=== PATIENT | female | born 1950 | race Caucasian/White ===

== ENCOUNTER 2016-09-30 12:24 | Outpatient (CLI) | payer MEDICARE, MEDICAID | END 2016-09-30 23:59 | DX: R79.89 Other specified abnormal findings of blood chemistry (principal); R68.89 Other general symptoms and signs ==

== ENCOUNTER 2017-07-12 08:00 | Outpatient (CLI) | payer MEDICARE, MEDICAID ==
[2017-07-12 18:11] LABS: ALBUMIN 3.5 g/dL (3.2-5.5); ALBUMIN/GLOBULIN RATIO 0.9 (1.0-2.2); BILIRUBIN,TOTAL 0.7 mg/dL (0.2-1.0); CALCIUM 9.4 mg/dL (8.5-10.3); CREATININE 0.7 mg/dL (0.4-1.0); TOTAL PROTEIN 7.6 g/dL (6.7-8.2)
[2017-07-12 18:36] LABS: HB2 TOTAL 12.9 g/dL; HEMOGLOBIN A1C 1.43 g/dL; HEMOGLOBIN A1C % 12.3 % (4.6-6.2)
== END 2017-07-12 08:01 | disposition home or self-care (01) ==
LOC: LAB.R 08:00
DX: E11.9 Type 2 diabetes mellitus without complications (principal)
CPT/HCPCS: 80053; 83036

== ENCOUNTER 2017-09-21 08:00 | Outpatient (CLI) | payer MEDICARE, MEDICAID ==
[2017-09-21 16:46] LABS: CALCIUM 9.3 mg/dL (8.5-10.3); CREATININE 0.6 mg/dL (0.4-1.0)
[2017-09-21 17:16] LABS: BASOPHILS # (AUTO) 0.2 10^3/uL (0.0-0.1); BASOPHILS % (AUTO) 0.9 %; EOSINOPHILS # (AUTO) 0.4 10^3/uL (0.0-0.7); EOSINOPHILS % (AUTO) 2.1 %; HGB - HEMOGLOBIN 11.8 g/dL (12.0-16.0); LYMPHOCYTES # (AUTO) 3.6 10^3/uL (1.5-3.5); LYMPHOCYTES % (AUTO) 18.6 %; MEAN CORPUSCULAR HEMOGLOBIN 27.2 pg (27.0-31.0); MEAN CORPUSCULAR HGB CONC 32.2 g/dL (32.0-36.0); MEAN CORPUSCULAR VOLUME 84.6 fL (81.0-99.0); MEAN PLATELET VOLUME 8.2 fL (7.9-10.8); MONOCYTES # (AUTO) 0.9 10^3/uL (0.0-1.0); MONOCYTES % (AUTO) 4.9 %; NEUTROPHILS # (AUTO) 14.1 10^3/uL (1.5-6.6); NEUTROPHILS % (AUTO) 73.5 %; PLT - PLATELET COUNT 484 10^3/uL (130-450); RED BLOOD COUNT 4.34 10^6/uL (4.20-5.40); RED CELL DISTRIBUTION WIDTH 14.3 % (12.0-15.0); WHITE BLOOD COUNT 19.1 x10^3/uL (4.8-10.8)
== END 2017-09-21 08:01 ==
LOC: LAB.R 08:00
DX: E11.9 Type 2 diabetes mellitus without complications (principal)
CPT/HCPCS: 80048; 85025

== ENCOUNTER 2017-09-24 08:00 | Outpatient (CLI) | payer MEDICARE, MEDICAID ==
[2017-09-24 15:06] LABS: BASOPHILS % (AUTO) 0.3 %; EOSINOPHILS % (AUTO) 2.1 %; LYMPHOCYTES % (AUTO) 19.4 %; MEAN CORPUSCULAR HEMOGLOBIN 27.2 pg (27.0-31.0); MEAN CORPUSCULAR HGB CONC 32.2 g/dL (32.0-36.0); MEAN CORPUSCULAR VOLUME 84.6 fL (81.0-99.0); MONOCYTES % (AUTO) 4.5 %; NEUTROPHILS % (AUTO) 73.7 %; PLT - PLATELET COUNT 510 10^3/uL (130-450); RED BLOOD COUNT 4.42 10^6/uL (4.20-5.40); RED CELL DISTRIBUTION WIDTH 14.8 % (12.0-15.0); WHITE BLOOD COUNT 21.2 x10^3/uL (4.8-10.8)
[2017-09-24 15:16] LABS: ABNORMAL LYMPHS % (MANUAL) 0 %; BAND NEUTROPHILS % (MANUAL) 0 %
[2017-09-24 16:15] LABS: BASOPHILS # (MANUAL) 0.2 10^3/uL (0-0.1); BASOPHILS % (MANUAL) 1 %; EOSINOPHILS # (MANUAL) 0.4 10^3/uL (0-0.7); LYMPHOCYTES # (MANUAL) 3.8 10^3/uL (1.5-3.5); LYMPHOCYTES % (MANUAL) 16 %; MONOCYTES # (MANUAL) 0.6 10^3/uL (0.0-1.0); NEUTROPHILS # (MANUAL) 16.1 10^3/uL (1.5-6.6); NEUTROPHILS % (MANUAL) 76 %; PLATELET MORPHOLOGY NORMAL APPEARANCE (NORMAL); RBC MORPHOLOGY (MULTIPLE) NORMAL APPEARANCE (NORMAL)
[2017-09-24 16:16] LABS: DIFFERENTIAL COMMENT MANUAL DIFFERENTIAL; PLATELET ESTIMATE, MANUAL INCREASED (>450,000) (NORMAL)
== END 2017-09-24 08:01 ==
LOC: LAB.R 08:00
DX: D72.829 Elevated white blood cell count, unspecified (principal)
CPT/HCPCS: 85025; 85651; 86140

== ENCOUNTER 2017-11-01 17:15 | Outpatient (CLI) | payer MEDICARE, MEDICAID ==
[2017-11-01 19:34] LABS: BASOPHILS % (AUTO) 0.7 %; EOSINOPHILS % (AUTO) 2.2 %; HGB - HEMOGLOBIN 12.5 g/dL (12.0-16.0); MEAN CORPUSCULAR HEMOGLOBIN 27.7 pg (27.0-31.0); MEAN CORPUSCULAR HGB CONC 32.4 g/dL (32.0-36.0); MEAN CORPUSCULAR VOLUME 85.4 fL (81.0-99.0); MEAN PLATELET VOLUME 8.1 fL (7.9-10.8); MONOCYTES % (AUTO) 4.5 %; NEUTROPHILS % (AUTO) 72.6 %; PLT - PLATELET COUNT 400 10^3/uL (130-450); RED CELL DISTRIBUTION WIDTH 14.7 % (12.0-15.0); WHITE BLOOD COUNT 23.7 x10^3/uL (4.8-10.8)
[2017-11-01 19:36] LABS: ABNORMAL LYMPHS % (MANUAL) 0 %; BAND NEUTROPHILS % (MANUAL) 0 %
[2017-11-01 19:51] LABS: EOSINOPHILS # (MANUAL) 0.7 10^3/uL (0-0.7); LYMPHOCYTES # (MANUAL) 5.7 10^3/uL (1.5-3.5); LYMPHOCYTES % (MANUAL) 24 %; MONOCYTES # (MANUAL) 1.2 10^3/uL (0.0-1.0); NEUTROPHILS # (MANUAL) 16.1 10^3/uL (1.5-6.6); NEUTROPHILS % (MANUAL) 68 %
[2017-11-01 19:52] LABS: ALBUMIN 3.4 g/dL (3.2-5.5); ALBUMIN/GLOBULIN RATIO 0.9 (1.0-2.2); BILIRUBIN,TOTAL 0.4 mg/dL (0.2-1.0); CALCIUM 9.5 mg/dL (8.5-10.3); CRP - C-REACTIVE PROTEIN 1.2 mg/dL (0-1.0); PLATELET ESTIMATE, MANUAL NORMAL (130-450,000) (NORMAL); PLATELET MORPHOLOGY PLATELET CLUMPING (NORMAL); RBC MORPHOLOGY (MULTIPLE) NORMAL APPEARANCE (NORMAL); TOTAL PROTEIN 7.2 g/dL (6.7-8.2)
[2017-11-01 19:53] LABS: DIFFERENTIAL COMMENT MANUAL DIFFERENTIAL
[2017-11-01 20:06] LABS: CREATININE 0.5 mg/dL (0.4-1.0)
== END 2017-11-01 17:16 | disposition home or self-care (01) ==
LOC: LAB.R 17:15
DX: D70.8 Other neutropenia (principal); M07.65 Enteropathic arthropathies, hip
CPT/HCPCS: 80053; 85025; 85651; 86140

== ENCOUNTER 2017-11-07 08:00 | Outpatient (CLI) | payer MEDICARE, MEDICAID ==
[2017-11-07 22:51] LABS: BILIRUBIN,URINE NEGATIVE (NEGATIVE); CLARITY,URINE CLEAR (CLEAR); GLUCOSE, URINE (UA) 250 mg/dL (NEGATIVE); KETONES,URINE (UA) TRACE mg/dL (NEGATIVE); LEUKOCYTE ESTERASE, URINE NEGATIVE (NEGATIVE); NITRITE,URINE NEGATIVE (NEGATIVE); OCCULT BLOOD,URINE NEGATIVE (NEGATIVE); PH,URINE 5.5 PH (5.0-7.5); PROTEIN,URINE NEGATIVE (NEGATIVE); UROBILINOGEN,URINE 1 (NORMAL) E.U./dL (NORMAL)
== END 2017-11-07 08:01 | disposition home or self-care (01) ==
LOC: LAB.R 08:00
DX: N39.0 Urinary tract infection, site not specified (principal)
CPT/HCPCS: 81001; 81003; 87086

== ENCOUNTER 2017-11-10 16:30 | Outpatient (CLI) | payer MEDICARE, MEDICAID ==
[2017-11-10 19:49] LABS: ALBUMIN/GLOBULIN RATIO 0.8 (1.0-2.2); BASOPHILS # (AUTO) 0.2 10^3/uL (0.0-0.1); BASOPHILS % (AUTO) 1.1 %; BILIRUBIN,TOTAL 0.4 mg/dL (0.2-1.0); CALCIUM 9.3 mg/dL (8.5-10.3); CREATININE 0.5 mg/dL (0.4-1.0); CRP - C-REACTIVE PROTEIN 1.1 mg/dL (0-1.0); EOSINOPHILS # (AUTO) 0.4 10^3/uL (0.0-0.7); EOSINOPHILS % (AUTO) 2.4 %; HGB - HEMOGLOBIN 11.5 g/dL (12.0-16.0); LYMPHOCYTES # (AUTO) 3.9 10^3/uL (1.5-3.5); LYMPHOCYTES % (AUTO) 20.6 %; MEAN CORPUSCULAR HEMOGLOBIN 28.2 pg (27.0-31.0); MEAN CORPUSCULAR HGB CONC 32.1 g/dL (32.0-36.0); MEAN CORPUSCULAR VOLUME 87.9 fL (81.0-99.0); MEAN PLATELET VOLUME 8.3 fL (7.9-10.8); MONOCYTES % (AUTO) 5.2 %; NEUTROPHILS # (AUTO) 13.5 10^3/uL (1.5-6.6); NEUTROPHILS % (AUTO) 70.7 %; PLT - PLATELET COUNT 531 10^3/uL (130-450); RED BLOOD COUNT 4.08 10^6/uL (4.20-5.40); RED CELL DISTRIBUTION WIDTH 14.8 % (12.0-15.0); TOTAL PROTEIN 6.9 g/dL (6.7-8.2)
== END 2017-11-10 16:31 | disposition home or self-care (01) ==
LOC: LAB.R 16:30
DX: D70.8 Other neutropenia (principal); M07.65 Enteropathic arthropathies, hip
CPT/HCPCS: 80053; 85025; 85651; 86140

== ENCOUNTER 2017-11-15 08:00 | Outpatient (CLI) | payer MEDICARE, MEDICAID ==
[2017-11-15 22:08] LABS: BILIRUBIN,URINE NEGATIVE (NEGATIVE); GLUCOSE, URINE (UA) NEGATIVE (NEGATIVE); KETONES,URINE (UA) TRACE mg/dL (NEGATIVE); LEUKOCYTE ESTERASE, URINE TRACE (NEGATIVE); NITRITE,URINE NEGATIVE (NEGATIVE); OCCULT BLOOD,URINE SMALL (NEGATIVE); PROTEIN,URINE NEGATIVE (NEGATIVE); UROBILINOGEN,URINE 1 (NORMAL) E.U./dL (NORMAL)
[2017-11-15 22:12] LABS: CLARITY,URINE CLEAR (CLEAR)
[2017-11-15 22:24] LABS: AMORPHOUS SEDIMENT,UR Rare /LPF; BACTERIA,URINE Few /HPF (None Seen); SQUAMOUS EPITHELIAL CELL,UR FEW Squamous (<= Few)
== END 2017-11-15 08:01 ==
LOC: LAB.R 08:00
DX: N39.0 Urinary tract infection, site not specified (principal)
CPT/HCPCS: 81001; 81003; 87086

== ENCOUNTER 2017-12-19 16:30 | Outpatient (CLI) | payer MEDICARE, MEDICAID ==
[2017-12-19 16:41] LABS: BASOPHILS # (AUTO) 0.2 10^3/uL (0.0-0.1); BASOPHILS % (AUTO) 0.8 %; EOSINOPHILS # (AUTO) 0.2 10^3/uL (0.0-0.7); EOSINOPHILS % (AUTO) 1.1 %; HGB - HEMOGLOBIN 11.4 g/dL (12.0-16.0); LYMPHOCYTES # (AUTO) 3.1 10^3/uL (1.5-3.5); LYMPHOCYTES % (AUTO) 13.6 %; MEAN CORPUSCULAR HEMOGLOBIN 28.7 pg (27.0-31.0); MEAN CORPUSCULAR HGB CONC 32.5 g/dL (32.0-36.0); MEAN CORPUSCULAR VOLUME 88.2 fL (81.0-99.0); MEAN PLATELET VOLUME 7.9 fL (7.9-10.8); MONOCYTES # (AUTO) 1.2 10^3/uL (0.0-1.0); MONOCYTES % (AUTO) 5.2 %; NEUTROPHILS # (AUTO) 17.9 10^3/uL (1.5-6.6); NEUTROPHILS % (AUTO) 79.3 %; PLT - PLATELET COUNT 718 10^3/uL (130-450); RED BLOOD COUNT 3.98 10^6/uL (4.20-5.40); RED CELL DISTRIBUTION WIDTH 14.8 % (12.0-15.0); WHITE BLOOD COUNT 22.6 x10^3/uL (4.8-10.8)
[2017-12-19 17:05] LABS: PLATELET ESTIMATE, MANUAL INCREASED (>450,000) (NORMAL); PLATELET MORPHOLOGY 1+ GIANT PLATELETS (NORMAL); RBC MORPHOLOGY (MULTIPLE) NORMAL APPEARANCE (NORMAL)
== END 2017-12-19 16:31 | disposition home or self-care (01) ==
LOC: LAB.R 16:30
DX: M79.89 Other specified soft tissue disorders (principal); M86.00 Acute hematogenous osteomyelitis, unspecified site
CPT/HCPCS: 85025; 85651; 86140

== ENCOUNTER 2018-01-13 18:45 | Outpatient (CLI) | payer MEDICARE, MEDICAID ==
[2018-01-13 19:22] LABS: ALBUMIN 2.8 g/dL (3.2-5.5); ALBUMIN/GLOBULIN RATIO 0.7 (1.0-2.2); ALKALINE PHOSPHATASE 94 IU/L (42-121); ALT ALANINE AMINOTRANSFERASE < 10 IU/L (10-60); AST ASPARTATE AMINOTRANSFERASE 21 IU/L (10-42); BILIRUBIN,TOTAL 0.3 mg/dL (0.2-1.0); BUN - BLOOD UREA NITROGEN 11 mg/dL (6-20); CALCIUM 9.1 mg/dL (8.5-10.3); CARBON DIOXIDE - CO2 22 mmol/L (21-32); CHLORIDE 97 mmol/L (101-111); CREATININE 0.5 mg/dL (0.4-1.0); GFR - MDRD 123 (>89); GLUCOSE 187 mg/dL (70-100); SODIUM 132 mmol/L (135-145); TOTAL PROTEIN 6.6 g/dL (6.7-8.2)
[2018-01-13 19:23] LABS: BASOPHILS # (AUTO) 0.3 10^3/uL (0.0-0.1); BASOPHILS % (AUTO) 1.4 %; EOSINOPHILS # (AUTO) 0.4 10^3/uL (0.0-0.7); EOSINOPHILS % (AUTO) 1.8 %; LYMPHOCYTES # (AUTO) 3.8 10^3/uL (1.5-3.5); LYMPHOCYTES % (AUTO) 15.9 %; MEAN CORPUSCULAR HEMOGLOBIN 28.6 pg (27.0-31.0); MEAN CORPUSCULAR HGB CONC 32.8 g/dL (32.0-36.0); MEAN CORPUSCULAR VOLUME 87.4 fL (81.0-99.0); MEAN PLATELET VOLUME 7.2 fL (7.9-10.8); MONOCYTES # (AUTO) 1.1 10^3/uL (0.0-1.0); MONOCYTES % (AUTO) 4.5 %; NEUTROPHILS # (AUTO) 18.2 10^3/uL (1.5-6.6); NEUTROPHILS % (AUTO) 76.4 %; PLT - PLATELET COUNT 653 10^3/uL (130-450); RED BLOOD COUNT 3.83 10^6/uL (4.20-5.40); RED CELL DISTRIBUTION WIDTH 14.4 % (12.0-15.0); WHITE BLOOD COUNT 23.9 x10^3/uL (4.8-10.8)
[2018-01-13 21:39] LABS: PLATELET MORPHOLOGY NORMAL APPEARANCE (NORMAL)
[2018-01-13 21:40] LABS: PLATELET ESTIMATE, MANUAL INCREASED (>450,000) (NORMAL); RBC MORPHOLOGY (MULTIPLE) NORMAL APPEARANCE (NORMAL)
== END 2018-01-13 18:46 | disposition home or self-care (01) ==
LOC: LAB.R 18:45
DX: N85.9 Noninflammatory disorder of uterus, unspecified (principal); N95.0 Postmenopausal bleeding
CPT/HCPCS: 80053; 85025

== ENCOUNTER 2018-02-04 13:55 | Outpatient (CLI) | payer MEDICARE, MEDICAID | END 2018-02-04 13:56 | disposition home or self-care (01) | LOC: RT 13:55 | PROVIDERS: ATTEND Obstetrics & Gynecology Gynecologic Oncology | DX: Z01.810 Encounter for preprocedural cardiovascular examination (principal); N85.9 Noninflammatory disorder of uterus, unspecified | CPT/HCPCS: 93005 ==

== ENCOUNTER 2018-02-04 14:50 | Outpatient (CLI) | payer MEDICARE, MEDICAID ==
--- NOTE | 2018-02-06 08:49 | Ultrasound Report ---
Reason: UTERINE MASS Procedure Date: 02/04/2018 Accession Number: [id number] / [id number] Procedure: US - Pelvic Complete CPT Code: FULL RESULT: EXAM: PELVIC ULTRASOUND EXAM DATE: 02/04/2018 03:19 PM. CLINICAL HISTORY: Uterine mass. Postmenopausal bleeding. LMP 8+ years ago. COMPARISON: None. TECHNIQUE: Realtime transabdominal evaluation of the uterus and adnexa. Patient confined to wheelchair; examination performed in chair, tilted. Patient asked to please not do transvaginal portion of the exam. FINDINGS: Uterus: Anteverted position. 13.2 x 5.3 x 7.7 cm, volume 281 cc. Heterogeneous myometrium. Heterogeneous vascular transmural mass containing punctate calcifications measuring approximately 6.5 x 5.5 x 5.8 cm. Endometrium: 4 mm. Normal. Cervix: Unremarkable. Right Ovary/Adnexa: 1.9 x 1.0 x 1.5 cm, volume 1.5 cc. Normal echotexture. No adnexal mass is seen. Left Ovary/Adnexa: 2.4 x 1.5 x 1.5 cm, volume 2.8 cc. Normal echotexture. No adnexal mass is seen. Free Fluid: None. Other: None. IMPRESSION: 1. Heterogeneous uterine mass with evaluation complicated by technical limitations detailed above. Differential considerations include fibroid versus other. Consider further imaging with female pelvis protocol MRI, versus surgical evaluation. 2. Unremarkable postmenopausal sonographic appearance of the ovaries. RADIA
== END 2018-02-04 14:51 | disposition home or self-care (01) ==
LOC: DI 14:50
PROVIDERS: ATTEND Obstetrics & Gynecology Gynecologic Oncology
DX: Z01.810 Encounter for preprocedural cardiovascular examination (principal); N85.9 Noninflammatory disorder of uterus, unspecified; N95.0 Postmenopausal bleeding
CPT/HCPCS: 76856; 93005

== ENCOUNTER 2018-03-06 16:00 | Outpatient (CLI) | payer MEDICARE, MEDICAID ==
[2018-03-06 16:57] LABS: BASOPHILS # (AUTO) 0.2 10^3/uL (0.0-0.1); BASOPHILS % (AUTO) 1.2 %; EOSINOPHILS # (AUTO) 0.3 10^3/uL (0.0-0.7); EOSINOPHILS % (AUTO) 1.3 %; LYMPHOCYTES # (AUTO) 5.1 10^3/uL (1.5-3.5); LYMPHOCYTES % (AUTO) 25.1 %; MEAN CORPUSCULAR HEMOGLOBIN 30.4 pg (27.0-31.0); MEAN CORPUSCULAR HGB CONC 35.4 g/dL (32.0-36.0); MEAN CORPUSCULAR VOLUME 85.9 fL (81.0-99.0); MEAN PLATELET VOLUME 7.3 fL (7.9-10.8); MONOCYTES # (AUTO) 0.8 10^3/uL (0.0-1.0); MONOCYTES % (AUTO) 4.1 %; NEUTROPHILS # (AUTO) 13.8 10^3/uL (1.5-6.6); NEUTROPHILS % (AUTO) 68.3 %; PLT - PLATELET COUNT 690 10^3/uL (130-450); RED BLOOD COUNT 3.95 10^6/uL (4.20-5.40); RED CELL DISTRIBUTION WIDTH 14.8 % (12.0-15.0); WHITE BLOOD COUNT 20.2 x10^3/uL (4.8-10.8)
[2018-03-06 17:03] LABS: ALBUMIN 2.6 g/dL (3.2-5.5); ALBUMIN/GLOBULIN RATIO 0.7 (1.0-2.2); ALKALINE PHOSPHATASE 117 IU/L (42-121); ALT ALANINE AMINOTRANSFERASE < 10 IU/L (10-60); AST ASPARTATE AMINOTRANSFERASE 14 IU/L (10-42); BILIRUBIN,TOTAL 0.6 mg/dL (0.2-1.0); BUN - BLOOD UREA NITROGEN 14 mg/dL (6-20); CALCIUM 8.6 mg/dL (8.5-10.3); CARBON DIOXIDE - CO2 25 mmol/L (21-32); CHLORIDE 98 mmol/L (101-111); CREATININE 0.3 mg/dL (0.4-1.0); GFR - MDRD 222 (>89); GLUCOSE 78 mg/dL (70-100); SODIUM 132 mmol/L (135-145); TOTAL PROTEIN 6.3 g/dL (6.7-8.2)
[2018-03-06 17:52] LABS: CRP - C-REACTIVE PROTEIN < 1.0 mg/dL (0-1.0)
[2018-03-06 18:16] LABS: PLATELET ESTIMATE, MANUAL INCREASED (>450,000) (NORMAL); PLATELET MORPHOLOGY NORMAL APPEARANCE (NORMAL); RBC MORPHOLOGY (MULTIPLE) NORMAL APPEARANCE (NORMAL)
[2018-03-06 18:47] LABS: HB2 TOTAL 12.5 g/dL; HEMOGLOBIN A1C 0.41 g/dL; HEMOGLOBIN A1C % 5.2 % (4.6-6.2)
== END 2018-03-06 16:01 | disposition home or self-care (01) ==
LOC: LAB.R 16:00
DX: I10 Essential (primary) hypertension (principal); E11.9 Type 2 diabetes mellitus without complications; R79.82 Elevated C-reactive protein (CRP)
CPT/HCPCS: 80053; 83036; 85025; 85651; 86140

== ENCOUNTER 2018-03-31 14:28 | Outpatient (CLI) | payer MEDICARE, OTHER, MEDICAID ==
[2018-03-31] MEDS ORDERED: DOBUTAMINE IV ONE (14:29)
--- NOTE | 2018-04-04 13:07 | CARDIAC PROCEDURE NOTE ---
DATE OF SERVICE: 03/31/2018 Physician: Dalia Dsouza MD, [facility] INDICATION: Abnormal EKG, preop evaluation. CARDIAC RISK FACTORS: Hypertension, diabetes, elevated cholesterol, postmenopausal status, unknown family history of heart disease. SUMMARY: After signing informed consent, the patient underwent a dobutamine stress echo. Resting heart rate 110, peak heart rate 136 (90% predicted maximum heart rate for age). Resting blood pressure 122/60, peak blood pressure 140/50. Dobutamine was infused for 3 minutes at 10 mcg/kg and 2 minutes and 4 seconds at 20 mcg/kg. The patient achieved an adequate peak heart rate of 136 (90% PMHR). Normal blood pressure response to dobutamine. The patient was tachycardic at rest, however, states she was nervous and had not taken morning medications. The patient had no symptoms of chest pain or shortness of breath. RESTING EKG: Sinus tachycardia, Q-waves in leads III and aVF and V5 and V6, diffuse ST segment scooping depressions and diffuse biphasic or flat T waves, prolonged QT interval. EKG AT PEAK: No change in abnormal ST segments or T waves. SUMMARY: 1. Abnormal resting EKG. 2. No new EKG changes during dobutamine stress. 3. Nuclear images reported separately. cc: Elma Sears MD TD: 04/04/2018 12:39 MTDD
== END 2018-03-31 14:29 | disposition home or self-care (01) ==
LOC: DI 14:28
PROVIDERS: ATTEND Internal Medicine Cardiovascular Disease
DX: R94.31 Abnormal electrocardiogram [ECG] [EKG] (principal)
CPT/HCPCS: 93351; J1250

== ENCOUNTER 2018-05-19 17:30 | Outpatient (CLI) | payer MEDICARE, OTHER, MEDICAID ==
[2018-05-19 19:30] LABS: BASOPHILS # (AUTO) 0.2 10^3/uL (0.0-0.1); EOSINOPHILS # (AUTO) 0.4 10^3/uL (0.0-0.7); EOSINOPHILS % (AUTO) 2.8 %; HGB - HEMOGLOBIN 10.2 g/dL (12.0-16.0); LYMPHOCYTES # (AUTO) 3.9 10^3/uL (1.5-3.5); LYMPHOCYTES % (AUTO) 24.4 %; MEAN CORPUSCULAR HEMOGLOBIN 28.7 pg (27.0-31.0); MEAN CORPUSCULAR HGB CONC 32.2 g/dL (32.0-36.0); MEAN CORPUSCULAR VOLUME 89.1 fL (81.0-99.0); MEAN PLATELET VOLUME 7.4 fL (7.9-10.8); MONOCYTES # (AUTO) 0.7 10^3/uL (0.0-1.0); MONOCYTES % (AUTO) 4.4 %; NEUTROPHILS # (AUTO) 10.7 10^3/uL (1.5-6.6); NEUTROPHILS % (AUTO) 67.4 %; PLT - PLATELET COUNT 751 10^3/uL (130-450); RED BLOOD COUNT 3.57 10^6/uL (4.20-5.40); RED CELL DISTRIBUTION WIDTH 15.1 % (12.0-15.0); WHITE BLOOD COUNT 15.9 x10^3/uL (4.8-10.8)
== END 2018-05-19 23:59 | disposition home or self-care (01) ==
LOC: LAB.R 17:30
DX: D72.829 Elevated white blood cell count, unspecified (principal)
CPT/HCPCS: 85025; 85651; 86140

== ENCOUNTER 2018-06-29 08:00 | Outpatient (CLI) | payer MEDICARE, OTHER, MEDICAID ==
[2018-06-29 15:32] LABS: BASOPHILS # (AUTO) 0.1 10^3/uL (0.0-0.1); BASOPHILS % (AUTO) 0.8 %; EOSINOPHILS # (AUTO) 0.4 10^3/uL (0.0-0.7); EOSINOPHILS % (AUTO) 3.3 %; HGB - HEMOGLOBIN 10.9 g/dL (12.0-16.0); LYMPHOCYTES # (AUTO) 3.2 10^3/uL (1.5-3.5); LYMPHOCYTES % (AUTO) 29.2 %; MEAN CORPUSCULAR HEMOGLOBIN 28.7 pg (27.0-31.0); MEAN CORPUSCULAR HGB CONC 32.5 g/dL (32.0-36.0); MEAN CORPUSCULAR VOLUME 88.1 fL (81.0-99.0); MEAN PLATELET VOLUME 8.3 fL (7.9-10.8); MONOCYTES # (AUTO) 0.6 10^3/uL (0.0-1.0); MONOCYTES % (AUTO) 5.5 %; NEUTROPHILS # (AUTO) 6.6 10^3/uL (1.5-6.6); NEUTROPHILS % (AUTO) 61.2 %; PLT - PLATELET COUNT 454 10^3/uL (130-450); RED CELL DISTRIBUTION WIDTH 14.3 % (12.0-15.0); WHITE BLOOD COUNT 10.8 x10^3/uL (4.8-10.8)
[2018-06-29 15:41] LABS: ALBUMIN 2.5 g/dL (3.2-5.5); ALBUMIN/GLOBULIN RATIO 0.7 (1.0-2.2); ALKALINE PHOSPHATASE 96 IU/L (42-121); ALT ALANINE AMINOTRANSFERASE < 10 IU/L (10-60); AST ASPARTATE AMINOTRANSFERASE 16 IU/L (10-42); BILIRUBIN,TOTAL 0.4 mg/dL (0.2-1.0); BUN - BLOOD UREA NITROGEN 11 mg/dL (6-20); CALCIUM 8.8 mg/dL (8.5-10.3); CARBON DIOXIDE - CO2 26 mmol/L (21-32); CHLORIDE 103 mmol/L (101-111); CREATININE 0.4 mg/dL (0.4-1.0); GFR - MDRD 159 (>89); GLUCOSE 159 mg/dL (70-100); SODIUM 137 mmol/L (135-145); TOTAL PROTEIN 6.1 g/dL (6.7-8.2)
[2018-06-29 19:34] LABS: HEMOGLOBIN A1C 0.48 g/dL; HEMOGLOBIN A1C % 6.1 % (4.6-6.2)
== END 2018-06-29 23:59 | disposition home or self-care (01) ==
LOC: LAB.R 08:00
PROVIDERS: ATTEND Family Medicine
DX: D72.829 Elevated white blood cell count, unspecified (principal); M07.65 Enteropathic arthropathies, hip; D64.9 Anemia, unspecified; E11.9 Type 2 diabetes mellitus without complications; E46 Unspecified protein-calorie malnutrition; I10 Essential (primary) hypertension
CPT/HCPCS: 80053; 83036; 85025; 85651; 86140

== ENCOUNTER 2018-08-01 11:50 | Outpatient (CLI) | payer MEDICARE, OTHER, MEDICAID | END 2018-08-01 23:59 | disposition home or self-care (01) | LOC: LAB.R 11:50 | DX: E78.6 Lipoprotein deficiency (principal) | CPT/HCPCS: 84132 ==

== ENCOUNTER 2018-09-10 08:58 | Outpatient (CLI) | payer MEDICARE, OTHER, MEDICAID | END 2018-09-10 08:59 | disposition critical access hospital (66) | LOC: EMS 08:58 | PROVIDERS: ATTEND Surgery | DX: R33.9 Retention of urine, unspecified (principal); R14.0 Abdominal distension (gaseous) | CPT/HCPCS: A0425; A0429 ==

== ENCOUNTER 2018-09-10 09:10 | Emergency (ER) | payer MEDICARE, OTHER, MEDICAID ==
--- NOTE | 2018-09-10 09:57 | ED Physician Documentation ---
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 At the time of my evaluation a catheter has been placed and she is no longer in pain. Review of Systems Constitutional: denies: Fever, Chills, Myalgias Eyes: denies: Decreased vision Ears: denies: Ear pain Nose: denies: Congestion Throat: denies: Sore throat Cardiac: denies: Chest pain / pressure, Palpitations Respiratory: denies: Dyspnea, Cough GI: reports: Abdominal Pain. 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 : None HEENT: None Psych: Depression, Anxiety Musculoskeletal: None Derm: None - Past Surgical History Past Surgical History: Yes General: Appendectomy Ortho: Hip replacement HEENT: Tonsil/Adenoidectomy - Present Medications Home Medications: Ambulatory Orders Medication Instructions Recorded Confirmed Insulin Glargine [Lantus] 35 units SUBQ QPM 01/05/14 03/31/15 Insulin Lispro [Humalog] 30 units SUBQ AC 01/05/14 03/31/15 Lovastatin 10 mg PO QPM 01/05/14 03/31/15 FLUoxetine [PROzac] 10 mg PO DAILY 03/18/15 03/31/15 Lisinopril 10 mg PO DAILY 03/18/15 03/31/15 oxyCODONE [Roxicodone] 5 mg PO Q4H PRN 03/18/15 03/31/15 Sulfamethoxazole/Trimethoprim 1 each PO BID #14 tablet 09/10/18 [Sulfamethoxazole-Tmp Ds Tablet] - Allergies Allergies/Adverse Reactions: Allergies Allergy/AdvReac Type Severity Reaction Status Date / Time vancomycin Allergy Unknown Unknown Verified 09/10/18 10:51 paper tape Allergy Itching Uncoded 01/05/14 15:04 - Social History Does the pt smoke?: No Smoking Status: Never smoker Does the pt drink ETOH?: No Does the pt have substance abuse?: No PD ED PE NORMAL - Vitals Vital signs reviewed: Yes (normal ) - General General: Alert and oriented X 3, No acute distress, Well developed/nourished - HEENT HEENT: Atraumatic, PERRL, EOMI - Neck Neck: Supple, no meningeal sign - Cardiac Cardiac: RRR, No murmur - Respiratory Respiratory: No respiratory distress, Clear bilaterally - Abdomen Abdomen: Soft, Non tender - Back Back: No CVA TTP, No spinal TTP - Derm Derm: Normal color, Warm and dry, No rash - Extremities Extremities: No deformity, No edema - Neuro Neuro: Alert and oriented X 3, guest services manager 2-12 intact, No motor deficit, No sensory deficit, Normal speech Eye Opening: Spontaneous Motor: Obeys Commands Verbal: Oriented GCS Score: 15 - Psych Psych: Normal mood, Normal affect Results - Vitals Vitals: Vital Signs - 24 hr 09/10/18 09:38 Temperature 37.0 C Heart Rate 97 Respiratory 18 Rate Blood Pressure 112/72 O2 Saturation 99 Oxygen O2 Source Room air - Labs Labs: Laboratory Tests 09/10/18 09:42 Urine Color DARK YELLOW Urine Clarity HAZY Urine pH 5.5 Ur Specific [place] 1.020 Urine Protein TRACE Urine Glucose (UA) NEGATIVE Urine Ketones NEGATIVE Urine Occult Blood SMALL H Urine Nitrite POSITIVE H Urine Bilirubin NEGATIVE Urine Urobilinogen 0.2 (NORMAL) Ur Leukocyte Esterase TRACE H Urine RBC 0-5 Urine WBC >25 H Ur Squamous Epith Cells RARE Squamous Amorphous Sediment Few Urine Bacteria Many H Ur Microscopic Review INDICATED Urine Culture Comments INDICATED PD MEDICAL DECISION MAKING - ED course Complexity details: reviewed results, re-evaluated patient, considered differential, d/w patient ED course: 67-year-old female with acute urinary retention has a Cano catheter placed and she does have obvious infection in the urine. She is administered Rocephin 1 g IM and we will place her on some . Departure - Departure Disposition: 01 Home, Self Care Clinical Impression: Urinary tract infection Qualifiers: Urinary tract infection type: acute cystitis Hematuria presence: without hematuria Qualified Code(s): N30.00 - Acute cystitis without hematuria Instructions: ED UTI Cystitis Female, ED Retention Urinary Female, ED Catheter Care Cano Follow-Up: Kyree Marsh DO [Primary Care Provider] - Prescriptions: Sulfamethoxazole/Trimethoprim [Sulfamethoxazole-Tmp Ds Tablet] 1 each PO BID #14 tablet
[2018-09-10 10:16] LABS: BILIRUBIN,URINE NEGATIVE (NEGATIVE); GLUCOSE, URINE (UA) NEGATIVE (NEGATIVE); KETONES,URINE (UA) NEGATIVE (NEGATIVE); LEUKOCYTE ESTERASE, URINE TRACE (NEGATIVE); NITRITE,URINE POSITIVE (NEGATIVE); OCCULT BLOOD,URINE SMALL (NEGATIVE); PH,URINE 5.5 PH (5.0-7.5); PROTEIN,URINE TRACE mg/dL (NEGATIVE); UROBILINOGEN,URINE 0.2 (NORMAL) E.U./dL (NORMAL)
[2018-09-10 10:20] LABS: CLARITY,URINE HAZY (CLEAR)
[2018-09-10 10:32] LABS: BACTERIA,URINE Many /HPF (None Seen); RBC,URINE 0-5 /HPF (0-5); SQUAMOUS EPITHELIAL CELL,UR RARE Squamous (<= Few)
[2018-09-10 10:33] LABS: AMORPHOUS SEDIMENT,UR Few /LPF
[2018-09-10] MEDS ORDERED: cefTRIAXone 1 GM VIAL IM STA (10:48)
[2018-09-10] MEDS ORDERED: LIDOCAINE 1% 2 ML VIAL MC ONE (10:48)
[2018-09-10 15:34] VITALS: BP 122/77
== END 2018-09-10 16:22 | disposition home or self-care (01) ==
LOC: EDUNIT# → ED 09:10
DX: N30.00 Acute cystitis without hematuria (principal); R33.9 Retention of urine, unspecified; I10 Essential (primary) hypertension; E11.9 Type 2 diabetes mellitus without complications; Z79.4 Long term (current) use of insulin; Z96.643 Presence of artificial hip joint, bilateral
CPT/HCPCS: 51702; 81001; 81003; 87086; 87181; 96372; 99283; 99284

== ENCOUNTER 2018-09-20 08:42 | Outpatient (CLI) | payer MEDICARE, OTHER, MEDICAID ==
[2018-09-20 15:27] LABS: BASOPHILS # (AUTO) 0.1 10^3/uL (0.0-0.1); EOSINOPHILS # (AUTO) 0.4 10^3/uL (0.0-0.7); EOSINOPHILS % (AUTO) 3.9 %; HGB - HEMOGLOBIN 11.9 g/dL (12.0-16.0); LYMPHOCYTES # (AUTO) 2.5 10^3/uL (1.5-3.5); LYMPHOCYTES % (AUTO) 24.4 %; MEAN CORPUSCULAR HGB CONC 32.1 g/dL (32.0-36.0); MEAN CORPUSCULAR VOLUME 84.1 fL (81.0-99.0); MEAN PLATELET VOLUME 8.5 fL (7.9-10.8); MONOCYTES # (AUTO) 0.5 10^3/uL (0.0-1.0); MONOCYTES % (AUTO) 4.4 %; NEUTROPHILS # (AUTO) 6.8 10^3/uL (1.5-6.6); NEUTROPHILS % (AUTO) 66.3 %; PLT - PLATELET COUNT 393 10^3/uL (130-450); RED BLOOD COUNT 4.39 10^6/uL (4.20-5.40); RED CELL DISTRIBUTION WIDTH 15.8 % (12.0-15.0); WHITE BLOOD COUNT 10.3 x10^3/uL (4.8-10.8)
[2018-09-20 15:49] LABS: ALBUMIN 3.5 g/dL (3.2-5.5); ALBUMIN/GLOBULIN RATIO 0.9 (1.0-2.2); BILIRUBIN,TOTAL 0.6 mg/dL (0.2-1.0); CALCIUM 9.9 mg/dL (8.5-10.3); CREATININE 0.5 mg/dL (0.4-1.0); TOTAL PROTEIN 7.5 g/dL (6.7-8.2)
[2018-09-20 16:25] LABS: HB2 TOTAL 12.7 g/dL; HEMOGLOBIN A1C 0.69 g/dL; HEMOGLOBIN A1C % 7.1 % (4.6-6.2)
== END 2018-09-20 08:43 | disposition home or self-care (01) ==
LOC: LAB.WCP 08:42
PROVIDERS: ATTEND Physician Assistant
DX: I10 Essential (primary) hypertension (principal); E11.9 Type 2 diabetes mellitus without complications
CPT/HCPCS: 36415; 80053; 83036; 85025

== ENCOUNTER 2018-10-25 10:30 | Outpatient (CLI) | payer MEDICARE, OTHER, MEDICAID | END 2018-10-25 10:31 | disposition home or self-care (01) | LOC: LAB.WCP 10:30 | PROVIDERS: ATTEND Physician Assistant | DX: R35.0 Frequency of micturition (principal) | CPT/HCPCS: 81002; 87086; 87181 ==

== ENCOUNTER 2018-10-26 08:25 | Outpatient (CLI) | payer MEDICARE, OTHER, MEDICAID | END 2018-10-26 08:26 | disposition critical access hospital (66) | LOC: EMS 08:25 | PROVIDERS: ATTEND Surgery | DX: M79.662 Pain in left lower leg (principal); V00.818A Other accident with wheelchair (powered), initial encounter | CPT/HCPCS: A0425; A0429 ==

== ENCOUNTER 2018-10-26 08:47 | Emergency (ER) | payer MEDICARE, OTHER, MEDICAID ==
--- NOTE | 2018-10-26 09:00 | ED Physician Documentation ---
PD HPI LOWER EXT INJURY - Stated complaint Stated Complaint: L LEG PAIN - History obtained from History obtained from: Patient, EMS - History of Present Illness PD HPI LOW EXT INJURY LOCATION: Left, Knee, Lower leg Type of injury: Blunt / blow Timing - onset: Yesterday Worsened by: Moving, Palpating Associated symptoms: Swelling Contributing factors: Prior ortho surgery - Additional information Additional information: The patient is a 68-year-old female who arrives via ambulance, complaining of pain in her left knee and lower leg. 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 Yesterday she was at the doctor's office and accidentally banged her left knee into the wall while in her wheelchair. She denies any other injuries. 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 : None HEENT: None Psych: Depression, Anxiety Musculoskeletal: None Derm: None - Past Surgical History Past Surgical History: Yes General: Appendectomy Ortho: Hip replacement, Other (S/P bilateral hip prostheses removal for infection.) /FLIGHT CREW TIME CLERK: Hysterectomy HEENT: Tonsil/Adenoidectomy - Present Medications Home Medications: Ambulatory Orders Medication Instructions Recorded Confirmed oxyCODONE [Roxicodone] 5 mg PO Q4H PRN 03/18/15 03/31/15 Amlodipine Besylate 5 mg DAILY 10/26/18 10/26/18 Aspirin 81 mg DAILY 10/26/18 10/26/18 Atorvastatin [Lipitor] 10 mg DAILY 10/26/18 10/26/18 metFORMIN [Glucophage] 500 mg DAILY 10/26/18 10/26/18 - Allergies Allergies/Adverse Reactions: Allergies Allergy/AdvReac Type Severity Reaction Status Date / Time vancomycin Allergy Unknown Unknown Verified 10/26/18 09:05 paper tape Allergy Itching Uncoded 01/05/14 15:04 - Social History Does the pt smoke?: No Smoking Status: Never smoker Does the pt drink ETOH?: No Does the pt have substance abuse?: No PD ED PE NORMAL - Vitals Vital signs reviewed: Yes - General General: Alert and oriented X 3, Well developed/nourished - HEENT HEENT: Atraumatic, Moist mucous membranes - Neck Neck: No adenopathy, No JVD - Cardiac Cardiac: RRR - Respiratory Respiratory: No respiratory distress, Clear bilaterally - Abdomen Abdomen: Soft, Non tender - Derm Derm: No rash - Extremities Extremities: No calf tenderness / cord, Other (There is slight swelling about the left knee, with associated tenderness to palpation. She resists range of motion of the left knee secondary to pain. There is no calf tenderness. Distal neurovascular is intact. There is superficial skin sore on the left big toe.) - Neuro Neuro: Alert and oriented X 3, No motor deficit, No sensory deficit Results - Vitals Vitals: Vital Signs - 24 hr 10/26/18 10/26/18 10/26/18 08:48 09:20 10:17 Temperature 36 C L 37 C Heart Rate 90 90 87 Respiratory 16 18 16 Rate Blood Pressure 173/61 H 154/92 H 139/78 H O2 Saturation 100 92 100 Oxygen O2 Source Room air - Rads (name of study) Left knee Radiology: Prelim report reviewed, EMP read contemporaneously, See rad report (Nonunion or incomplete union at the previous distal femoral fracture.) PD MEDICAL DECISION MAKING - ED course Complexity details: reviewed old records, reviewed results, re-evaluated patient, considered differential, d/w patient ED course: The patient's presentation is significant for contusion to the left knee. X-ray reveals an old distal femur fracture with malunion, intact with hardware. There is no new fracture identified. Treatment in the emergency department included administration of oxycodone 5 mg orally. This did improve her pain. I discussed with her and her female business account specialist the results of the x-ray, symptomatic treatment and outpatient follow- up, as well as potentially worrisome signs or symptoms that should prompt reevaluation in the emergency department. 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 You can continue to use your previously prescribed pain medication as needed. Follow-up with your primary physician within 2 weeks. Call to schedule an appointment. Return to the emergency department if increasing pain or swelling, or otherwise worsening symptoms.
[2018-10-26] MEDS ORDERED: oxyCODONE 5 MG TABLET PO STA (09:34)
--- NOTE | 2018-10-26 09:49 | XRAY Report ---
Reason: left knee pain after impacting wall. Procedure Date: 10/26/2018 Accession Number: [id number] / [id number] Procedure: XR - Knee 2 View LT CPT Code: FULL RESULT: EXAM: LEFT KNEE RADIOGRAPHY EXAM DATE: 10/26/2018 08:56 AM. CLINICAL HISTORY: Left knee pain after impacting wall. COMPARISON: KNEE 4 VIEW LT 01/05/2014 3:06 PM. TECHNIQUE: 3 views. FINDINGS: Bones: Nonunion or incomplete union at the previous distal femoral comminuted fracture. Osteopenia. Lateral plate and distal screws. Proximal portion of the plate not visualized. Joints: Degenerative changes with osteophytes in the medial joint. Small effusion. Soft Tissues: Vascular calcifications. No soft tissue swelling. IMPRESSION: Nonunion or incomplete union at the previous distal femoral fracture RADIA
[2018-10-26 10:59] VITALS: BP 136/73
== END 2018-10-26 12:04 | disposition home or self-care (01) ==
LOC: EDUNIT# → ED 08:47
DX: S80.02XA Contusion of left knee, initial encounter (principal); V00.812A Wheelchair (powered) colliding with stationary object, initial encounter; Y92.59 Other trade areas as the place of occurrence of the external cause; S72.402P Unspecified fracture of lower end of left femur, subsequent encounter for closed fracture with malunion; X58.XXXD Exposure to other specified factors, subsequent encounter; L98.9 Disorder of the skin and subcutaneous tissue, unspecified; I10 Essential (primary) hypertension; E11.9 Type 2 diabetes mellitus without complications; Z79.84 Long term (current) use of oral hypoglycemic drugs; Z79.82 Long term (current) use of aspirin
CPT/HCPCS: 73560; 99282; 99283; A9270

== ENCOUNTER 2018-10-26 12:02 | Outpatient (CLI) | payer MEDICARE, OTHER, MEDICAID | END 2018-10-26 12:03 | disposition home or self-care (01) | LOC: EMS 12:02 | PROVIDERS: ATTEND Surgery | DX: S80.02XA Contusion of left knee, initial encounter (principal); Z74.01 Bed confinement status; Z89.622 Acquired absence of left hip joint; Z89.621 Acquired absence of right hip joint; V00.818A Other accident with wheelchair (powered), initial encounter | CPT/HCPCS: A0425; A0428 ==

== ENCOUNTER 2018-12-28 | Outpatient (CLI) | payer MEDICARE, OTHER, MEDICAID | END 2018-12-28 11:56 | disposition critical access hospital (66) | DX: R44.3 Hallucinations, unspecified (principal); R82.90 Unspecified abnormal findings in urine | CPT/HCPCS: A0425; A0429 ==

== ENCOUNTER 2018-12-28 12:10 | Inpatient (IN) | payer MEDICARE, OTHER, MEDICAID ==
[2018-12-28] MEDS ORDERED: SODIUM CHLORIDE 0.9% 1,000 ML IV ONE (12:40)
[2018-12-28] MEDS ORDERED: LACTATED RINGERS 1,000 ML IV STA (12:40)
--- NOTE | 2018-12-28 12:43 | ED Physician Documentation ---
History of Present Illness - Stated complaint Stated Complaint: DEHYDRATED - Chief complaint Chief Complaint: General - History obtained from History obtained from: Patient - History of Present Illness Timing: Other (This is a 68-year-old woman who is the resident of because she had hip replacements that became complicated and basically were infected and now she has no hip on either side and she is accepting of the fact that she is paraplegic and unable to walk. She is incontinent of urine. Over the last week she has been having troubles with both visual nodule auditory hallucinations despite no history of psychiatric illness or new medications. She also had a fever a couple of days ago which was poorly documented and foul and orange smelling urine. 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 : None HEENT: None Psych: Depression, Anxiety Musculoskeletal: None Derm: None - Past Surgical History Past Surgical History: Yes General: Appendectomy Ortho: Hip replacement, Other /POST OFFICE MANAGER: Hysterectomy HEENT: Tonsil/Adenoidectomy - Present Medications Home Medications: Ambulatory Orders Medication Instructions Recorded Confirmed RX: oxyCODONE [Roxicodone] 5 mg PO Q4H PRN 03/18/15 03/31/15 RX: Amlodipine Besylate 5 mg DAILY 10/26/18 10/26/18 RX: Aspirin 81 mg DAILY 10/26/18 10/26/18 RX: Atorvastatin [Lipitor] 10 mg DAILY 10/26/18 10/26/18 RX: metFORMIN [Glucophage] 500 mg DAILY 10/26/18 10/26/18 - Allergies Allergies/Adverse Reactions: Allergies Allergy/AdvReac Type Severity Reaction Status Date / Time vancomycin Allergy Unknown Unknown Verified 12/28/18 12:17 paper tape Allergy Itching Uncoded 01/05/14 15:04 - Social History Does the pt smoke?: No Smoking Status: Never smoker Does the pt drink ETOH?: No Does the pt have substance abuse?: No - Immunizations Immunizations are current?: Yes PD ED PE NORMAL - Vitals Vital signs reviewed: Yes - General General: No acute distress, Other (He is alert and oriented to person place and events, but a little off on time and is surprised when I tell her it is , she thought it was Tuesday.) - HEENT HEENT: PERRL, EOMI, Other (Very dry mucous membranes) - Cardiac Cardiac: Other (Slight regular tachycardia without murmur) - Respiratory Respiratory: No respiratory distress, Clear bilaterally - Abdomen Abdomen: Normal bowel sounds, Soft, Non tender - Extremities Extremities: No edema, No calf tenderness / cord - Neuro Neuro: Alert and oriented X 3, Normal speech Results - Vitals Vitals: Vital Signs - 24 hr 12/28/18 12/28/18 12:17 14:30 Temperature 36.7 C Heart Rate 103 H 100 Respiratory 15 17 Rate Blood Pressure 107/64 110/58 L O2 Saturation 95 98 Oxygen O2 Source Room air - Labs Labs: Laboratory Tests 12/28/18 12/28/18 12/28/18 13:00 13:00 13:10 WBC 28.2 H RBC 3.70 L Hgb 10.3 L Hct 32.2 L MCV 87.0 MCH 27.8 MCHC 32.0 RDW 15.0 Plt Count 299 MPV 9.5 Neut # (Auto) 24.0 H Lymph # (Auto) 2.0 Collin # (Auto) 1.5 H Eos # (Auto) 0.3 Baso # (Auto) 0.1 Absolute Nucleated RBC 0.00 Nucleated RBC % 0.0 Manual Slide Review Indicated WBC Morphology Platelet Estimate NORMAL (130-450,000) Platelet Morphology NORMAL APPEARANCE RBC Morph Micro Appear NORMAL APPEARANCE Sodium 136 Potassium 3.2 L Chloride 98 L Carbon Dioxide 23 Anion Gap 15.0 H BUN 19 Creatinine 0.7 Estimated GFR (MDRD) 83 L Glucose 141 H Lactic Acid 1.0 Calcium 9.3 Total Bilirubin 1.3 H AST 14 ALT < 10 L Alkaline Phosphatase 124 H Total Protein 6.1 L Albumin 2.2 L Globulin 3.9 Albumin/Globulin Ratio 0.6 L Lipase 16 L Urine Color Urine Clarity Urine pH Ur Specific [place] Urine Protein Urine Glucose (UA) Urine Ketones Urine Occult Blood Urine Nitrite Urine Bilirubin Urine Urobilinogen Ur Leukocyte Esterase Urine RBC Urine WBC Ur Squamous Epith Cells Urine Bacteria Ur Microscopic Review Urine Culture Comments 12/28/18 13:23 WBC RBC Hgb Hct MCV MCH MCHC RDW Plt Count MPV Neut # (Auto) Lymph # (Auto) [place] # (Auto) Eos # (Auto) Baso # (Auto) Absolute Nucleated RBC Nucleated RBC % Manual Slide Review WBC Morphology Platelet Estimate Platelet Morphology RBC Morph Micro Appear Sodium Potassium Chloride Carbon Dioxide Anion Gap BUN Creatinine Estimated GFR (MDRD) Glucose Lactic Acid Calcium Total Bilirubin AST ALT Alkaline Phosphatase Total Protein Albumin Globulin Albumin/Globulin Ratio Lipase Urine Color YELLOW Urine Clarity CLOUDY Urine pH 6.0 Ur Specific [place] 1.010 Urine Protein 30 H Urine Glucose (UA) NEGATIVE Urine Ketones 15 H Urine Occult Blood SMALL H Urine Nitrite POSITIVE H Urine Bilirubin NEGATIVE Urine Urobilinogen 1 (NORMAL) Ur Leukocyte Esterase LARGE H Urine RBC 6-10 H Urine WBC >25 H Ur Squamous Epith Cells FEW Squamous Urine Bacteria Many H Ur Microscopic Review INDICATED Urine Culture Comments INDICATED PD MEDICAL DECISION MAKING - ED course ED course: 68-year-old woman presents with an acute encephalopathy marked by poor appetite, hallucinations and reported fever. She appears quite dehydrated and is found to have a UTI with WBC 28 thousand. She was cultured up and given Rocephin and a call was placed to Dr. Dsouza for admission. Departure - Departure Disposition: 66 [facility] DC/Xfer Clinical Impression: UTI (urinary tract infection), Dehydration, Encephalopathy Condition: Serious Discharge Date/Time: 12/28/18 16:08
[2018-12-28 13:28] LABS: BASOPHILS # (AUTO) 0.1 10^3/uL (0.0-0.1); BASOPHILS % (AUTO) 0.4 %; EOSINOPHILS # (AUTO) 0.3 10^3/uL (0.0-0.7); HGB - HEMOGLOBIN 10.3 g/dL (12.0-16.0); MEAN CORPUSCULAR HEMOGLOBIN 27.8 pg (27.0-31.0); MEAN PLATELET VOLUME 9.5 fL (7.9-10.8); MONOCYTES # (AUTO) 1.5 10^3/uL (0.0-1.0); MONOCYTES % (AUTO) 5.3 %; NEUTROPHILS % (AUTO) 84.9 %; PLT - PLATELET COUNT 299 10^3/uL (130-450); WHITE BLOOD COUNT 28.2 x10^3/uL (4.8-10.8)
[2018-12-28 13:42] LABS: ALBUMIN 2.2 g/dL (3.2-5.5); ALBUMIN/GLOBULIN RATIO 0.6 (1.0-2.2); ALKALINE PHOSPHATASE 124 IU/L (42-121); ALT ALANINE AMINOTRANSFERASE < 10 IU/L (10-60); AST ASPARTATE AMINOTRANSFERASE 14 IU/L (10-42); BILIRUBIN,TOTAL 1.3 mg/dL (0.2-1.0); BUN - BLOOD UREA NITROGEN 19 mg/dL (6-20); CALCIUM 9.3 mg/dL (8.5-10.3); CARBON DIOXIDE - CO2 23 mmol/L (21-32); CHLORIDE 98 mmol/L (101-111); CREATININE 0.7 mg/dL (0.4-1.0); GFR - MDRD 83 (>89); GLUCOSE 141 mg/dL (70-100); LIPASE 16 U/L (22-51); SODIUM 136 mmol/L (135-145); TOTAL PROTEIN 6.1 g/dL (6.7-8.2)
[2018-12-28 13:54] LABS: PLATELET ESTIMATE, MANUAL NORMAL (130-450,000) (NORMAL); PLATELET MORPHOLOGY NORMAL APPEARANCE (NORMAL)
[2018-12-28 13:55] LABS: RBC MORPHOLOGY (MULTIPLE) NORMAL APPEARANCE (NORMAL)
[2018-12-28 14:04] LABS: BILIRUBIN,URINE NEGATIVE (NEGATIVE); GLUCOSE, URINE (UA) NEGATIVE (NEGATIVE); KETONES,URINE (UA) 15 mg/dL (NEGATIVE); LEUKOCYTE ESTERASE, URINE LARGE (NEGATIVE); NITRITE,URINE POSITIVE (NEGATIVE); OCCULT BLOOD,URINE SMALL (NEGATIVE); PROTEIN,URINE 30 mg/dL (NEGATIVE); UROBILINOGEN,URINE 1 (NORMAL) E.U./dL (NORMAL)
[2018-12-28 14:06] LABS: CLARITY,URINE CLOUDY (CLEAR)
[2018-12-28] MEDS ORDERED: cefTRIAXone 1 GM in SODIUM CHLORIDE 0.9% MINIBAG 100 ML IV STA (14:09)
[2018-12-28 14:12] LABS: BACTERIA,URINE Many /HPF (None Seen); SQUAMOUS EPITHELIAL CELL,UR FEW Squamous (<= Few)
[2018-12-28] MEDS ORDERED: SODIUM CHLORIDE FLUSH 0.9% 10 ML SYRINGE IVP PRN (14:41)
--- NOTE | 2018-12-28 16:21 | HISTORY & PHYSICAL EXAMINATION ---
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 The patient has been residing at [facility], and recently attended a wedding which required her to sit in a wheelchair for a prolonged period of time. EMS brought the patient in and reported that the patient had not been eating or drinking well for the last week, concerned that she may be dehydrated. Upon arrival to the ED the patient noted that over the last week she has been having troubles with both visual nodule auditory hallucinations despite no history of psychiatric illness or new medications. She also had a fever reported up to 101 F taken via tympanic, a couple of days ago, vomiting after eating spaghetti, dark urine, and foul smelling urine. She is not eating or drinking well, has mucous membranes, poor dental hygiene, complains of extreme lethargy. On my exam, the patient has slight tenderness noted in her bilateral flank region, tenderness in her lower quadrants of her abdomen, but appears to be a good historian and is no longer having hallucinations. Labs show an elevated WBC count of 28.2, H/H 10.3/32.2, neut # 24.0, mono # 1.5, sodium 136, potassium 3.2, chloride 98, creatinine 0.7, BUN 19, GFR 83, glucose 141, lactic acid 1.0, total bilirubin 1.3, alk phos 124, and her urinalysis was grossly abnormal indicating acute infection with +urine protein of 30, urine ketones 15, positive nitrites, large urine leukocyte esterase, and a culture is pending. Her vital signs were stable and she was afebrile with a temp max of 36.7 C. She will be admitted to inpatient, and a retro-peritoneal ultrasound has been ordered for my finding of flank pain worrisome for pyelonephritis. 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 Living arrangement: At home Living Situation: With caregiver(s) (adult family home) Social History Notes: The patient is to Marcell, they have 3 grown children, and 2 grand-children. 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 She is bed bound. She denies alcoholism, illicit drug use or tobacco use. She wishes to be a DNR. - Substance History Use: Uses substance without health or social issues: NONE Abuse: Recurrent use of substance despite neg consequences: NONE Dependence: Experiences withdrawal or developed tolerances: NONE - POLST Patient has POLST: No POLST Status: DNR Meds/Allgy - Home Medications Home Medications: Ambulatory Orders Medication Instructions Recorded Confirmed oxyCODONE [Roxicodone] 5 mg PO TID 03/18/15 12/29/18 Amlodipine Besylate 5 mg PO DAILY 10/26/18 12/29/18 Aspirin 81 mg PO DAILY 10/26/18 12/29/18 Atorvastatin [Lipitor] 10 mg PO QPM 10/26/18 12/29/18 metFORMIN [Glucophage] 500 mg PO QDBREAKFAST 10/26/18 12/29/18 Acetaminophen 500 mg PO DAILY 12/29/18 12/29/18 Calcium Carbonate 500 mg PO Q12H PRN 12/29/18 12/29/18 Cholecalciferol (Vitamin D3) 2,000 units PO DAILY 12/29/18 12/29/18 [Vitamin D3] Clotrimazole [Clotrimazole AF] 1 applic TOP BID PRN 12/29/18 12/29/18 Diclofenac Potassium 50 mg PO TID PRN 12/29/18 12/29/18 Duloxetine HCl 30 mg PO DAILY 12/29/18 12/29/18 Folic Acid 0.8 mg PO DAILY 12/29/18 12/29/18 Multivitamin W/Minerals [Theragran 1 tab PO DAILY 12/29/18 12/29/18 M] Nystatin [Nystop] 1 applic TOP DAILY PRN 12/29/18 12/29/18 Sennosides [Senna] 8.6 mg PO BID 12/29/18 12/29/18 diphenhydrAMINE HCl 25 mg PO Q4H PRN 12/29/18 12/29/18 [Diphenhydramine HCl] - Allergies Allergies/Adverse Reactions: Allergies Allergy/AdvReac Type Severity Reaction Status Date / Time vancomycin Allergy Unknown Unknown Verified 12/28/18 12:17 paper tape Allergy Itching Uncoded 01/05/14 15:04 Review of Systems - Constitutional Constitutional: reports: Fatigue, Fever, Chills, Weakness, Poor appetite - Eyes Eyes: reports: Vision loss, Corrective lenses - Ears, Nose & Throat Ears, Nose & Throat: reports: Nasal congestion, Postnasal drainage, Sore throat, Hoarseness, Dental decay - Cardiovascular Cariovascular: reports: Edema - Respiratory Respiratory: reports: Cough (chronic), Snoring - Gastrointestinal Gastrointestinal: reports: Abdominal distention, Constipation, Diarrhea, Nausea, Vomiting, Reflux/heartburn, Bloating, Poor appetite - Genitourinary Genitourinary: reports: Dysuria, Frequency, Urgency, Incontinence, Sexual dysfunction - Musculoskeletal Musculoskeletal: reports: Back pain, Muscle aches, Stiffness, Limited range of motion, Muscle weakness, Joint pain, Joint swelling - Neurological Neurological: reports: General weakness, Focal weakness, Memory problems, Pre- existing deficit, Abnormal gait, Incoordination, Slurred speech - Psychiatric Psychiatric: reports: Depression, Suicidal - Hematologic/Lymphatic Hematologic/Lymphatic: reports: Recurrent infections - All Other Systems All Other Systems: reports: Reviewed and negative Prior Level of Functionality: bed bound, no hip joints bilaterally Exam - Vital Signs Reviewed Vital Signs: Yes Vital Signs: Vital Signs x48h Temp Pulse Pulse Resp BP BP Pulse Ox 12/28/18 16:16 36.6 C 105 H 20 116/62 98 12/28/18 14:30 100 17 110/58 L 98 12/28/18 12:17 36.7 C 103 H 15 107/64 95 - Physical Exam General Appearance: positive: No acute distress, Alert Eyes Bilateral: positive: PERRL ENT: positive: Pharyngeal erythema, Dry mucous membranes Neck: positive: Thyroid nml, No JVD Respiratory: positive: Chest non-tender, No respiratory distress, Other (scattered crackles bilaterally) Cardiovascular: positive: Regular rate & rhythm, No gallop, Systolic murmur, Decreased pulse(s) Peripheral Pulses: positive: 1+ Abdomen: positive: Tenderness, Guarding, Hepatomegaly, Abnml bowel sounds Back: positive: CVA tenderness (R), CVA tenderness (L) Skin: positive: No rash, Warm, Dry, Pallor Extremities: positive: Non-tender, Pedal edema, Joint swelling (chronic) Neurologic/Psychiatric: positive: Oriented x3, CN's nml (2-12), Weakness, Sensory loss, Slurred/abnml speech (due to dry mouth, baseline sluggish speech at times), Depressed mood/affect Reflexes: Bicep (R): 2+, Bicep (L): 2+ Conclusion/Plan - Problem List (1) Pyelonephritis Conclusion/Plan: - Patient reports hallucinations, extreme lethargy, weakness, poor appetite, nausea, vomiting, & foul smelling urine - Baseline urinary incontinence, no recent diarrhea - + UA, started on IV Rocephin in the ED - + Body aches, tenderness with palpation to bilateral flanks on exam Plan: Obtain retro peritoneal ultrasound, continue daily Rocephin, await urine culture results (2) Urinary incontinence Conclusion/Plan: - No use of bladder since becoming bed bound - Chronic for the past several years Plan: Obtain kidney ultrasound, offer pure wick, consider bladder scans Qualifiers: Urinary Incontinence type: functional incontinence Qualified Code(s): R39.81 - Functional urinary incontinence (3) Acute metabolic encephalopathy Conclusion/Plan: - Patient reported vivid hallucinations with descriptions of the clothes the men were wearing during the hallucinations - This was frightening to the patient, but no recent hallucinations in the past 1 day - Much more alert and a better historian since arriving in the ED in which IVFs were given Plan: continue to monitor (4) Chronic pain disorder Conclusion/Plan: - Due to bilateral joint removal (5) Hallucination Conclusion/Plan: - Patient described this symptom that has been bothering her and happened last yesterday (6) Diabetes type 2, controlled Conclusion/Plan: - Takes Metformin at home Plan: Hold metformin, SSI, lantus nightly of 5 units, blood sugar checks, general diet due to poor PO intake recently (7) Bedbound Conclusion/Plan: - A result of the absence of bilateral hip joints - Lab Results Lab results reviewed: Yes Deangelo Bones: 12/29/18 05:00 12/29/18 05:00 Core Measures - Anticipated LOS I expect patient to be DC'd or transferred within 96 hours.: Yes - DVT/VTE - Prophylaxis VTE/DVT Device ordered at admit?: Yes VTE/DVT Prophylaxis med ordered at admit?: Yes - Stroke - Rehab Assessment Rehab services assessment to be ordered?: No Not Ordered - Medical Reason: Contraindicated - AMI - Statin at Admit Aspirin Prescribed on Admit: Yes
[2018-12-28] MEDS: ENOXAPARIN 40 MG/0.4 ML SYRINGE SUBQ SCH (16:37)
[2018-12-28] MEDS: SODIUM CHLORIDE 0.9% 1,000 ML IV SCH (18:51)
[2018-12-28] MEDS: SODIUM CHLORIDE FLUSH 0.9% 10 ML SYRINGE IVP SCH ×2 (18:51→23:37)
[2018-12-28] MEDS ORDERED: POTASSIUM CHLORIDE 20 MEQ TABLET PO ONE (19:21)
[2018-12-28] MEDS ORDERED: oxyCODONE 5 MG TABLET PO PRN (21:50)
--- NOTE | 2018-12-29 00:17 | Ultrasound Report ---
Reason: pyelonephritis Procedure Date: 12/28/2018 Accession Number: [id number] / [id number] Procedure: US - Retroperitoneal CPT Code: FULL RESULT: EXAM: RENAL ULTRASOUND EXAM DATE: 12/28/2018 10:56 PM. CLINICAL HISTORY: Pyelonephritis. COMPARISON: None. TECHNIQUE: Real-time scanning was performed with static images obtained. FINDINGS: Right Kidney: Right kidney measures 12.0 x 6.7 x 6.5 cm. Mild to moderate right hydronephrosis is present with suspected subtle echoes seen within dilated calyces and several echogenic areas in calyces with possible posterior shadowing. Shadowing calculus noted in region of UPJ measuring 1.6 cm. Left Kidney: Left kidney measures 9.9 x 6.3 x 5.8 cm. Normal echotexture with no stones, contour-deforming masses, or hydronephrosis. Bladder: Bilateral jets not seen (observed for 5 minutes). The prevoid bladder volume was 39.71 cc. Postvoid bladder volume not obtained. Other: None. IMPRESSION: 1. Relative enlargement of right kidney compared to left with mild to moderate right hydronephrosis. Suspected subtle are present within dilated right calyces along with several echogenic areas with possible posterior shadowing which could represent calculi. Shadowing calculus also noted in region of UPJ measuring 1.6 cm. Hydronephrosis may be related to obstructive calculus and/or infection. Echoes within collecting system raises concern for possible pyonephrosis although could also be related to blood products. Recommend clinical correlation and correlation with urinalysis. CT can be performed for further evaluation. 2. Bilateral ureteral jets not seen in the bladder (observed for 5 minutes). Obstructive process involving ureter(s) cannot be excluded. RADIA
[2018-12-29] MEDS: SODIUM CHLORIDE 0.9% 1,000 ML IV SCH (04:46)
[2018-12-29 05:08] LABS: BASOPHILS % (AUTO) 0.2 %; EOSINOPHILS % (AUTO) 0.7 %; HGB - HEMOGLOBIN 9.6 g/dL (12.0-16.0); LYMPHOCYTES % (AUTO) 5.5 %; MEAN CORPUSCULAR HEMOGLOBIN 28.3 pg (27.0-31.0); MEAN CORPUSCULAR HGB CONC 32.7 g/dL (32.0-36.0); MEAN CORPUSCULAR VOLUME 86.7 fL (81.0-99.0); MEAN PLATELET VOLUME 8.8 fL (7.9-10.8); MONOCYTES % (AUTO) 4.7 %; NEUTROPHILS % (AUTO) 84.8 %; PLT - PLATELET COUNT 345 10^3/uL (130-450); RED BLOOD COUNT 3.39 10^6/uL (4.20-5.40); RED CELL DISTRIBUTION WIDTH 15.2 % (12.0-15.0); WHITE BLOOD COUNT 30.5 x10^3/uL (4.8-10.8)
[2018-12-29 05:10] LABS: ABNORMAL LYMPHS % (MANUAL) 0 %
[2018-12-29 05:21] LABS: ALBUMIN 1.9 g/dL (3.2-5.5); ALBUMIN/GLOBULIN RATIO 0.5 (1.0-2.2); ALKALINE PHOSPHATASE 121 IU/L (42-121); ALT ALANINE AMINOTRANSFERASE < 10 IU/L (10-60); AST ASPARTATE AMINOTRANSFERASE 14 IU/L (10-42); BILIRUBIN,TOTAL 1.4 mg/dL (0.2-1.0); BUN - BLOOD UREA NITROGEN 16 mg/dL (6-20); CALCIUM 9.1 mg/dL (8.5-10.3); CARBON DIOXIDE - CO2 20 mmol/L (21-32); CHLORIDE 102 mmol/L (101-111); CREATININE 0.8 mg/dL (0.4-1.0); GFR - MDRD 71 (>89); GLUCOSE 83 mg/dL (70-100); MAGNESIUM 1.5 mg/dL (1.7-2.8); SODIUM 135 mmol/L (135-145); TOTAL PROTEIN 5.5 g/dL (6.7-8.2)
[2018-12-29 05:25] LABS: HB2 TOTAL 9.9 g/dL; HEMOGLOBIN A1C 0.61 g/dL; HEMOGLOBIN A1C % 7.8 % (4.6-6.2)
[2018-12-29 05:31] LABS: BAND NEUTROPHILS % (MANUAL) 10 %; EOSINOPHILS # (MANUAL) 1.5 10^3/uL (0-0.7); LYMPHOCYTES # (MANUAL) 1.2 10^3/uL (1.5-3.5); LYMPHOCYTES % (MANUAL) 4 %; METAMYELOCYTES % (MANUAL) 1 %; MONOCYTES # (MANUAL) 0.9 10^3/uL (0.0-1.0); MYELOCYTES % (MANUAL) 1 %; PLATELET ESTIMATE, MANUAL NORMAL (130-450,000) (NORMAL); RBC MORPHOLOGY (MULTIPLE) NORMAL APPEARANCE (NORMAL)
[2018-12-29 05:32] LABS: DIFFERENTIAL COMMENT MANUAL DIFFERENTIAL
[2018-12-29] MEDS ORDERED: IOVERSOL 320 100 ML VIAL IVP ONE ×2 (07:27→08:52)
[2018-12-29] MEDS: INSULIN ASPART 300 UNIT/3 ML PEN SUBQ SCH ×2 (08:10→12:48)
[2018-12-29] MEDS: ENOXAPARIN 40 MG/0.4 ML SYRINGE SUBQ SCH ×2 (08:31→09:14)
[2018-12-29] MEDS: POLYETHYLENE GLYCOL 3350 17 GM PACKET PO SCH ×2 (08:31→09:14)
[2018-12-29] MEDS: SODIUM CHLORIDE FLUSH 0.9% 10 ML SYRINGE IVP SCH (08:32)
[2018-12-29] MEDS ORDERED: cefTRIAXone 2 GM VIAL ONE (08:34)
--- NOTE | 2018-12-29 08:55 | CT Report ---
Reason: Pyelonephritis. Rule out obstructing stone. Procedure Date: 12/29/2018 Accession Number: [id number] / [id number] Procedure: CT - Abdomen/Pelvis W CPT Code: FULL RESULT: EXAM: CT ABDOMEN AND PELVIS EXAM DATE: 12/29/2018 08:21 AM. CLINICAL HISTORY: Pyelonephritis. Rule out obstructing stone. COMPARISONS: RETROPERITONEAL 12/28/2018 9:37 PM PELVIC W/TRANSVAGINAL 02/04/2018 2:21 PM. TECHNIQUE: Routine helical CT imaging was performed through the abdomen and pelvis. IV contrast: 90 cc Optiray 320. Enteric contrast: No. Reconstructions: Coronal and sagittal. In accordance with CT protocol optimization, one or more of the following dose reduction techniques were utilized for this exam: automated exposure control, adjustment of mA and/or KV based on patient size, or use of iterative reconstructive technique. FINDINGS: Lung Bases: Unremarkable. Liver: Normal. No masses. Gallbladder/Bile Ducts: Rim-calcified gallstones are present. No pericholecystic fluid or inflammatory change. No biliary dilatation. Spleen: Normal. Pancreas: Moderate pancreatic atrophy is present. At the head of the pancreas, there is an ovoid hypodense probably cystic lesion measuring 1.3 x 1.2 cm (series 3 image 32). No edema, peripancreatic fluid, ductal dilatation, or calcification. Adrenal Glands: Normal. Kidneys: There is moderate right hydronephrosis. There is an obstructing stone at the ureteropelvic junction measuring 1.6 x 1.1 cm (series 3 image 47), as seen on recent prior renal ultrasound. No right ureteral dilatation. The left kidney is unremarkable. No left-sided hydronephrosis or calculi. No renal mass bilaterally. Peritoneal Cavity/Bowel: No free fluid, free air or adenopathy. No masses or acute inflammatory process. No dilated loops of small bowel. There is a large stool ball in the rectum measuring approximately 11 x 9 x 10 cm (series 3 image 79, and series 5 image 26). There is an average amount of formed stool in the remainder of the colon. The appendix is not well visualized. No secondary signs of acute appendicitis identified. Pelvic Organs: The uterus is not visualized and may be surgically absent. The bladder and visualized pelvic organs are within normal limits. Vasculature: There is mild atherosclerotic calcification of the abdominal aorta and bilateral common iliac arteries. No aneurysms or other significant abnormality. Bones: No acute osseous abnormality or bone lesion. There are chronic postsurgical changes of the bilateral hips. Other: There is diffuse muscular atrophy. IMPRESSION: 1. There is moderate right hydronephrosis and an obstructing stone at the right ureteropelvic junction, as seen on recent prior ultrasound. 2. No left-sided hydronephrosis or renal collecting system calculi. 3. Ovoid hypodense lesion at the pancreatic head measuring up to 1.3 cm, likely cystic. No worrisome features or high risk stigmata. Findings may represent mucinous neoplasm(s). Significance of these lesions is uncertain but a fraction of these lesions may harbor areas of dysplasia as well as malignancy. There is also possibly a mildly elevated whole gland risk for development of pancreatic carcinoma. Therefore, imaging follow-up is generally recommended. Suggest follow-up with contrast-enhanced pancreatic protocol CT or MRI in 2 years. Management above is based on recommendations outlined in an ACR White Paper: Kun Box et al. Management of Incidental Pancreatic Cysts: A White Paper of the ACR Incidental Findings Committee. Journal of the [employer] 14, 911-923 (2017). 4. [address]ole[address]. No CT evidence of acute cholecystitis. 5. Chronic postsurgical changes of the bilateral hips. RADIA
[2018-12-29] MEDS ORDERED: cefTRIAXone 2 GM in SODIUM CHLORIDE 0.9% MINIBAG 100 ML IV SCH (09:00)
[2018-12-29] MEDS ORDERED: cefTRIAXone 2 GM VIAL IVP SCH (09:00)
[2018-12-29] MEDS ORDERED: MAGNESIUM OXIDE 400 MG TABLET PO SCH (11:54)
[2018-12-29] MEDS ORDERED: diphenhydrAMINE 25 MG CAPSULE PO PRN (13:13)
[2018-12-29] MEDS ORDERED: CALCIUM CARB (OYSTER SHELL) 500 MG TABLET PO PRN (13:13)
--- NOTE | 2018-12-29 13:18 | PROVIDER PROGRESS NOTE ---
Subjective - Prog Note Date Prog Note Date: 12/29/18 Prog Note Time: 13:17 - Subjective Pt reports feeling: Improved Objective - Vital Signs/Intake & Output Vital Signs: Vital Signs x48h Temp Pulse Resp BP Pulse Ox 12/29/18 08:00 36.7 C 105 H 18 139/66 H 96 Intake & Output: Intake & Output 12/26/18 12/27/18 12/28/18 12/29/18 23:59 23:59 23:59 23:59 Intake Total 2250 1491.667 Balance 2250 1491.667 - Lab Results Fish Bones: 12/29/18 05:00 12/29/18 05:00 Other Labs: Lab Results x24hrs 12/29/18 12/29/18 12/29/18 Range/Units 05:00 05:00 05:00 WBC 30.5 H (4.8-10.8) x10^3/uL RBC 3.39 L (4.20-5.40) 10^6/uL Hgb 9.6 L (12.0-16.0) g/dL Hct 29.4 L (37.0-47.0) % MCV 86.7 (81.0-99.0) fL MCH 28.3 (27.0-31.0) pg MCHC 32.7 (32.0-36.0) g/dL RDW 15.2 H (12.0-15.0) % Plt Count 345 (130-450) 10^3/uL MPV 8.8 (7.9-10.8) fL Neut # (Auto) Not Reportable (1.5-6.6) 10^3/uL Lymph # (Auto) Not Reportable (1.5-3.5) 10^3/uL [place] # (Auto) Not Reportable (0.0-1.0) 10^3/uL Eos # (Auto) Not Reportable (0.0-0.7) 10^3/uL Baso # (Auto) Not Reportable (0.0-0.1) 10^3/uL Absolute Nucleated RBC Not Reportable x10^3/uL Total Counted 100 Band Neuts % (Manual) 10 (0 - 10) % Abnorm Lymph % (Manual) 0 % Metamyelocytes % 1 H ( - 0) % Myelocytes % 1 H ( - 0) % Nucleated RBC % Not Reportable /100WBC Neutrophils # (Manual) 26.2 H (1.5-6.6) 10^3/uL Lymphocytes # (Manual) 1.2 L (1.5-3.5) 10^3/uL Monocytes # (Manual) 0.9 (0.0-1.0) 10^3/uL Eosinophils # (Manual) 1.5 H (0-0.7) 10^3/uL Basophils # (Manual) 0.0 (0-0.1) 10^3/uL Differential Comment MANUAL DIFFERENTIAL Manual Slide Review WBC Morphology (NORMAL) Platelet Estimate NORMAL (130-450,000) (NORMAL) Platelet Morphology (NORMAL) RBC Morph Micro Appear NORMAL APPEARANCE (NORMAL) Sodium 135 (135-145) mmol/L Potassium 3.8 (3.5-5.0) mmol/L Chloride 102 (101-111) mmol/L Carbon Dioxide 20 L (21-32) mmol/L Anion Gap 13.0 (6-13) BUN 16 (6-20) mg/dL Creatinine 0.8 (0.4-1.0) mg/dL Estimated GFR (MDRD) 71 L (>89) Glucose 83 (70-100) mg/dL Glycated Hemoglobin (4.6-6.2) % Estim Average Glucose (70-100) Lactic Acid 0.5 (0.5-2.2) mmol/L Calcium 9.1 (8.5-10.3) mg/dL Magnesium 1.5 L (1.7-2.8) mg/dL Total Bilirubin 1.4 H (0.2-1.0) mg/dL AST 14 (10-42) IU/L ALT < 10 L (10-60) IU/L Alkaline Phosphatase 121 (42-121) IU/L Total Protein 5.5 L (6.7-8.2) g/dL Albumin 1.9 L (3.2-5.5) g/dL Globulin 3.6 (2.1-4.2) g/dL Albumin/Globulin Ratio 0.5 L (1.0-2.2) Lipase (22-51) U/L Urine Color Urine Clarity (CLEAR) Urine pH (5.0-7.5) PH Ur Specific [place] (1.002-1.030) Urine Protein (NEGATIVE) mg/dL Urine Glucose (UA) (NEGATIVE) mg/dL Urine Ketones (NEGATIVE) mg/dL Urine Occult Blood (NEGATIVE) Urine Nitrite (NEGATIVE) Urine Bilirubin (NEGATIVE) Urine Urobilinogen (NORMAL) E.U./dL Ur Leukocyte Esterase (NEGATIVE) Urine RBC (0-5) /HPF Urine WBC (0-5) /HPF Ur Squamous Epith Cells (<= Few) Urine Bacteria (None Seen) /HPF Ur Microscopic Review Urine Culture Comments 12/29/18 12/28/18 12/28/18 Range/Units 05:00 13:23 13:10 WBC (4.8-10.8) x10^3/uL RBC (4.20-5.40) 10^6/uL Hgb (12.0-16.0) g/dL Hct (37.0-47.0) % MCV (81.0-99.0) fL MCH (27.0-31.0) pg MCHC (32.0-36.0) g/dL RDW (12.0-15.0) % Plt Count (130-450) 10^3/uL MPV (7.9-10.8) fL Neut # (Auto) (1.5-6.6) 10^3/uL Lymph # (Auto) (1.5-3.5) 10^3/uL [place] # (Auto) (0.0-1.0) 10^3/uL Eos # (Auto) (0.0-0.7) 10^3/uL Baso # (Auto) (0.0-0.1) 10^3/uL Absolute Nucleated RBC x10^3/uL Total Counted Band Neuts % (Manual) (0 - 10) % Abnorm Lymph % (Manual) % Metamyelocytes % ( - 0) % Myelocytes % ( - 0) % Nucleated RBC % /100WBC Neutrophils # (Manual) (1.5-6.6) 10^3/uL Lymphocytes # (Manual) (1.5-3.5) 10^3/uL Monocytes # (Manual) (0.0-1.0) 10^3/uL Eosinophils # (Manual) (0-0.7) 10^3/uL Basophils # (Manual) (0-0.1) 10^3/uL Differential Comment Manual Slide Review WBC Morphology (NORMAL) Platelet Estimate (NORMAL) Platelet Morphology (NORMAL) RBC Morph Micro Appear (NORMAL) Sodium (135-145) mmol/L Potassium (3.5-5.0) mmol/L Chloride (101-111) mmol/L Carbon Dioxide (21-32) mmol/L Anion Gap (6-13) BUN (6-20) mg/dL Creatinine (0.4-1.0) mg/dL Estimated GFR (MDRD) (>89) Glucose (70-100) mg/dL Glycated Hemoglobin 7.8 H (4.6-6.2) % Estim Average Glucose 177 H (70-100) Lactic Acid 1.0 (0.5-2.2) mmol/L Calcium (8.5-10.3) mg/dL Magnesium (1.7-2.8) mg/dL Total Bilirubin (0.2-1.0) mg/dL AST (10-42) IU/L ALT (10-60) IU/L Alkaline Phosphatase (42-121) IU/L Total Protein (6.7-8.2) g/dL Albumin (3.2-5.5) g/dL Globulin (2.1-4.2) g/dL Albumin/Globulin Ratio (1.0-2.2) Lipase (22-51) U/L Urine Color YELLOW Urine Clarity CLOUDY (CLEAR) Urine pH 6.0 (5.0-7.5) PH Ur Specific [place] 1.010 (1.002-1.030) Urine Protein 30 H (NEGATIVE) mg/dL Urine Glucose (UA) NEGATIVE (NEGATIVE) mg/dL Urine Ketones 15 H (NEGATIVE) mg/dL Urine Occult Blood SMALL H (NEGATIVE) Urine Nitrite POSITIVE H (NEGATIVE) Urine Bilirubin NEGATIVE (NEGATIVE) Urine Urobilinogen 1 (NORMAL) (NORMAL) E.U./dL Ur Leukocyte Esterase LARGE H (NEGATIVE) Urine RBC 6-10 H (0-5) /HPF Urine WBC >25 H (0-5) /HPF Ur Squamous Epith Cells FEW Squamous (<= Few) Urine Bacteria Many H (None Seen) /HPF Ur Microscopic Review INDICATED Urine Culture Comments INDICATED 12/28/18 12/28/18 Range/Units 13:00 13:00 WBC 28.2 H (4.8-10.8) x10^3/uL RBC 3.70 L (4.20-5.40) 10^6/uL Hgb 10.3 L (12.0-16.0) g/dL Hct 32.2 L (37.0-47.0) % MCV 87.0 (81.0-99.0) fL MCH 27.8 (27.0-31.0) pg MCHC 32.0 (32.0-36.0) g/dL RDW 15.0 (12.0-15.0) % Plt Count 299 (130-450) 10^3/uL MPV 9.5 (7.9-10.8) fL Neut # (Auto) 24.0 H (1.5-6.6) 10^3/uL Lymph # (Auto) 2.0 (1.5-3.5) 10^3/uL [place] # (Auto) 1.5 H (0.0-1.0) 10^3/uL Eos # (Auto) 0.3 (0.0-0.7) 10^3/uL Baso # (Auto) 0.1 (0.0-0.1) 10^3/uL Absolute Nucleated RBC 0.00 x10^3/uL Total Counted Band Neuts % (Manual) (0 - 10) % Abnorm Lymph % (Manual) % Metamyelocytes % ( - 0) % Myelocytes % ( - 0) % Nucleated RBC % 0.0 /100WBC Neutrophils # (Manual) (1.5-6.6) 10^3/uL Lymphocytes # (Manual) (1.5-3.5) 10^3/uL Monocytes # (Manual) (0.0-1.0) 10^3/uL Eosinophils # (Manual) (0-0.7) 10^3/uL Basophils # (Manual) (0-0.1) 10^3/uL Differential Comment Manual Slide Review Indicated WBC Morphology (NORMAL) Platelet Estimate NORMAL (130-450,000) (NORMAL) Platelet Morphology NORMAL APPEARANCE (NORMAL) RBC Morph Micro Appear NORMAL APPEARANCE (NORMAL) Sodium 136 (135-145) mmol/L Potassium 3.2 L (3.5-5.0) mmol/L Chloride 98 L (101-111) mmol/L Carbon Dioxide 23 (21-32) mmol/L Anion Gap 15.0 H (6-13) BUN 19 (6-20) mg/dL Creatinine 0.7 (0.4-1.0) mg/dL Estimated GFR (MDRD) 83 L (>89) Glucose 141 H (70-100) mg/dL Glycated Hemoglobin (4.6-6.2) % Estim Average Glucose (70-100) Lactic Acid (0.5-2.2) mmol/L Calcium 9.3 (8.5-10.3) mg/dL Magnesium (1.7-2.8) mg/dL Total Bilirubin 1.3 H (0.2-1.0) mg/dL AST 14 (10-42) IU/L ALT < 10 L (10-60) IU/L Alkaline Phosphatase 124 H (42-121) IU/L Total Protein 6.1 L (6.7-8.2) g/dL Albumin 2.2 L (3.2-5.5) g/dL Globulin 3.9 (2.1-4.2) g/dL Albumin/Globulin Ratio 0.6 L (1.0-2.2) Lipase 16 L (22-51) U/L Urine Color Urine Clarity (CLEAR) Urine pH (5.0-7.5) PH Ur Specific [place] (1.002-1.030) Urine Protein (NEGATIVE) mg/dL Urine Glucose (UA) (NEGATIVE) mg/dL Urine Ketones (NEGATIVE) mg/dL Urine Occult Blood (NEGATIVE) Urine Nitrite (NEGATIVE) Urine Bilirubin (NEGATIVE) Urine Urobilinogen (NORMAL) E.U./dL Ur Leukocyte Esterase (NEGATIVE) Urine RBC (0-5) /HPF Urine WBC (0-5) /HPF Ur Squamous Epith Cells (<= Few) Urine Bacteria (None Seen) /HPF Ur Microscopic Review Urine Culture Comments Assessment/Plan - Problem List (2) Urinary incontinence Qualifiers: Urinary Incontinence type: functional incontinence Qualified Code(s): R39.81 - Functional urinary incontinence
--- NOTE | 2018-12-29 13:45 | DISCHARGE SUMMARY ---
"Discharge Summary Admit Date: 12/28/18 Discharge Date: 12/29/18 Discharging Provider: CAM Sanches Primary Care Provider: Kyree Marsh Code Status: Do Not Attempt Resuscitation Condition at Discharge: Stable Discharge Disposition: 02 Transfer Acute Care Hosp Discharge Facility Name: [facility] [place] - DIAGNOSES Admission Diagnoses: Pyelonephritis Urinary incontinence Acute metabolic encephalopathy Chronic pain disorder Hallucinations Diabetes type 2, controlled Bedbound Discharge Diagnoses with Status of Each Condition: Right nephrolithiasis- new on this admission, noted to be 16 mm on both ultrasound and follow up CT Pyelonephritis- new on this admission, with slight bilateral flank discomfort, nausea, vomiting, lethargy, and low abdominal discomfort on exam E. coli UTI- preliminary culture results, final is pending, continues on rocephin Neutrophilic leukoytosis- WBC count up from 28 to 30 today Normocytic anemia- gradual decline, known condition, stable Acute metabolic encephalopathy- now resolved Urinary incontinence- chronic, stable Dehydration- resolving, continues on IV fluids Hypokalemia- replaced with oral agents, now on normal saline with 20 Meq of Kcl IV fluids Chronic pain disorder- chronic, continued on home oxycodone Hallucinations- resolved Bedbound- chronic, stable Diabetes type 2, controlled- A1C was 7.8% on this admission, home Metformin. 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 The patient has been residing at [facility], and recently attended a wedding which required her to sit in a wheelchair for a prolonged period of time. EMS brought the patient in and reported that the patient had not been eating or drinking well for the last week, concerned that she may be dehydrated. Upon arrival to the ED the patient noted that over the last week she has been having troubles with both visual nodule auditory hallucinations despite no history of psychiatric illness or new medications. She also had a fever reported up to 101 F taken via tympani c, a couple of days ago, vomiting after eating spaghetti, dark urine, and foul smelling urine. She is not eating or drinking well, has mucous membranes, poor dental hygiene, complains of extreme lethargy. On my exam, the patient has slight tenderness noted in her bilateral flank region, tenderness in her lower quadrants of her abdomen, but appears to be a good historian and is no longer having hallucinations. Labs show an elevated WBC count of 28.2, H/H 10.3/32.2, neut # 24.0, mono # 1.5, sodium 136, potassium 3.2, chloride 98, creatinine 0.7, BUN 19, GFR 83, glucose 141, lactic acid 1.0, total bilirubin 1.3, alk phos 124, and her urinalysis was grossly abnormal indicating acute infection with +urine protein of 30, urine ketones 15, positive nitrites, large urine leukocyte esterase, and a culture is pending. Her vital signs were stable and she was afebrile with a temp max of 36.7 C. She will be admitted to inpatient, and a retro-peritoneal ultrasound has been ordered for my finding of flank pain worrisome for pyelonephritis. - CONSULTS | PROCEDURES Consultations: Urology via phone- Cory Mueller MD Procedures: none - HOSPITAL COURSE Hospital Course: The patient was admitted to inpatient for further treatment using IV Rocephin of her UTI/pyelonephritis in which her preliminary urine culture results are growing e. coli. Her WBC count has actually increased from 28 to 30 today. Her hypokalemia was treated with oral potassium late yesterday and her IV fluids have been changed to NS with 20Meq of Kcl for today. She has been given oral magnesium. Imaging showed a right kidney stone measuring 16 mm, so a call to Cory Mueller MD- [facility] was made to determine the best treatment for this, who suggested a transfer to a higher level of care to possibly place a stent in her right ureter. The patient was agreeable and in stable condition, so transported via BLS to [facility] [place]. - ALLERGIES Allergies/Adverse Reactions: Allergies Allergy/AdvReac Type Severity Reaction Status Date / Time vancomycin Allergy Unknown Unknown Verified 12/28/18 12:17 paper tape Allergy Itching Uncoded 01/05/14 15:04 - MEDICATIONS Home Medications: Ambulatory Orders Medication Instructions Recorded Confirmed oxyCODONE [Roxicodone] 5 mg PO TID 03/18/15 12/29/18 Amlodipine Besylate 5 mg PO DAILY 10/26/18 12/29/18 Aspirin 81 mg PO DAILY 10/26/18 12/29/18 Atorvastatin [Lipitor] 10 mg PO QPM 10/26/18 12/29/18 metFORMIN [Glucophage] 500 mg PO QDBREAKFAST 10/26/18 12/29/18 Acetaminophen 500 mg PO DAILY 12/29/18 12/29/18 Calcium Carbonate 500 mg PO Q12H PRN 12/29/18 12/29/18 Cholecalciferol (Vitamin D3) 2,000 units PO DAILY 12/29/18 12/29/18 [Vitamin D3] Clotrimazole [Clotrimazole AF] 1 applic TOP BID PRN 12/29/18 12/29/18 Diclofenac Potassium 50 mg PO TID PRN 12/29/18 12/29/18 Duloxetine HCl 30 mg PO DAILY 12/29/18 12/29/18 Folic Acid 0.8 mg PO DAILY 12/29/18 12/29/18 Multivitamin W/Minerals [Theragran 1 tab PO DAILY 12/29/18 12/29/18 M] Nystatin [Nystop] 1 applic TOP DAILY PRN 12/29/18 12/29/18 Sennosides [Senna] 8.6 mg PO BID 12/29/18 12/29/18 diphenhydrAMINE HCl 25 mg PO Q4H PRN 12/29/18 12/29/18 [Diphenhydramine HCl] - PHYSICAL EXAM AT DISCHARGE General Appearance: positive: No acute distress, Alert Eyes Bilateral: positive: PERRL ENT: positive: Pharynx nml, No signs of dehydration Neck: positive: Thyroid nml, No JVD, Trachea midline Respiratory: positive: Chest non-tender, No respiratory distress, Breath sounds nml Cardiovascular: positive: Regular rate & rhythm, No gallop, Systolic murmur Peripheral Pulses: positive: 1+ Abdomen: positive: Nml bowel sounds, Tenderness, Guarding, Hepatomegaly Back: positive: CVA tenderness (R), CVA tenderness (L) Skin: positive: No rash, Warm, Dry Extremities: positive: Non-tender, Full ROM, Pedal edema (chronic), Joint swelling (chronic) Neurologic/Psychiatric: positive: Oriented x3, CN's nml (2-12), Motor nml, Sensation nml Reflexes: Bicep (R): 2+, Bicep (L): 2+ - LABS Result Diagrams: 12/29/18 05:00 12/29/18 05:00 - TIME SPENT Time Spent in Discharge (Minutes): 50"
[2018-12-29] MEDS ORDERED: NS W/20 MEQ KCL 1,000 ML IV SCH (14:00)
--- NOTE | 2018-12-29 15:34 | Discharge Plan ---
Discharge Plan Problem Reviewed?: Yes Disposition: 02 Transfer Acute Care Hosp Condition: Stable Diet: Diabetic Activity Restrictions: Additional Comments (baseline bedbound due to surgical removal of bilateral hip hardware) Shower Restrictions: No Driving Restrictions: Yes Health Concerns: Nephrolithiasis (right) measuring 16 mm per imaging DM type 2- controlled Permanent immobility Urinary incontinence Poor dental hygiene Plan of Treatment: Transfer to a higher level of care for Urology services and a possible stent Care Goals: Prevent UTIs, prevent further hospital stays Assessment: Patient signed a consent for transfer, agreeable No Smoking: If you smoke, Please STOP! Call for help. Follow-up with: Kyree Marsh DO [Primary Care Provider] -
--- NOTE | 2018-12-29 15:48 | ADVANCE CARE PLANNING NOTE ---
Advance Care Planning - Planning Encounter Date: 12/28/18 Time: 16:30 Purpose: Establish goals of care, confirm end of life wishes, confirm documented code status of DNR Parties in Attendance: The patient- Bobbi Qiu, myself- CAM Sanches Decisional Capacity of the Patient: Patient is fully decisional and can state in full detail her chronic and acute medical conditions. The last POLST on file is from 2014 and indicates DNR. - Encounter Subjective/Patient's Story: The patient states that she has lived a full life and if her heart should stop to "just let me be". She states that both her and her have talked about this. She states that she finds much enjoyment out of her young grand-children but understands that she will never walk again or be able to care for them on her own. She also understands that she will never be able to return home due to her bilateral hip hardware removal which has left her permanently bed bound. She answered NO to all 4 rescue effort questions including; chest compressions- NO, shocking- NO, cardiac medications- NO and intubation- NO. She requests to remain a DNR at this time. 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 The patient has been residing at [facility], and recently attended a wedding which required her to sit in a wheelchair for a prolonged period of time. EMS brought the patient in and reported that the patient had not been eating or drinking well for the last week, concerned that she may be dehydrated. Upon arrival to the ED the patient noted that over the last week she has been having troubles with both visual nodule auditory hallucinations despite no history of psychiatric illness or new medications. She also had a fever reported up to 101 F taken via tympanic, a couple of days ago, vomiting after eating spaghetti, dark urine, and foul smelling urine. She is not eating or drinking well, has mucous membranes, poor dental hygiene, complains of extreme lethargy. On my exam, the patient has slight tenderness noted in her bilateral flank region, tenderness in her lower quadrants of her abdomen, but appears to be a good historian and is no longer having hallucinations. Labs show an elevated WBC count of 28.2, H/H 10.3/32.2, neut # 24.0, mono # 1.5, sodium 136, potassium 3.2, chloride 98, creatinine 0.7, BUN 19, GFR 83, glucose 141, lactic acid 1.0, total bilirubin 1.3, alk phos 124, and her urinalysis was grossly abnormal indicating acute infection with +urine protein of 30, urine ketones 15, positive nitrites, large urine leukocyte esterase, and a culture is pending. Her vital signs were stable and she was afebrile with a temp max of 36.7 C. She will be admitted to inpatient, and a retro-peritoneal ultrasound has been ordered for my finding of flank pain worrisome for pyelonephritis. Goals of Care: Treat acute infections, patient wishes to undergo simple non-invasive procedures to extend comfort and potentially prevent further sickness. Plan: Continue to treat acute infection, maintain DNR status Code Status: Do Not Attempt Resuscitation Time spent on advance care plannin
[2018-12-29 15:57] VITALS: BP 128/61
[2018-12-29] MEDS ORDERED: DICLOFENAC SODIUM DR 75 MG TABLET PO PRN (17:00)
[2018-12-29] MEDS ORDERED: ATORVASTATIN 10 MG TABLET PO SCH (21:00)
[2018-12-29] MEDS ORDERED: INSULIN GLARGINE 300 UNIT/3 ML PEN SUBQ SCH (21:00)
[2018-12-29] MEDS ORDERED: SENNA 8.6 MG TABLET PO SCH (21:00)
[2018-12-30] MEDS ORDERED: DULoxetine 30 MG CAPSULE PO SCH (09:00)
[2018-12-30] MEDS ORDERED: FOLIC ACID 1 MG TABLET PO SCH (09:00)
[2018-12-30] MEDS ORDERED: ASPIRIN CHEW 81 MG TABLET PO SCH (09:00)
[2018-12-30] MEDS ORDERED: MULTIVITAMIN W/MINERALS TABLET PO SCH (09:00)
[2018-12-30] MEDS ORDERED: CHOLECALCIFEROL 1,000 UNIT TABLET PO SCH (09:00)
== END 2018-12-29 17:18 | disposition short-term general hospital (02) | DRG 871 ==
LOC: ED 12:10 → MS2 14:41
PROVIDERS: ADMIT Nurse Practitioner; ATTEND Nurse Practitioner
DX: N39.0 Urinary tract infection, site not specified (principal); G93.40 Encephalopathy, unspecified; A41.51 Sepsis due to Escherichia coli [E. coli]; G93.41 Metabolic encephalopathy; N13.6 Pyonephrosis; R44.0 Auditory hallucinations; R44.1 Visual hallucinations; E78.00 Pure hypercholesterolemia, unspecified; M62.3 Immobility syndrome (paraplegic); E86.0 Dehydration; R39.81 Functional urinary incontinence; D72.828 Other elevated white blood cell count; D64.9 Anemia, unspecified; E87.6 Hypokalemia; G89.29 Other chronic pain; Z74.01 Bed confinement status; E11.9 Type 2 diabetes mellitus without complications; I10 Essential (primary) hypertension; E78.5 Hyperlipidemia, unspecified; F32.9 Major depressive disorder, single episode, unspecified; F41.9 Anxiety disorder, unspecified; R35.0 Frequency of micturition; J32.9 Chronic sinusitis, unspecified; M19.90 Unspecified osteoarthritis, unspecified site; M81.0 Age-related osteoporosis without current pathological fracture; Z66 Do not resuscitate; K21.9 Gastro-esophageal reflux disease without esophagitis; R39.15 Urgency of urination; R63.0 Anorexia; H54.7 Unspecified visual loss; K02.9 Dental caries, unspecified; R05 Cough; R06.83 Snoring; R14.0 Abdominal distension (gaseous); K59.00 Constipation, unspecified; R19.7 Diarrhea, unspecified; R11.2 Nausea with vomiting, unspecified; R47.81 Slurred speech; Z68.25 Body mass index [BMI] 25.0-25.9, adult; R41.3 Other amnesia; Z89.622 Acquired absence of left hip joint; Z89.621 Acquired absence of right hip joint; Z79.891 Long term (current) use of opiate analgesic; Z79.82 Long term (current) use of aspirin; Z79.84 Long term (current) use of oral hypoglycemic drugs; Z86.19 Personal history of other infectious and parasitic diseases; Z87.01 Personal history of pneumonia (recurrent); Z85.42 Personal history of malignant neoplasm of other parts of uterus; Z87.440 Personal history of urinary (tract) infections
CPT/HCPCS: 36415; 51701; 74177; 76770; 80053; 81001; 83036; 83605; 83690; 83735; 85025; 87040; 87077; 87086; 87181; 96361; 96365; 99284; 99285; A9270; J7120; Q9967; 81003

== ENCOUNTER 2019-01-24 08:00 | Outpatient (CLI) | payer MEDICARE, OTHER, MEDICAID ==
[2019-01-24 12:32] LABS: BASOPHILS # (AUTO) 0.1 10^3/uL (0.0-0.1); BASOPHILS % (AUTO) 1.4 %; EOSINOPHILS # (AUTO) 0.5 10^3/uL (0.0-0.7); EOSINOPHILS % (AUTO) 4.6 %; HGB - HEMOGLOBIN 11.9 g/dL (12.0-16.0); LYMPHOCYTES # (AUTO) 2.6 10^3/uL (1.5-3.5); MEAN CORPUSCULAR HEMOGLOBIN 27.5 pg (27.0-31.0); MEAN CORPUSCULAR HGB CONC 30.1 g/dL (32.0-36.0); MEAN CORPUSCULAR VOLUME 91.5 fL (81.0-99.0); MEAN PLATELET VOLUME 10.1 fL (7.9-10.8); MONOCYTES # (AUTO) 0.4 10^3/uL (0.0-1.0); MONOCYTES % (AUTO) 4.4 %; NEUTROPHILS # (AUTO) 6.2 10^3/uL (1.5-6.6); NEUTROPHILS % (AUTO) 63.2 %; PLT - PLATELET COUNT 436 10^3/uL (130-450); RED BLOOD COUNT 4.33 10^6/uL (4.20-5.40); RED CELL DISTRIBUTION WIDTH 15.4 % (12.0-15.0); WHITE BLOOD COUNT 9.8 x10^3/uL (4.8-10.8)
[2019-01-24 12:40] LABS: ALBUMIN 3.5 g/dL (3.2-5.5); ALBUMIN/GLOBULIN RATIO 0.7 (1.0-2.2); ALKALINE PHOSPHATASE 122 IU/L (42-121); ALT ALANINE AMINOTRANSFERASE < 10 IU/L (10-60); AST ASPARTATE AMINOTRANSFERASE 15 IU/L (10-42); BILIRUBIN,TOTAL 0.7 mg/dL (0.2-1.0); BUN - BLOOD UREA NITROGEN 22 mg/dL (6-20); CALCIUM 9.9 mg/dL (8.5-10.3); CARBON DIOXIDE - CO2 29 mmol/L (21-32); CHLORIDE 102 mmol/L (101-111); CREATININE 0.5 mg/dL (0.4-1.0); GFR - MDRD 123 (>89); GLUCOSE 146 mg/dL (70-100); SODIUM 138 mmol/L (135-145); TOTAL PROTEIN 8.3 g/dL (6.7-8.2)
[2019-01-24 13:29] LABS: HB2 TOTAL 12.6 g/dL; HEMOGLOBIN A1C 0.65 g/dL; HEMOGLOBIN A1C % 6.9 % (4.6-6.2)
== END 2019-01-24 23:59 | disposition home or self-care (01) ==
LOC: LAB.WCP 08:00
PROVIDERS: ATTEND Physician Assistant
DX: N20.0 Calculus of kidney (principal); E11.9 Type 2 diabetes mellitus without complications
CPT/HCPCS: 36415; 80053; 83036; 85025

== ENCOUNTER 2019-09-18 08:00 | Outpatient (CLI) | payer MEDICARE, OTHER, MEDICAID | END 2019-09-18 23:59 | disposition home or self-care (01) | LOC: LAB.R 08:00 | PROVIDERS: ATTEND Family Medicine | DX: R50.9 Fever, unspecified (principal) | CPT/HCPCS: 81599 ==

== ENCOUNTER 2020-01-22 07:00 | Outpatient (CLI) | payer MEDICARE, OTHER, MEDICAID ==
[2020-01-22 18:24] LABS: BASOPHILS # (AUTO) 0.1 10^3/uL (0.0-0.1); EOSINOPHILS # (AUTO) 0.4 10^3/uL (0.0-0.7); HGB - HEMOGLOBIN 12.2 g/dL (12.0-16.0); LYMPHOCYTES # (AUTO) 3.5 10^3/uL (1.5-3.5); LYMPHOCYTES % (AUTO) 25.6 %; MEAN CORPUSCULAR HEMOGLOBIN 28.5 pg (27.0-31.0); MEAN CORPUSCULAR HGB CONC 29.5 g/dL (32.0-36.0); MEAN CORPUSCULAR VOLUME 96.5 fL (81.0-99.0); MEAN PLATELET VOLUME 9.8 fL (7.9-10.8); MONOCYTES # (AUTO) 0.6 10^3/uL (0.0-1.0); MONOCYTES % (AUTO) 4.6 %; NEUTROPHILS # (AUTO) 8.9 10^3/uL (1.5-6.6); NEUTROPHILS % (AUTO) 65.3 %; PLT - PLATELET COUNT 578 10^3/uL (130-450); RED BLOOD COUNT 4.28 10^6/uL (4.20-5.40); WHITE BLOOD COUNT 13.6 x10^3/uL (4.8-10.8)
[2020-01-22 19:04] LABS: ALBUMIN 3.5 g/dL (3.2-5.5); ALBUMIN/GLOBULIN RATIO 0.9 (1.0-2.2); ALKALINE PHOSPHATASE 112 IU/L (42-121); ALT ALANINE AMINOTRANSFERASE 17 IU/L (10-60); AST ASPARTATE AMINOTRANSFERASE 22 IU/L (10-42); BILIRUBIN,TOTAL 0.5 mg/dL (0.2-1.0); BUN - BLOOD UREA NITROGEN 15 mg/dL (6-20); CALCIUM 9.6 mg/dL (8.5-10.3); CARBON DIOXIDE - CO2 27 mmol/L (21-32); CHLORIDE 104 mmol/L (101-111); CHOL/HDL RATIO 2.5 (<4.4); CHOLESTEROL 123 mg/dL; CREATININE 0.5 mg/dL (0.4-1.0); GLUCOSE 167 mg/dL (70-100); HDL CHOLESTEROL 50 mg/dL; LDL CHOLESTEROL,CALCULATED 50 mg/dL; SODIUM 141 mmol/L (135-145); TOTAL PROTEIN 7.3 g/dL (6.7-8.2); VLDL CHOLESTEROL 23 mg/dL
== END 2020-01-22 23:59 | disposition home or self-care (01) ==
LOC: LAB.WCP 07:00
PROVIDERS: ATTEND Physician Assistant
DX: Z00.00 Encounter for general adult medical examination without abnormal findings (principal); E11.9 Type 2 diabetes mellitus without complications
CPT/HCPCS: 36415; 80053; 80061; 83036; 83721; 84443; 85025

== ENCOUNTER 2021-05-06 10:24 | Outpatient (CLI) | payer MEDICARE, OTHER, MEDICAID ==
[2021-05-06 11:19] LABS: BASOPHILS # (AUTO) 0.2 10^3/uL (0.0-0.1); BASOPHILS % (AUTO) 1.2 %; EOSINOPHILS # (AUTO) 0.5 10^3/uL (0.0-0.7); EOSINOPHILS % (AUTO) 3.3 %; HCT - HEMATOCRIT 38.8 % (37.0-47.0); HGB - HEMOGLOBIN 12.2 g/dL (12.0-16.0); LYMPHOCYTES # (AUTO) 2.6 10^3/uL (1.5-3.5); LYMPHOCYTES % (AUTO) 16.7 %; MEAN CORPUSCULAR HEMOGLOBIN 28.6 pg (27.0-31.0); MEAN CORPUSCULAR HGB CONC 31.4 g/dL (32.0-36.0); MEAN CORPUSCULAR VOLUME 91.1 fL (81.0-99.0); MEAN PLATELET VOLUME 9.1 fL (7.9-10.8); MONOCYTES # (AUTO) 0.7 10^3/uL (0.0-1.0); MONOCYTES % (AUTO) 4.8 %; NEUTROPHILS # (AUTO) 11.4 10^3/uL (1.5-6.6); NEUTROPHILS % (AUTO) 73.4 %; PLT - PLATELET COUNT 504 10^3/uL (130-450); RED BLOOD COUNT 4.26 10^6/uL (4.20-5.40); WHITE BLOOD COUNT 15.5 x10^3/uL (4.8-10.8)
[2021-05-06 11:31] LABS: ALBUMIN 3.6 g/dL (3.2-5.5); ALBUMIN/GLOBULIN RATIO 0.9 (1.0-2.2); BILIRUBIN,TOTAL 0.6 mg/dL (0.2-1.0); CALCIUM 9.9 mg/dL (8.5-10.3); CREATININE 0.7 mg/dL (0.4-1.0); POTASSIUM 4.4 mmol/L (3.5-5.0); TOTAL PROTEIN 7.6 g/dL (6.7-8.2)
[2021-05-06 12:40] LABS: ESTIMATED AVERAGE GLUCOSE 169 mg/dL (70-100); HEMOGLOBIN A1c% 7.5 % (4.27-6.07)
== END 2021-05-06 10:25 | disposition home or self-care (01) ==
LOC: LAB 10:24
PROVIDERS: ATTEND Registered Nurse
DX: M19.90 Unspecified osteoarthritis, unspecified site (principal); E11.9 Type 2 diabetes mellitus without complications
CPT/HCPCS: 36415; 80053; 83036; 85025

== ENCOUNTER 2022-02-04 12:25 | Outpatient (CLI) | payer MEDICARE, OTHER, MEDICAID ==
--- NOTE | 2022-02-05 09:26 | CT Report ---
PROCEDURE: Abdomen/Pelvis WO INDICATIONS: RETAINED URETERAL STENT TECHNIQUE: Noncontrast 5 mm thick sections acquired from the diaphragms to the symphysis. 5 mm coronal and sagi ttal reformats were then performed. For radiation dose reduction, the following was used: automated exposure control, adjustment of mA and/or kV according to patient size. COMPARISON: None. FINDINGS: Image quality: Excellent. ABDOMEN: Lung bases: Lung bases are clear. Heart size is normal. Solid organs: Liver and spleen are normal in size. Gallbladder contains calcified gallstones. No pe richolecystic inflammatory changes. Pancreas is normal in contours. No adrenal nodules. A right ureteral stent is present. The proximal pigtail loop is located within the renal pelvis and t he distal end is seen within the bladder. A small amount of air is seen within the nondependent porti ons of the right renal calyces, likely related to recent instrumentation. There is a 1.6 cm nonobstru cting calculus in the interpolar region of the right kidney with attenuation value of approximately 9 00 Hounsfield units. A few additional indistinct hyperdensities are seen within the right renal pelvi s and calyces and may represent additional calculi versus injected contrast material or milk of calci um.. There is mild right hydronephrosis. No left-sided hydronephrosis or nephrolithiasis. Peritoneum and bowel: Prominent stool is seen within the rectum and. Small and large bowel loops are otherwise unremarkable. Unenhanced bowel loops demonstrate normal wall thickness and caliber. No fr ee fluid or air. Nodes and vessels: No retroperitoneal or mesenteric adenopathy by size criteria. Aorta and inferior vena cava are normal in caliber. No aortic other significant calcifications. Miscellaneous: No ventral hernias. PELVIS: Genitourinary: There is air in the nondependent portion of the bladder, most likely related to recent instrumentation. Miscellaneous: No inguinal hernias or adenopathy. Bones: Chronic irregularity of the hips with chronic destruction of the femoral head and necks bilate rally as well as proximal subluxation of the humeral shafts and remodeling of the acetabulum. A methy lmethacrylate. Spacer is seen within the left acetabular fossa. IMPRESSION: 1.Right ureteral stent is present with mild to moderate hydronephrosis. Air in the right renal calyce s and bladder is most likely related to recent instrumentation. 2.Nonobstructing 16 mm calculus in the interpolar region of the right kidney. Additional faint renal calculi versus injected contrast material or milk of calcium is seen within the renal calyces. 3.Cholelithiasis. Reviewed by: Dylan Lucero MD on 02/05/2022 8:25 AM HAO Approved by: Dylan Lucero MD on 02/05/2022 8:25 AM KYMARIUSZ Station ID: [id number]
== END 2022-02-04 12:26 | disposition home or self-care (01) ==
LOC: DI 12:25
PROVIDERS: ATTEND Urology
DX: E66.01 Morbid (severe) obesity due to excess calories (principal); Z96.0 Presence of urogenital implants; N13.30 Unspecified hydronephrosis; N20.0 Calculus of kidney; K80.20 Calculus of gallbladder without cholecystitis without obstruction

== ENCOUNTER 2022-03-23 13:06 | Outpatient (CLI) | payer MEDICARE, OTHER, MEDICAID | END 2022-03-23 23:59 | disposition critical access hospital (66) | LOC: EMS 13:06 | DX: R39.198 Other difficulties with micturition (principal); R11.2 Nausea with vomiting, unspecified; R00.0 Tachycardia, unspecified | CPT/HCPCS: A0425; A0427 ==

== ENCOUNTER 2022-03-23 13:19 | Inpatient (IN) | payer MEDICARE, OTHER, MEDICAID ==
[2022-03-23] MEDS ORDERED: SODIUM CHLORIDE 0.9% 1,000 ML IV STA ×2 (13:25→15:22)
--- NOTE | 2022-03-23 13:26 | ED Physician Documentation ---
History of Present Illness - Stated complaint Stated Complaint: FEMALE - History obtained from History obtained from: Patient, EMS - Additonal information Additional information: 71-year-old woman who comes in by ambulance from an adult family home. She has mobility issues because she has had bilateral hip infections and has no hips and as such is basically bedbound. She is had about 4 days of urinary frequency and smell and now 2 days of both visual and auditory hallucinations which she describes as mild and nonthreatening. No reported fevers. 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 cysts, Uterine cancer : Incontinence, Chronic bladder infection, Frequency HEENT: Chronic sinusitis Psych: Depression, Anxiety Musculoskeletal: Osteoarthritis, Osteoporosis, Paraplegia (due to bilateral hip joint removal) Derm: None - Past Surgical History Past Surgical History: Yes General: Appendectomy Ortho: Hip replacement, Other /HYDROPULPER OPERATOR: Hysterectomy HEENT: Tonsil/Adenoidectomy - Present Medications Home Medications: Ambulatory Orders Medication Instructions Recorded Confirmed oxyCODONE [Roxicodone] 5 mg PO TID 03/18/15 12/29/18 Amlodipine Besylate 5 mg PO DAILY 10/26/18 12/29/18 Aspirin 81 mg PO DAILY 10/26/18 12/29/18 Atorvastatin [Lipitor] 10 mg PO QPM 10/26/18 12/29/18 metFORMIN [Glucophage] 500 mg PO QDBREAKFAST 10/26/18 12/29/18 Acetaminophen 500 mg PO DAILY 12/29/18 12/29/18 Calcium Carbonate 500 mg PO Q12H PRN 12/29/18 12/29/18 Cholecalciferol (Vitamin D3) 2,000 units PO DAILY 12/29/18 12/29/18 [Vitamin D3] Clotrimazole [Clotrimazole AF] 1 applic TOP BID PRN 12/29/18 12/29/18 Diclofenac Potassium 50 mg PO TID PRN 12/29/18 12/29/18 Duloxetine HCl 30 mg PO DAILY 12/29/18 12/29/18 Folic Acid 0.8 mg PO DAILY 12/29/18 12/29/18 Multivitamin W/Minerals [Theragran 1 tab PO DAILY 12/29/18 12/29/18 M] Nystatin [Nystop] 1 applic TOP DAILY PRN 12/29/18 12/29/18 Sennosides [Senna] 8.6 mg PO BID 12/29/18 12/29/18 diphenhydrAMINE HCl 25 mg PO Q4H PRN 12/29/18 12/29/18 [Diphenhydramine HCl] - Allergies Allergies/Adverse Reactions: Allergies Allergy/AdvReac Type Severity Reaction Status Date / Time vancomycin Allergy Unknown Unknown Verified 03/23/22 13:29 paper tape Allergy Itching Uncoded 03/23/22 13:29 - Social History Does the pt smoke?: No Smoking Status: Never smoker Does the pt drink ETOH?: No Does the pt have substance abuse?: No - Immunizations Immunizations are current?: Yes - POLST Patient has POLST: No POLST Status: DNR PD ED PE NORMAL - Vitals Vital signs reviewed: Yes - General General: Alert and oriented X 3, No acute distress - Neck Neck: Supple, no meningeal sign, No bony TTP - Cardiac Cardiac: No murmur, Other (Rapid and irregularly irregular without murmur) - Respiratory Respiratory: No respiratory distress, Clear bilaterally - Abdomen Abdomen: Soft, Non tender - Back Back: No CVA TTP, No spinal TTP - Derm Derm: Normal color, Warm and dry - Extremities Extremities: Other (Atrophic legs with external rotation at both hips.) - Neuro Neuro: Alert and oriented X 3, Normal speech Results - Vitals Vitals: Vital Signs - 24 hr 03/23/22 03/23/22 03/23/22 13:29 14:10 14:30 Temperature 37.6 C Heart Rate 138 H 125 H 119 H Respiratory 19 18 24 Rate Blood Pressure 176/78 H 113/58 L 107/56 L O2 Saturation 96 99 94 03/23/22 15:00 Temperature Heart Rate 120 H Respiratory 17 Rate Blood Pressure 99/48 L O2 Saturation 95 Oxygen O2 Source Room air - EKG (time done) 1330 Rate: Rate (enter#) (141) Rhythm: Atrial fibrillation QRS: Normal Ischemia: Q waves. No: ST elevation c/w ischemia, ST elevation c/w repol, ST depression - Labs Labs: Laboratory Tests 03/23/22 03/23/22 03/23/22 13:45 13:45 13:45 WBC 15.1 H RBC 4.13 L Hgb 11.8 L Hct 37.7 MCV 91.3 MCH 28.6 MCHC 31.3 L RDW 14.1 Plt Count 505 H MPV 9.0 Neut # (Auto) 14.5 H Lymph # (Auto) 0.3 L Maverick # (Auto) 0.1 Eos # (Auto) 0.0 Baso # (Auto) 0.1 Absolute Nucleated RBC 0.00 Nucleated RBC % 0.0 Sodium 132 L Potassium 4.5 Chloride 99 L Carbon Dioxide 18 L Anion Gap 15.0 H BUN 28 H Creatinine 1.1 H Estimated GFR (MDRD) 49 L Glucose 285 H Lactic Acid 3.6 H* Calcium 9.7 Total Bilirubin 1.1 H AST 27 ALT 24 Alkaline Phosphatase 161 H Total Protein 7.5 Albumin 3.2 Globulin 4.3 H Albumin/Globulin Ratio 0.7 L Urine Color Urine Clarity Urine pH Ur Specific [place] Urine Protein Urine Glucose (UA) Urine Ketones Urine Occult Blood Urine Nitrite Urine Bilirubin Urine Urobilinogen Ur Leukocyte Esterase Urine RBC Urine WBC Ur Squamous Epith Cells Amorphous Sediment Urine Bacteria Urine Culture Comments 03/23/22 03/23/22 15:05 15:09 WBC RBC Hgb Hct MCV MCH MCHC RDW Plt Count MPV Neut # (Auto) Lymph # (Auto) Maverick # (Auto) Eos # (Auto) Baso # (Auto) Absolute Nucleated RBC Nucleated RBC % Sodium Potassium Chloride Carbon Dioxide Anion Gap BUN Creatinine Estimated GFR (MDRD) Glucose Lactic Acid 2.4 H Calcium Total Bilirubin AST ALT Alkaline Phosphatase Total Protein Albumin Globulin Albumin/Globulin Ratio Urine Color YELLOW Urine Clarity CLOUDY Urine pH 6.0 Ur Specific [place] 1.010 Urine Protein TRACE Urine Glucose (UA) NEGATIVE Urine Ketones TRACE Urine Occult Blood LARGE H Urine Nitrite NEGATIVE Urine Bilirubin NEGATIVE Urine Urobilinogen 1 (NORMAL) Ur Leukocyte Esterase MODERATE H Urine RBC TNTC H Urine WBC >25 H Ur Squamous Epith Cells FEW Squamous Amorphous Sediment Moderate Urine Bacteria Moderate H Urine Culture Comments INDICATED PD MEDICAL DECISION MAKING - ED course ED course: 71-year-old woman with type 2 diabetes, A. fib presents with symptoms of UTI with A. fib with RVR/tachycardia. She was given some IV fluids here and labs were checked notable for white count of 15,000, lactic acidosis at 3.6 with some SMILEY with prerenal azotemia and acidemia with a bicarb of 18. After the IV fluids her lactate improved to 2.4. She has a positive urinalysis. She was treated with divided doses of diltiazem for the A. fib with RVR and heart rate trended down from about 1 40-1 20 but her blood pressure trended down to. Unclear if that was from the diltiazem or from potential sepsis and more IV fluids were ordered. Given the above picture I spoke with Dr. Mitchell for admission at 3:30 PM. - Critical Care Time(min): 40 Time Includes: Direct patient care, Review records, Reassess patient, Document care, Coordinate care, Medical consult Data interpretation: Labs, Pulse ox Procedures included in critical care time: Peripheral IV Procedures excluded from critical care time: EKG Departure - Departure Disposition: 66 [facility] DC/Xfer Clinical Impression: Atrial fibrillation with RVR Urinary tract infection Qualifiers: Urinary tract infection type: site unspecified Hematuria presence: without hematuria Qualified Code(s): N39.0 - Urinary tract infection, site not specified Type 2 diabetes mellitus Qualifiers: Diabetes mellitus senior living insulin use: without terminal worker use Diabetes mellitus complication status: with hyperglycemia Qualified Code(s): E11.65 - Type 2 diabetes mellitus with hyperglycemia Sepsis Qualifiers: Sepsis type: sepsis due to unspecified organism Sepsis acute organ dysfunction status: without acute organ dysfunction Qualified Code(s): A41.9 - Sepsis, unspecified organism Condition: Serious
[2022-03-23] MEDS ORDERED: diltiaZEM INJ 5 MG/ML VIAL IVP STA ×2 (13:41→13:59)
[2022-03-23 13:50] LABS: BASOPHILS # (AUTO) 0.1 10^3/uL (0.0-0.1); BASOPHILS % (AUTO) 0.4 %; EOSINOPHILS % (AUTO) 0.3 %; HCT - HEMATOCRIT 37.7 % (37.0-47.0); HGB - HEMOGLOBIN 11.8 g/dL (12.0-16.0); LYMPHOCYTES # (AUTO) 0.3 10^3/uL (1.5-3.5); LYMPHOCYTES % (AUTO) 2.3 %; MEAN CORPUSCULAR HEMOGLOBIN 28.6 pg (27.0-31.0); MEAN CORPUSCULAR HGB CONC 31.3 g/dL (32.0-36.0); MEAN CORPUSCULAR VOLUME 91.3 fL (81.0-99.0); MONOCYTES # (AUTO) 0.1 10^3/uL (0.0-1.0); MONOCYTES % (AUTO) 0.5 %; NEUTROPHILS # (AUTO) 14.5 10^3/uL (1.5-6.6); PLT - PLATELET COUNT 505 10^3/uL (130-450); RED BLOOD COUNT 4.13 10^6/uL (4.20-5.40); RED CELL DISTRIBUTION WIDTH 14.1 % (12.0-15.0); WHITE BLOOD COUNT 15.1 x10^3/uL (4.8-10.8)
[2022-03-23 14:06] LABS: ALBUMIN 3.2 g/dL (3.2-5.5); ALBUMIN/GLOBULIN RATIO 0.7 (1.0-2.2); BILIRUBIN,TOTAL 1.1 mg/dL (0.2-1.0); CALCIUM 9.7 mg/dL (8.5-10.3); CREATININE 1.1 mg/dL (0.4-1.0); POTASSIUM 4.5 mmol/L (3.5-5.0); TOTAL PROTEIN 7.5 g/dL (6.7-8.2)
[2022-03-23 14:19] LABS: LACTIC ACID, VENOUS 3.6 mmol/L (0.5-2.2)
[2022-03-23 15:17] LABS: BILIRUBIN,URINE NEGATIVE (NEGATIVE); GLUCOSE, URINE (UA) NEGATIVE (NEGATIVE); KETONES,URINE (UA) TRACE mg/dL (NEGATIVE); LEUKOCYTE ESTERASE, URINE MODERATE (NEGATIVE); NITRITE,URINE NEGATIVE (NEGATIVE); OCCULT BLOOD,URINE LARGE (NEGATIVE); PROTEIN,URINE TRACE mg/dL (NEGATIVE); UROBILINOGEN,URINE 1 (NORMAL) E.U./dL (NORMAL)
[2022-03-23 15:18] LABS: CLARITY,URINE CLOUDY (CLEAR)
[2022-03-23 15:22] LABS: LACTIC ACID, VENOUS 2.4 mmol/L (0.5-2.2)
[2022-03-23] MEDS ORDERED: cefTRIAXone 1 GM in SODIUM CHLORIDE 0.9% MINIBAG 100 ML IV STA (15:22)
[2022-03-23 15:26] LABS: AMORPHOUS SEDIMENT,UR Moderate /LPF; BACTERIA,URINE Moderate /HPF (None Seen); RBC,URINE TNTC /HPF (0-5); SQUAMOUS EPITHELIAL CELL,UR FEW Squamous (<= Few); WBC,URINE >25 /HPF (0-5)
[2022-03-23] MEDS ORDERED: ONDANSETRON 4 MG/2 ML VIAL IVP PRN (15:31)
[2022-03-23] MEDS ORDERED: ACETAMINOPHEN 325 MG TABLET PO PRN (15:31)
[2022-03-23] MEDS ORDERED: ONDANSETRON ODT 4 MG TABLET TL PRN (15:31)
[2022-03-23] MEDS ORDERED: oxyCODONE 5 MG TABLET PO PRN (15:31)
[2022-03-23] MEDS ORDERED: SODIUM CHLORIDE FLUSH 0.9% 10 ML SYRINGE IVP PRN (15:31)
[2022-03-23] MEDS ORDERED: LACTATED RINGERS 2,993.7 ML IV STA (15:49)
--- NOTE | 2022-03-23 16:41 | HISTORY & PHYSICAL EXAMINATION ---
Chief Complaint - Chief Complaint Chief Complaint: foul smelling dark urine History of Present Illness - Admitted From Admitted From:: Adult family home - History Obtained From Records Reviewed: [facility] History obtained from: Dr. Atkinson and [facility] Exam Limitations: None - History of Present Illness HPI Comment/Other: This unfortunate 71-year-old female has inability to ambulate due to what may be a [place] operation. She has had several hip infections and there was excision of cement and prosthesis without attempt at new hip replacement. She has become basically bedbound and now lives in an adult home. She was brought in by ambulance to our emergency room because she was developing dark cloudy, foul-smelling urine. She has a history of atrial fibrillation. In addition to the urine changes, she describes 2 days of visual and auditory, nonthreatening, hallucinations. She denied fever, rigors. She denied abdominal pain. No cough, chest congestion, chest pain. Case discussed with Dr. Atkinson and in the emergency room temperature was 37.6. Heart rate was 138. Blood pressure 176/78. Respirations 19 and 96% in room air. She was alert and oriented x3. She had a fast irregularly irregular heart rate without a murmur. Abdomen was nontender. Normal bowel sounds. She had atrophic legs with external rotation of both hips. She was given diltiazem 10 mg followed by diltiazem 20 mg to slow down her heart rate. It did slow it down 220 but blood pressure was 99/48 with that. O2 sat was now 95%. She also received 2 L of wide-open normal saline. Electrolytes showed BUN of 28, creatinine of 1.1. Baseline creatinine is 0.7 or 0.5 for her. Lactic acid was 3.6 and with IV fluids and a dose of antibiotics her lactic acid 1-2.4. Urinalysis had a large amount of occult blood, moderate leukocyte Estrace, too numerous to count red cells, greater than 25 white cells. A few squamous epithelial cells, moderate bacteria. Culture was indicated and will be sent. White cell count is 15.1. She appears to have a chronic elevation for most of the last 7 years. The highest she has been is 30.5 thousand in December 2018. Urine culture from August 2018 with Pseudomonas. E. coli grew out in September 2018, December 2018, and the E. coli was resistant to ampicillin, cephalothin, ciprofloxacin, Levaquin, piperacillin. At that time it was sensitive to ceftriaxone, cefuroxime and ertapenem. She did receive ceftriaxone in the emergency room. 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 ), Uterine cancer, Other (. posstmenopausal bleeding 2019. 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 Social History Notes: The patient is to Marcell, they have 3 grown children, and 2 grand-children. 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 She is bed bound. She denies alcoholism, illicit drug use or tobacco use. She wishes to be a DNR. - Substance History Use: Uses substance without health or social issues: NONE - POLST Patient has POLST: No POLST Status: DNR (POA is son Axel Qiu and secondary contact, daughter Maddy) Meds/Allgy - Home Medications Home Medications: Ambulatory Orders Medication Instructions Recorded Confirmed oxyCODONE [Roxicodone] 5 mg PO TID 03/18/15 12/29/18 Amlodipine Besylate 5 mg PO DAILY 10/26/18 12/29/18 Aspirin 81 mg PO DAILY 10/26/18 12/29/18 Atorvastatin [Lipitor] 10 mg PO QPM 10/26/18 12/29/18 metFORMIN [Glucophage] 500 mg PO QDBREAKFAST 10/26/18 12/29/18 Acetaminophen 500 mg PO DAILY 12/29/18 12/29/18 Calcium Carbonate 500 mg PO Q12H PRN 12/29/18 12/29/18 Cholecalciferol (Vitamin D3) 2,000 units PO DAILY 12/29/18 12/29/18 [Vitamin D3] Clotrimazole [Clotrimazole AF] 1 applic TOP BID PRN 12/29/18 12/29/18 Diclofenac Potassium 50 mg PO TID PRN 12/29/18 12/29/18 Duloxetine HCl 30 mg PO DAILY 12/29/18 12/29/18 Folic Acid 0.8 mg PO DAILY 12/29/18 12/29/18 Multivitamin W/Minerals [Theragran 1 tab PO DAILY 12/29/18 12/29/18 M] Nystatin [Nystop] 1 applic TOP DAILY PRN 12/29/18 12/29/18 Sennosides [Senna] 8.6 mg PO BID 12/29/18 12/29/18 diphenhydrAMINE HCl 25 mg PO Q4H PRN 12/29/18 12/29/18 [Diphenhydramine HCl] - Allergies Allergies/Adverse Reactions: Allergies Allergy/AdvReac Type Severity Reaction Status Date / Time vancomycin Allergy Unknown Unknown Verified 03/23/22 13:29 adhesive tape Allergy Itching Verified 03/23/22 15:47 Prior Level of Functionality: She is bedbound. Able to feed herself. However completely dependent with her regards to bathing, dressing Exam - Vital Signs Reviewed Vital Signs: Yes Vital Signs: Vital Signs x48h Temp Pulse Resp BP Pulse Ox 03/23/22 16:00 113 H 28 H 100 03/23/22 15:30 118 H 18 96 03/23/22 15:00 120 H 17 99/48 L 95 03/23/22 14:30 119 H 24 107/56 L 94 03/23/22 14:10 125 H 18 113/58 L 99 03/23/22 13:29 37.6 C 138 H 19 176/78 H 96 Sepsis Event Note (H) - Evaluation Current Stage of Sepsis: Sepsis Possible source of Sepsis: positive: Genitourinary - Sepsis Criteria Sepsis Criteria: Recorded Heart Rate greater than 90 bpm, WBC count greater than 12,000 or less than 4000, Metabolic: lactate > 2 mmol/L Conclusion/Plan - Problem List (1) Sepsis Conclusion/Plan: She meets criteria for sepsis on the basis of her heart rate, white cell count, lactic acid. She is hypotensive but I think that is more of a fact of the diltiazem she received then true septic hypotension. She was not hypotensive when she was initially evaluated in the ER. Source of infection appears to be her urine. We will treat that. We will give her another liter or 2 of fluids. Lactic acid is already on the way back down. We will recheck lactic acid again tomorrow morning.I did try and speak to her next of kin as listed on her facesheet. It is Maddy Qiu who is a child of hers. The phone number listed is the same phone number for this patient. So I am not clear about which retirement she lives and that her daughters phone number in her phone number are the same. There is no answer at the phone number of [phone]. I have left a message for her to please call me at the hospital's phone number. Qualifiers: Sepsis type: sepsis due to unspecified organism Sepsis acute organ dysfunction status: without acute organ dysfunction Qualified Code(s): A41.9 - Sepsis, unspecified organism (2) Urinary tract infection Conclusion/Plan: Recurrent UTI. The last 3 have grown out E. coli. Sensitivities taken into account and we have started her on Rocephin. We will adjust antibiotics on the basis of sensitivities. Qualifiers: Urinary tract infection type: site unspecified Hematuria presence: without hematuria Qualified Code(s): N39.0 - Urinary tract infection, site not specified (3) Type 2 diabetes mellitus Conclusion/Plan: In the outpatient setting she is on metformin. This could be the cause of her lactic acidosis. She is not on any other medication. Plan: Stop metformin For choice carb diet Sliding scale insulin Check A1c Qualifiers: Diabetes mellitus manager long term care insulin use: without manager long term care use Diabetes mellitus complication status: with hyperglycemia Qualified Code(s): E11.65 - Type 2 diabetes mellitus with hyperglycemia (4) HTN (hypertension), benign Conclusion/Plan: When she presented to the emergency room via ambulance she was hypertensive. She then received diltiazem 2 doses and heart rate has been minimally slowed down but she has become hypotensive. I will be giving her another bolus of fluids. And I will not resume her home medication of Norvasc until blood pressure up and Norvasc verified by pharmacy. (5) Bedbound Conclusion/Plan: She had bilateral hip arthroplasties and developed osteomyelitis. Total hip arthroplasties were done in 1998 and 1999 (right and left). Following a dental procedure in 2010 she developed a seeding of her left total hip arthroplasty requiring hip to be removed and spacer placed at the [facility]. She never had reimplantation of that hip with controversy surrounding whether she should or should not. She was in a wheelchair ambulator, transferring with a walker to a commode and having caregivers come in 4 hours a day by 2014. In December 2014 she noted swelling and pain of her right thigh region to the point where she could not stand to transfer out of a car. Ultrasound was ordered and a large abscess fluid collection was detected. She was found to have abscess of her right thigh, origin unclear as to why it happened. She had a loosening uncemented right hip arthroplasty that was probably involved with infection. She ended up being taken to the operating room twice, emergently. An abscess involved the acetabular femoral component and needed to be removed. She was transferred to [facility] March 23. She only stayed there 5 days and return to us on March 26. Other problems during her stay included postmenopausal bleeding. She stayed with us for prolonged IV antibiotic therapy. She developed a drug rash. Pain was difficult to control. She required steroids. We attempted transfer back to [facility] at [facility] but they had no beds. We contacted [facility] and they finally excepted the patient and she returned to them. From that hospitalization she was transferred to an adult retirement. We did not see her again until December 2018 when we admitted her for dehydration, hallucinations due to pyelonephritis. She was discharged December 29, 2018 has not been seen in our facility until today. - Lab Results Lab results reviewed: Yes Fish Bones: 03/23/22 13:45 03/23/22 13:45
[2022-03-23 16:51] LABS: B. PARAPERTUSSIS- RESP PCR PAN NOT DETECTED; B. PERTUSSIS- RESP PCR PANEL NOT DETECTED; C. PNEUMONIAE- RESP PCR PANEL NOT DETECTED; CORONAVIRUS 229E-RESP PCR NOT DETECTED; CORONAVIRUS HKU1-RESP PCR NOT DETECTED; CORONAVIRUS NL63-RESP PCR NOT DETECTED; CORONAVIRUS OC43-RESP PCR NOT DETECTED; HUMAN METAPNEUMOVIRUS NOT DETECTED; INFLUENZA A- RESP PCR PANEL NOT DETECTED; INFLUENZA B - RESP PCR PANEL NOT DETECTED; M. PNEUMONIAE- RESP PCR PANEL NOT DETECTED; PARAINFLUENZA VIRUS 1 NOT DETECTED; PARAINFLUENZA VIRUS 2 NOT DETECTED; PARAINFLUENZA VIRUS 3 NOT DETECTED; PARAINFLUENZA VIRUS 4 NOT DETECTED; RHINOVIRUS/ENTEROVIRUS NOT DETECTED; RSV- RESP PCR PANEL NOT DETECTED; SARS-CoV-2 -RESP PCR PANEL NOT DETECTED
[2022-03-23] MEDS: SODIUM CHLORIDE FLUSH 0.9% 10 ML SYRINGE IVP SCH (18:24)
[2022-03-23 18:44] LABS: LACTIC ACID, VENOUS 2.4 mmol/L (0.5-2.2)
[2022-03-23] MEDS: SODIUM CHLORIDE 0.9% 1,000 ML IV SCH (19:50)
[2022-03-23] MEDS: DIGOXIN 500 MCG/2 ML AMP IVP SCH (20:42)
[2022-03-23] MEDS ORDERED: MIN OIL/DIMETHICON/COCONUT OIL 92 GM TUBE TOP PRN (20:50)
[2022-03-23] MEDS: INSULIN LISPRO 300 UNIT/3 ML PEN SUBQ SCH (20:53)
[2022-03-23 21:55] LABS: LACTIC ACID, VENOUS 2.7 mmol/L (0.5-2.2)
[2022-03-24] MEDS: SODIUM CHLORIDE FLUSH 0.9% 10 ML SYRINGE IVP SCH ×3 (00:07→17:41)
[2022-03-24] MEDS: DIGOXIN 500 MCG/2 ML AMP IVP SCH ×3 (02:15→14:18)
[2022-03-24 04:55] LABS: BASOPHILS % (AUTO) 0.4 %; EOSINOPHILS % (AUTO) 0.4 %; HCT - HEMATOCRIT 31.5 % (37.0-47.0); HGB - HEMOGLOBIN 9.9 g/dL (12.0-16.0); LYMPHOCYTES % (AUTO) 5.5 %; MEAN CORPUSCULAR HEMOGLOBIN 28.7 pg (27.0-31.0); MEAN CORPUSCULAR HGB CONC 31.4 g/dL (32.0-36.0); MEAN CORPUSCULAR VOLUME 91.3 fL (81.0-99.0); MEAN PLATELET VOLUME 8.9 fL (7.9-10.8); MONOCYTES % (AUTO) 6.8 %; NEUTROPHILS % (AUTO) 86.1 %; PLT - PLATELET COUNT 448 10^3/uL (130-450); RED BLOOD COUNT 3.45 10^6/uL (4.20-5.40); RED CELL DISTRIBUTION WIDTH 14.2 % (12.0-15.0); WHITE BLOOD COUNT 23.6 x10^3/uL (4.8-10.8)
[2022-03-24 05:00] LABS: ABNORMAL LYMPHS % (MANUAL) 0 %
[2022-03-24 05:12] LABS: BAND NEUTROPHILS % (MANUAL) 2 %; DIFFERENTIAL COMMENT MANUAL DIFFERENTIAL; LYMPHOCYTES # (MANUAL) 1.7 10^3/uL (1.5-3.5); LYMPHOCYTES % (MANUAL) 7 %; MAGNESIUM 1.6 mg/dL (1.7-2.8); MONOCYTES # (MANUAL) 1.4 10^3/uL (0.0-1.0); NEUTROPHILS # (MANUAL) 20.5 10^3/uL (1.5-6.6); PHOSPHORUS 2.2 mg/dL (2.5-4.6); PLATELET ESTIMATE, MANUAL NORMAL (130-450,000) (NORMAL); PLATELET MORPHOLOGY NORMAL APPEARANCE (NORMAL); RBC MORPHOLOGY (MULTIPLE) NORMAL APPEARANCE (NORMAL); WBC MORPHOLOGY (MULTIPLE) NORMAL APPEARANCE (NORMAL)
[2022-03-24] MEDS: SODIUM CHLORIDE 0.9% 1,000 ML IV SCH ×2 (05:22→21:43)
[2022-03-24] MEDS ORDERED: MAGNESIUM SULFATE 2 GRAM 2 GM/50 ML BAG IV ONE (07:37)
[2022-03-24 07:55] LABS: CALCIUM 8.6 mg/dL (8.5-10.3); CREATININE 0.8 mg/dL (0.4-1.0)
[2022-03-24] MEDS: INSULIN LISPRO 300 UNIT/3 ML PEN SUBQ SCH ×4 (08:18→21:15)
[2022-03-24] MEDS: ENOXAPARIN 40 MG/0.4 ML SYRINGE SUBQ SCH (08:20)
[2022-03-24] MEDS: METOPROLOL TARTRATE 25 MG TABLET PO SCH ×2 (08:23→21:15)
[2022-03-24] MEDS: cefTRIAXone 1 GM in SODIUM CHLORIDE 0.9% MINIBAG 100 ML IV SCH (09:16)
[2022-03-24] MEDS: POTASSIUM PHOSPHATE 15 MMOL in SODIUM CHLORIDE 0.9% 250 ML IV SCH ×2 (10:00→14:13)
--- NOTE | 2022-03-24 11:27 | PHARMACY PROGRESS NOTE ---
- Best Possible Medication History Admit Date and Time: 03/23/22 1531 Processed by: Pharmacy Medication History completed: Yes Secondary Source(s): Facility MAR as ONLY source As the person ultimately responsible for medication therapy, providers are able to order a medication from an existing home medication list in [facility] via the "Reconcile Routine" prior to Confirmation of that medication by support analyst. Such practice is discouraged except when the physician, in their clinical judgment, deems that a medical need exists for a medication without regard to previous use.
[2022-03-24 11:50] LABS: ESTIMATED AVERAGE GLUCOSE 157 mg/dL (70-100); HEMOGLOBIN A1c% 7.1 % (4.27-6.07)
--- NOTE | 2022-03-24 13:36 | PROVIDER PROGRESS NOTE ---
Subjective - Prog Note Date Prog Note Date: 03/24/22 Prog Note Time: 13:31 - Subjective Subjective: She is feeling better after the Ceftriaxone and is not experiencing any new discomfort. Current Medications - Current Medications Current Medications: Active Medications Acetaminophen (Acetaminophen 325 Mg Tablet) 650 mg PO Q4HR PRN PRN Reason: Pain 1 to 4, or Fever Digoxin (Digoxin 500 Mcg/2 Ml Amp) 250 mcg IVP Q6H [facility] Stop: 03/24/22 14:01 Last Admin: 03/24/22 08:08 Dose: 250 mcg Enoxaparin Sodium (Enoxaparin 40 Mg/0.4 Ml Syringe) 40 mg SUBQ DAILY [facility] Last Admin: 03/24/22 08:20 Dose: 40 mg Sodium Chloride (Normal Saline 0.9%) 1,000 mls @ 100 mls/hr IV .Q10H [facility] Last Infusion: 03/24/22 10:05 Dose: 37 mls/hr Ceftriaxone Sodium 1 gm/ (Sodium Chloride) 100 mls @ 200 mls/hr IV DAILY [facility] Stop: 03/30/22 09:29 Last Infusion: 03/24/22 10:00 Dose: Infused Potassium Phosphate 15 mmol/ (Sodium Chloride) 255 mls @ 63.75 mls/hr IV Q4H [facility] Stop: 03/24/22 15:59 Last Admin: 03/24/22 10:00 Dose: 63.75 mls/hr Insulin Human Lispro (Insulin Lispro 300 Unit/3 Ml Pen) 1 - 9 unit SUBQ 0800,1200,1700,2100 [facility]; Protocol Last Admin: 03/24/22 12:44 Dose: Not Given Metoprolol Tartrate (Metoprolol Tartrate 25 Mg Tablet) 25 mg PO BID [facility] Last Admin: 03/24/22 08:23 Dose: 25 mg Mineral Oil (Min Oil/Dimethicon/Coconut Oil 92 Gm Tube) 1 applic TOP PRN PRN PRN Reason: Skin Care Ondansetron HCl (Ondansetron Odt 4 Mg Tablet) 4 mg TL Q6HR PRN PRN Reason: Nausea / Vomiting Ondansetron HCl (Ondansetron 4 Mg/2 Ml Vial) 4 mg IVP Q6HR PRN PRN Reason: Nausea / Vomiting Oxycodone HCl (Oxycodone 5 Mg Tablet) 5 mg PO Q4HR PRN PRN Reason: Pain 5 to 7 Sodium Chloride (Sodium Chloride Flush 0.9% 10 Ml Syringe) 10 ml IVP PRN PRN PRN Reason: NEEDED PER PROVIDER ORDERS Last Admin: 03/24/22 10:07 Dose: 20 ml Sodium Chloride (Sodium Chloride Flush 0.9% 10 Ml Syringe) 10 ml IVP 0100,0900,1700 [facility] Last Admin: 03/24/22 08:23 Dose: 10 ml oxyCODONE [Roxicodone] 5 - 10 mg PO TID PRN 03/18/15 Amlodipine Besylate 5 mg PO QPM 10/26/18 Aspirin 81 mg PO DAILY 10/26/18 Atorvastatin [Lipitor] 10 mg PO QPM 10/26/18 Acetaminophen 500 mg PO DAILY PRN 12/29/18 Calcium Carbonate 500 mg PO Q12H PRN 12/29/18 Cholecalciferol (Vitamin D3) [Vitamin D3] 2,000 units PO DAILY 12/29/18 Clotrimazole [Clotrimazole AF] 1 applic TOP BID PRN 12/29/18 Diclofenac Potassium 50 mg PO TID PRN 12/29/18 Folic Acid 0.8 mg PO DAILY 12/29/18 Multivitamin W/Minerals [Theragran M] 1 tab PO DAILY 12/29/18 Nystatin [Nystop] 1 applic TOP DAILY PRN 12/29/18 Sennosides [Senna] 8.6 mg PO BID PRN 12/29/18 diphenhydrAMINE HCl [Diphenhydramine HCl] 25 mg PO Q4H PRN 12/29/18 Cetirizine [ZyrTEC] 10 mg PO DAILY 03/24/22 Duloxetine HCl [Cymbalta] 60 mg PO QPM 03/24/22 Empagliflozin [Jardiance] 10 mg PO DAILY 03/24/22 Gabapentin [Neurontin] 100 mg PO QPM 03/24/22 Loperamide HCl [Imodium A-D] 2 mg PO PRN PRN 03/24/22 Metformin HCl 1,000 mg PO BID 03/24/22 Psyllium Husk (with Sugar) [Fiber Powder] 2 tsp PO DAILY 03/24/22 guaiFENesin [Tussin] 5 ml PO Q4H PRN 03/24/22 polyethylene glycoL 3350 [Miralax] 17 gm PO DAILY PRN 03/24/22 Objective - Vital Signs/Intake & Output Reviewed Vital Signs: Yes Vital Signs: Vital Signs x48h Temp Pulse Pulse Resp BP BP Pulse Ox 03/24/22 08:26 37.1 C 113 H 18 135/83 H 94 03/24/22 08:23 115/56 L 03/24/22 08:08 114 H Intake & Output: Intake & Output 03/21/22 03/22/22 03/23/22 03/24/22 23:59 23:59 23:59 23:59 Intake Total 5193.700 1875.499 Output Total 300 950 Balance 4893.700 925.499 - Objective General Appearance: negative: No acute distress, Alert Eyes Bilateral: negative: Normal inspection Neck: negative: Nml inspection, Stiff neck Respiratory: negative: No respiratory distress, Breath sounds nml Cardiovascular: positive: Irregularly irregular (Heart rate was rapid and irregularly irregular) Abdomen: negative: Non-tender, No distention Skin: negative: Color nml, No rash, Warm, Dry Extremities: positive: Other (Bilateral legs are extended and externally rotated) Neurologic/Psychiatric: negative: Mood/affect nml - Lab Results Fish Bones: 03/24/22 04:47 03/24/22 04:47 Other Labs: Lab Results x24hrs 03/24/22 03/24/22 03/24/22 Range/Units 04:47 04:47 04:47 WBC (4.8-10.8) x10^3/uL RBC (4.20-5.40) 10^6/uL Hgb (12.0-16.0) g/dL Hct (37.0-47.0) % MCV (81.0-99.0) fL MCH (27.0-31.0) pg MCHC (32.0-36.0) g/dL RDW (12.0-15.0) % Plt Count (130-450) 10^3/uL MPV (7.9-10.8) fL Neut # (Auto) (1.5-6.6) 10^3/uL Lymph # (Auto) (1.5-3.5) 10^3/uL [place] # (Auto) (0.0-1.0) 10^3/uL Eos # (Auto) (0.0-0.7) 10^3/uL Baso # (Auto) (0.0-0.1) 10^3/uL Absolute Nucleated RBC x10^3/uL Total Counted Band Neuts % (Manual) (0 - 10) % Abnorm Lymph % (Manual) % Nucleated RBC % /100WBC Neutrophils # (Manual) (1.5-6.6) 10^3/uL Lymphocytes # (Manual) (1.5-3.5) 10^3/uL Monocytes # (Manual) (0.0-1.0) 10^3/uL Eosinophils # (Manual) (0-0.7) 10^3/uL Basophils # (Manual) (0-0.1) 10^3/uL Differential Comment WBC Morphology (NORMAL) Platelet Estimate (NORMAL) Platelet Morphology (NORMAL) RBC Morph Micro Appear (NORMAL) Sodium 138 (135-145) mmol/L Potassium 4.0 (3.5-5.0) mmol/L Chloride 108 (101-111) mmol/L Carbon Dioxide 20 L (21-32) mmol/L Anion Gap 10.0 (6-13) BUN 21 H (6-20) mg/dL Creatinine 0.8 (0.4-1.0) mg/dL Estimated GFR (MDRD) 71 L (>89) Glucose 131 H (70-100) mg/dL Estimat Average Glucose 157 H (70-100) mg/dL Hemoglobin A1c % 7.1 H (4.27-6.07) % Lactic Acid 0.8 (0.5-2.2) mmol/L Calcium 8.6 (8.5-10.3) mg/dL Phosphorus (2.5-4.6) mg/dL Magnesium (1.7-2.8) mg/dL Total Bilirubin (0.2-1.0) mg/dL AST (10-42) IU/L ALT (10-60) IU/L Alkaline Phosphatase (42-121) IU/L Total Protein (6.7-8.2) g/dL Albumin (3.2-5.5) g/dL Globulin (2.1-4.2) g/dL Albumin/Globulin Ratio (1.0-2.2) Urine Color Urine Clarity (CLEAR) Urine pH (5.0-7.5) PH Ur Specific [place] (1.002-1.030) Urine Protein (NEGATIVE) mg/dL Urine Glucose (UA) (NEGATIVE) mg/dL Urine Ketones (NEGATIVE) mg/dL Urine Occult Blood (NEGATIVE) Urine Nitrite (NEGATIVE) Urine Bilirubin (NEGATIVE) Urine Urobilinogen (NORMAL) E.U./dL Ur Leukocyte Esterase (NEGATIVE) Urine RBC (0-5) /HPF Urine WBC (0-5) /HPF Ur Squamous Epith Cells (<= Few) Amorphous Sediment /LPF Urine Bacteria (None Seen) /HPF Urine Culture Comments Nasal Adenovirus (PCR) Nasal B. parapertussis DNA (PCR) Nasal Coronavir 229E PCR Nasal Coronavir HKU1 PCR Nasal Coronavir NL63 PCR Nasal Coronavir OC43 PCR Nasal Enterovir/Rhinovir PCR Nasal Influenza B PCR Nasal Influenza A PCR Nasal Parainfluen 1 PCR Nasal Parainfluen 2 PCR Nasal Parainfluen 3 PCR Nasal Parainfluen 4 PCR Nasal RSV (PCR) Nasal B.pertussis DNA PCR Nasal C.pneumoniae (PCR) Jeancarlos Human Metapneumo PCR Nasal M.pneumoniae (PCR) Nasal SARS-CoV-2 (PCR) 03/24/22 03/24/22 03/24/22 Range/Units 04:47 04:47 00:54 WBC 23.6 H (4.8-10.8) x10^3/uL RBC 3.45 L (4.20-5.40) 10^6/uL Hgb 9.9 L (12.0-16.0) g/dL Hct 31.5 L (37.0-47.0) % MCV 91.3 (81.0-99.0) fL MCH 28.7 (27.0-31.0) pg MCHC 31.4 L (32.0-36.0) g/dL RDW 14.2 (12.0-15.0) % Plt Count 448 (130-450) 10^3/uL MPV 8.9 (7.9-10.8) fL Neut # (Auto) Not Reportable (1.5-6.6) 10^3/uL Lymph # (Auto) Not Reportable (1.5-3.5) 10^3/uL [place] # (Auto) Not Reportable (0.0-1.0) 10^3/uL Eos # (Auto) Not Reportable (0.0-0.7) 10^3/uL Baso # (Auto) Not Reportable (0.0-0.1) 10^3/uL Absolute Nucleated RBC Not Reportable x10^3/uL Total Counted 100 Band Neuts % (Manual) 2 (0 - 10) % Abnorm Lymph % (Manual) 0 % Nucleated RBC % Not Reportable /100WBC Neutrophils # (Manual) 20.5 H (1.5-6.6) 10^3/uL Lymphocytes # (Manual) 1.7 (1.5-3.5) 10^3/uL Monocytes # (Manual) 1.4 H (0.0-1.0) 10^3/uL Eosinophils # (Manual) 0.0 (0-0.7) 10^3/uL Basophils # (Manual) 0.0 (0-0.1) 10^3/uL Differential Comment MANUAL DIFFERENTIAL WBC Morphology NORMAL APPEARANCE (NORMAL) Platelet Estimate NORMAL (130-450,000) (NORMAL) Platelet Morphology NORMAL APPEARANCE (NORMAL) RBC Morph Micro Appear NORMAL APPEARANCE (NORMAL) Sodium (135-145) mmol/L Potassium (3.5-5.0) mmol/L Chloride (101-111) mmol/L Carbon Dioxide (21-32) mmol/L Anion Gap (6-13) BUN (6-20) mg/dL Creatinine (0.4-1.0) mg/dL Estimated GFR (MDRD) (>89) Glucose (70-100) mg/dL Estimat Average Glucose (70-100) mg/dL Hemoglobin A1c % (4.27-6.07) % Lactic Acid 2.0 (0.5-2.2) mmol/L Calcium (8.5-10.3) mg/dL Phosphorus 2.2 L (2.5-4.6) mg/dL Magnesium 1.6 L (1.7-2.8) mg/dL Total Bilirubin (0.2-1.0) mg/dL AST (10-42) IU/L ALT (10-60) IU/L Alkaline Phosphatase (42-121) IU/L Total Protein (6.7-8.2) g/dL Albumin (3.2-5.5) g/dL Globulin (2.1-4.2) g/dL Albumin/Globulin Ratio (1.0-2.2) Urine Color Urine Clarity (CLEAR) Urine pH (5.0-7.5) PH Ur Specific [place] (1.002-1.030) Urine Protein (NEGATIVE) mg/dL Urine Glucose (UA) (NEGATIVE) mg/dL Urine Ketones (NEGATIVE) mg/dL Urine Occult Blood (NEGATIVE) Urine Nitrite (NEGATIVE) Urine Bilirubin (NEGATIVE) Urine Urobilinogen (NORMAL) E.U./dL Ur Leukocyte Esterase (NEGATIVE) Urine RBC (0-5) /HPF Urine WBC (0-5) /HPF Ur Squamous Epith Cells (<= Few) Amorphous Sediment /LPF Urine Bacteria (None Seen) /HPF Urine Culture Comments Nasal Adenovirus (PCR) Nasal B. parapertussis DNA (PCR) Nasal Coronavir 229E PCR Nasal Coronavir HKU1 PCR Nasal Coronavir NL63 PCR Nasal Coronavir OC43 PCR Nasal Enterovir/Rhinovir PCR Nasal Influenza B PCR Nasal Influenza A PCR Nasal Parainfluen 1 PCR Nasal Parainfluen 2 PCR Nasal Parainfluen 3 PCR Nasal Parainfluen 4 PCR Nasal RSV (PCR) Nasal B.pertussis DNA PCR Nasal C.pneumoniae (PCR) Jeancarlos Human Metapneumo PCR Nasal M.pneumoniae (PCR) Nasal SARS-CoV-2 (PCR) 03/23/22 03/23/22 03/23/22 Range/Units 21:38 18:28 15:48 WBC (4.8-10.8) x10^3/uL RBC (4.20-5.40) 10^6/uL Hgb (12.0-16.0) g/dL Hct (37.0-47.0) % MCV (81.0-99.0) fL MCH (27.0-31.0) pg MCHC (32.0-36.0) g/dL RDW (12.0-15.0) % Plt Count (130-450) 10^3/uL MPV (7.9-10.8) fL Neut # (Auto) (1.5-6.6) 10^3/uL Lymph # (Auto) (1.5-3.5) 10^3/uL [place] # (Auto) (0.0-1.0) 10^3/uL Eos # (Auto) (0.0-0.7) 10^3/uL Baso # (Auto) (0.0-0.1) 10^3/uL Absolute Nucleated RBC x10^3/uL Total Counted Band Neuts % (Manual) (0 - 10) % Abnorm Lymph % (Manual) % Nucleated RBC % /100WBC Neutrophils # (Manual) (1.5-6.6) 10^3/uL Lymphocytes # (Manual) (1.5-3.5) 10^3/uL Monocytes # (Manual) (0.0-1.0) 10^3/uL Eosinophils # (Manual) (0-0.7) 10^3/uL Basophils # (Manual) (0-0.1) 10^3/uL Differential Comment WBC Morphology (NORMAL) Platelet Estimate (NORMAL) Platelet Morphology (NORMAL) RBC Morph Micro Appear (NORMAL) Sodium (135-145) mmol/L Potassium (3.5-5.0) mmol/L Chloride (101-111) mmol/L Carbon Dioxide (21-32) mmol/L Anion Gap (6-13) BUN (6-20) mg/dL Creatinine (0.4-1.0) mg/dL Estimated GFR (MDRD) (>89) Glucose (70-100) mg/dL Estimat Average Glucose (70-100) mg/dL Hemoglobin A1c % (4.27-6.07) % Lactic Acid 2.7 H 2.4 H (0.5-2.2) mmol/L Calcium (8.5-10.3) mg/dL Phosphorus (2.5-4.6) mg/dL Magnesium (1.7-2.8) mg/dL Total Bilirubin (0.2-1.0) mg/dL AST (10-42) IU/L ALT (10-60) IU/L Alkaline Phosphatase (42-121) IU/L Total Protein (6.7-8.2) g/dL Albumin (3.2-5.5) g/dL Globulin (2.1-4.2) g/dL Albumin/Globulin Ratio (1.0-2.2) Urine Color Urine Clarity (CLEAR) Urine pH (5.0-7.5) PH Ur Specific [place] (1.002-1.030) Urine Protein (NEGATIVE) mg/dL Urine Glucose (UA) (NEGATIVE) mg/dL Urine Ketones (NEGATIVE) mg/dL Urine Occult Blood (NEGATIVE) Urine Nitrite (NEGATIVE) Urine Bilirubin (NEGATIVE) Urine Urobilinogen (NORMAL) E.U./dL Ur Leukocyte Esterase (NEGATIVE) Urine RBC (0-5) /HPF Urine WBC (0-5) /HPF Ur Squamous Epith Cells (<= Few) Amorphous Sediment /LPF Urine Bacteria (None Seen) /HPF Urine Culture Comments Nasal Adenovirus (PCR) NOT DETECTED Nasal B. parapertussis DNA (PCR) NOT DETECTED Nasal Coronavir 229E PCR NOT DETECTED Nasal Coronavir HKU1 PCR NOT DETECTED Nasal Coronavir NL63 PCR NOT DETECTED Nasal Coronavir OC43 PCR NOT DETECTED Nasal Enterovir/Rhinovir PCR NOT DETECTED Nasal Influenza B PCR NOT DETECTED Nasal Influenza A PCR NOT DETECTED Nasal Parainfluen 1 PCR NOT DETECTED Nasal Parainfluen 2 PCR NOT DETECTED Nasal Parainfluen 3 PCR NOT DETECTED Nasal Parainfluen 4 PCR NOT DETECTED Nasal RSV (PCR) NOT DETECTED Nasal B.pertussis DNA PCR NOT DETECTED Nasal C.pneumoniae (PCR) NOT DETECTED Jeancarlos Human Metapneumo PCR NOT DETECTED Nasal M.pneumoniae (PCR) NOT DETECTED Nasal SARS-CoV-2 (PCR) NOT DETECTED 03/23/22 03/23/22 03/23/22 Range/Units 15:09 15:05 13:45 WBC (4.8-10.8) x10^3/uL RBC (4.20-5.40) 10^6/uL Hgb (12.0-16.0) g/dL Hct (37.0-47.0) % MCV (81.0-99.0) fL MCH (27.0-31.0) pg MCHC (32.0-36.0) g/dL RDW (12.0-15.0) % Plt Count (130-450) 10^3/uL MPV (7.9-10.8) fL Neut # (Auto) (1.5-6.6) 10^3/uL Lymph # (Auto) (1.5-3.5) 10^3/uL [place] # (Auto) (0.0-1.0) 10^3/uL Eos # (Auto) (0.0-0.7) 10^3/uL Baso # (Auto) (0.0-0.1) 10^3/uL Absolute Nucleated RBC x10^3/uL Total Counted Band Neuts % (Manual) (0 - 10) % Abnorm Lymph % (Manual) % Nucleated RBC % /100WBC Neutrophils # (Manual) (1.5-6.6) 10^3/uL Lymphocytes # (Manual) (1.5-3.5) 10^3/uL Monocytes # (Manual) (0.0-1.0) 10^3/uL Eosinophils # (Manual) (0-0.7) 10^3/uL Basophils # (Manual) (0-0.1) 10^3/uL Differential Comment WBC Morphology (NORMAL) Platelet Estimate (NORMAL) Platelet Morphology (NORMAL) RBC Morph Micro Appear (NORMAL) Sodium (135-145) mmol/L Potassium (3.5-5.0) mmol/L Chloride (101-111) mmol/L Carbon Dioxide (21-32) mmol/L Anion Gap (6-13) BUN (6-20) mg/dL Creatinine (0.4-1.0) mg/dL Estimated GFR (MDRD) (>89) Glucose (70-100) mg/dL Estimat Average Glucose (70-100) mg/dL Hemoglobin A1c % (4.27-6.07) % Lactic Acid 2.4 H 3.6 H* (0.5-2.2) mmol/L Calcium (8.5-10.3) mg/dL Phosphorus (2.5-4.6) mg/dL Magnesium (1.7-2.8) mg/dL Total Bilirubin (0.2-1.0) mg/dL AST (10-42) IU/L ALT (10-60) IU/L Alkaline Phosphatase (42-121) IU/L Total Protein (6.7-8.2) g/dL Albumin (3.2-5.5) g/dL Globulin (2.1-4.2) g/dL Albumin/Globulin Ratio (1.0-2.2) Urine Color YELLOW Urine Clarity CLOUDY (CLEAR) Urine pH 6.0 (5.0-7.5) PH Ur Specific [place] 1.010 (1.002-1.030) Urine Protein TRACE (NEGATIVE) mg/dL Urine Glucose (UA) NEGATIVE (NEGATIVE) mg/dL Urine Ketones TRACE (NEGATIVE) mg/dL Urine Occult Blood LARGE H (NEGATIVE) Urine Nitrite NEGATIVE (NEGATIVE) Urine Bilirubin NEGATIVE (NEGATIVE) Urine Urobilinogen 1 (NORMAL) (NORMAL) E.U./dL Ur Leukocyte Esterase MODERATE H (NEGATIVE) Urine RBC TNTC H (0-5) /HPF Urine WBC >25 H (0-5) /HPF Ur Squamous Epith Cells FEW Squamous (<= Few) Amorphous Sediment Moderate /LPF Urine Bacteria Moderate H (None Seen) /HPF Urine Culture Comments INDICATED Nasal Adenovirus (PCR) Nasal B. parapertussis DNA (PCR) Nasal Coronavir 229E PCR Nasal Coronavir HKU1 PCR Nasal Coronavir NL63 PCR Nasal Coronavir OC43 PCR Nasal Enterovir/Rhinovir PCR Nasal Influenza B PCR Nasal Influenza A PCR Nasal Parainfluen 1 PCR Nasal Parainfluen 2 PCR Nasal Parainfluen 3 PCR Nasal Parainfluen 4 PCR Nasal RSV (PCR) Nasal B.pertussis DNA PCR Nasal C.pneumoniae (PCR) Jeancarlos Human Metapneumo PCR Nasal M.pneumoniae (PCR) Nasal SARS-CoV-2 (PCR) 03/23/22 03/23/22 Range/Units 13:45 13:45 WBC 15.1 H (4.8-10.8) x10^3/uL RBC 4.13 L (4.20-5.40) 10^6/uL Hgb 11.8 L (12.0-16.0) g/dL Hct 37.7 (37.0-47.0) % MCV 91.3 (81.0-99.0) fL MCH 28.6 (27.0-31.0) pg MCHC 31.3 L (32.0-36.0) g/dL RDW 14.1 (12.0-15.0) % Plt Count 505 H (130-450) 10^3/uL MPV 9.0 (7.9-10.8) fL Neut # (Auto) 14.5 H (1.5-6.6) 10^3/uL Lymph # (Auto) 0.3 L (1.5-3.5) 10^3/uL [place] # (Auto) 0.1 (0.0-1.0) 10^3/uL Eos # (Auto) 0.0 (0.0-0.7) 10^3/uL Baso # (Auto) 0.1 (0.0-0.1) 10^3/uL Absolute Nucleated RBC 0.00 x10^3/uL Total Counted Band Neuts % (Manual) (0 - 10) % Abnorm Lymph % (Manual) % Nucleated RBC % 0.0 /100WBC Neutrophils # (Manual) (1.5-6.6) 10^3/uL Lymphocytes # (Manual) (1.5-3.5) 10^3/uL Monocytes # (Manual) (0.0-1.0) 10^3/uL Eosinophils # (Manual) (0-0.7) 10^3/uL Basophils # (Manual) (0-0.1) 10^3/uL Differential Comment WBC Morphology (NORMAL) Platelet Estimate (NORMAL) Platelet Morphology (NORMAL) RBC Morph Micro Appear (NORMAL) Sodium 132 L (135-145) mmol/L Potassium 4.5 (3.5-5.0) mmol/L Chloride 99 L (101-111) mmol/L Carbon Dioxide 18 L (21-32) mmol/L Anion Gap 15.0 H (6-13) BUN 28 H (6-20) mg/dL Creatinine 1.1 H (0.4-1.0) mg/dL Estimated GFR (MDRD) 49 L (>89) Glucose 285 H (70-100) mg/dL Estimat Average Glucose (70-100) mg/dL Hemoglobin A1c % (4.27-6.07) % Lactic Acid (0.5-2.2) mmol/L Calcium 9.7 (8.5-10.3) mg/dL Phosphorus (2.5-4.6) mg/dL Magnesium (1.7-2.8) mg/dL Total Bilirubin 1.1 H (0.2-1.0) mg/dL AST 27 (10-42) IU/L ALT 24 (10-60) IU/L Alkaline Phosphatase 161 H (42-121) IU/L Total Protein 7.5 (6.7-8.2) g/dL Albumin 3.2 (3.2-5.5) g/dL Globulin 4.3 H (2.1-4.2) g/dL Albumin/Globulin Ratio 0.7 L (1.0-2.2) Urine Color Urine Clarity (CLEAR) Urine pH (5.0-7.5) PH Ur Specific [place] (1.002-1.030) Urine Protein (NEGATIVE) mg/dL Urine Glucose (UA) (NEGATIVE) mg/dL Urine Ketones (NEGATIVE) mg/dL Urine Occult Blood (NEGATIVE) Urine Nitrite (NEGATIVE) Urine Bilirubin (NEGATIVE) Urine Urobilinogen (NORMAL) E.U./dL Ur Leukocyte Esterase (NEGATIVE) Urine RBC (0-5) /HPF Urine WBC (0-5) /HPF Ur Squamous Epith Cells (<= Few) Amorphous Sediment /LPF Urine Bacteria (None Seen) /HPF Urine Culture Comments Nasal Adenovirus (PCR) Nasal B. parapertussis DNA (PCR) Nasal Coronavir 229E PCR Nasal Coronavir HKU1 PCR Nasal Coronavir NL63 PCR Nasal Coronavir OC43 PCR Nasal Enterovir/Rhinovir PCR Nasal Influenza B PCR Nasal Influenza A PCR Nasal Parainfluen 1 PCR Nasal Parainfluen 2 PCR Nasal Parainfluen 3 PCR Nasal Parainfluen 4 PCR Nasal RSV (PCR) Nasal B.pertussis DNA PCR Nasal C.pneumoniae (PCR) Jeancarlos Human Metapneumo PCR Nasal M.pneumoniae (PCR) Nasal SARS-CoV-2 (PCR) Sepsis Event Note (H) - Evaluation Current Stage of Sepsis: Resolved Possible source of Sepsis: positive: Genitourinary Assessment/Plan - Problem List (1) Sepsis Impression: Her septic shock appears to have resolved based on vitals and clinical presentation. Her vitals remained stable overnight with no acute events. Her blood pressure earlier today was 135/83 and she has not been hypotensive since yesterday. Her white blood cell count today was 23.6. The source of her sepsis was her urine and she is being treated with IV Ceftriaxone. We will continue to wait for the sensitivity report to determine if there needs to be a change in antibiotics and switch her to oral antibiotics upon discharge. Qualifiers: Sepsis type: sepsis due to unspecified organism Sepsis acute organ dysfunction status: without acute organ dysfunction Qualified Code(s): A41.9 - Sepsis, unspecified organism (2) Urinary tract infection Impression: Urine culture grew out E. Coli. She is being treated with IV Ceftriaxone. Antibiotics will be adjusted based on sensitivity report. Qualifiers: Urinary tract infection type: site unspecified Hematuria presence: without hematuria Qualified Code(s): N39.0 - Urinary tract infection, site not specified (3) Type 2 diabetes mellitus Impression: Her metformin has been stopped in the hospital, and her diabetes is being managed with insulin while she is in the hospital. Her A1C checked his morning was 7.1%. Her glucose today was 131. 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 Her blood pressure today was 135/83. (5) Bedbound Impression: She has remained bedbound following [place] operation on both hips after dev eloping osteomyelitis in 2014. (6) Atrial fibrillation with RVR Impression: Heart rate today was 113 and has decreased since admission yesterday. Her A-fib was temporarily being controlled with 4 doses of Digoxin since she was hypotensive following two doses of Diltiazem yesterday in the ED. We will continue to control her A-fib with Metoprolol since her blood pressure has since improved. CHADS-VASC score was 4, indicating that she is a candidate for anticoagulation.
[2022-03-25] MEDS: SODIUM CHLORIDE FLUSH 0.9% 10 ML SYRINGE IVP SCH ×3 (00:11→17:18)
[2022-03-25 05:18] LABS: BASOPHILS % (AUTO) 0.7 %; EOSINOPHILS % (AUTO) 0.2 %; HCT - HEMATOCRIT 35.1 % (37.0-47.0); HGB - HEMOGLOBIN 10.5 g/dL (12.0-16.0); LYMPHOCYTES % (AUTO) 6.9 %; MEAN CORPUSCULAR HEMOGLOBIN 27.8 pg (27.0-31.0); MEAN CORPUSCULAR HGB CONC 29.9 g/dL (32.0-36.0); MEAN CORPUSCULAR VOLUME 92.9 fL (81.0-99.0); MEAN PLATELET VOLUME 9.4 fL (7.9-10.8); MONOCYTES % (AUTO) 6.5 %; NEUTROPHILS % (AUTO) 85.1 %; PLT - PLATELET COUNT 516 10^3/uL (130-450); RED BLOOD COUNT 3.78 10^6/uL (4.20-5.40); RED CELL DISTRIBUTION WIDTH 14.2 % (12.0-15.0); WHITE BLOOD COUNT 20.7 x10^3/uL (4.8-10.8)
[2022-03-25 05:22] LABS: ABNORMAL LYMPHS % (MANUAL) 0 %
[2022-03-25 05:31] LABS: CALCIUM 8.2 mg/dL (8.5-10.3); CREATININE 0.8 mg/dL (0.4-1.0); POTASSIUM 3.9 mmol/L (3.5-5.0)
[2022-03-25 05:42] LABS: BAND NEUTROPHILS % (MANUAL) 2 %; DIFFERENTIAL COMMENT MANUAL DIFFERENTIAL; LYMPHOCYTES # (MANUAL) 1.4 10^3/uL (1.5-3.5); LYMPHOCYTES % (MANUAL) 7 %; MONOCYTES # (MANUAL) 0.6 10^3/uL (0.0-1.0); NEUTROPHILS # (MANUAL) 18.6 10^3/uL (1.5-6.6); PLATELET ESTIMATE, MANUAL INCREASED (>450,000) (NORMAL); PLATELET MORPHOLOGY NORMAL APPEARANCE (NORMAL); RBC MORPHOLOGY (MULTIPLE) M (NORMAL); WBC MORPHOLOGY (MULTIPLE) NORMAL APPEARANCE (NORMAL)
[2022-03-25] MEDS: METOPROLOL TARTRATE 25 MG TABLET PO SCH ×2 (08:51→21:09)
[2022-03-25] MEDS: cefTRIAXone 1 GM in SODIUM CHLORIDE 0.9% MINIBAG 100 ML IV SCH (08:53)
[2022-03-25] MEDS: INSULIN LISPRO 300 UNIT/3 ML PEN SUBQ SCH ×4 (09:00→21:10)
[2022-03-25] MEDS: ENOXAPARIN 40 MG/0.4 ML SYRINGE SUBQ SCH (09:03)
[2022-03-25] MEDS: SODIUM CHLORIDE 0.9% 1,000 ML IV SCH ×3 (09:06→23:45)
[2022-03-25] MEDS: MULTIVITAMIN W/MINERALS TABLET PO SCH (17:17)
--- NOTE | 2022-03-25 18:39 | PROVIDER PROGRESS NOTE ---
Subjective - Prog Note Date Prog Note Date: 03/25/22 Prog Note Time: 18:44 - Subjective Pt reports feeling: Improved Subjective: She feels back to baseline. She is cheerful, alert. Wants to go home. But I told her that we would have to figure out what to do about her antibiotics since I do not know if I can send her home on oral medications. She is understandably disappointed Current Medications - Current Medications Current Medications: Active Medications Acetaminophen (Acetaminophen 325 Mg Tablet) 650 mg PO Q4HR PRN PRN Reason: Pain 1 to 4, or Fever Enoxaparin Sodium (Enoxaparin 40 Mg/0.4 Ml Syringe) 40 mg SUBQ DAILY [facility] Last Admin: 03/25/22 09:03 Dose: 40 mg Sodium Chloride (Normal Saline 0.9%) 1,000 mls @ 100 mls/hr IV .Q10H [facility] Last Admin: 03/25/22 09:06 Dose: 100 mls/hr Ceftriaxone Sodium 1 gm/ (Sodium Chloride) 100 mls @ 200 mls/hr IV DAILY [facility] Stop: 03/30/22 09:29 Last Infusion: 03/25/22 09:25 Dose: Infused Insulin Human Lispro (Insulin Lispro 300 Unit/3 Ml Pen) 1 - 9 unit SUBQ 0800,1200,1700,2100 [facility]; Protocol Last Admin: 03/25/22 17:17 Dose: 1 unit Metoprolol Tartrate (Metoprolol Tartrate 25 Mg Tablet) 25 mg PO BID [facility] Last Admin: 03/25/22 08:51 Dose: 25 mg Mineral Oil (Min Oil/Dimethicon/Coconut Oil 92 Gm Tube) 1 applic TOP PRN PRN PRN Reason: Skin Care Multivitamins/Minerals (Multivitamin W/Minerals Tablet) 1 tab PO DAILYWM [facility] Last Admin: 03/25/22 17:17 Dose: 1 tab Ondansetron HCl (Ondansetron Odt 4 Mg Tablet) 4 mg TL Q6HR PRN PRN Reason: Nausea / Vomiting Ondansetron HCl (Ondansetron 4 Mg/2 Ml Vial) 4 mg IVP Q6HR PRN PRN Reason: Nausea / Vomiting Oxycodone HCl (Oxycodone 5 Mg Tablet) 5 mg PO Q4HR PRN PRN Reason: Pain 5 to 7 Sodium Chloride (Sodium Chloride Flush 0.9% 10 Ml Syringe) 10 ml IVP PRN PRN PRN Reason: NEEDED PER PROVIDER ORDERS Last Admin: 03/24/22 10:07 Dose: 20 ml Sodium Chloride (Sodium Chloride Flush 0.9% 10 Ml Syringe) 10 ml IVP 0100,0900,1700 [facility] Last Admin: 03/25/22 17:18 Dose: Not Given oxyCODONE [Roxicodone] 5 - 10 mg PO TID PRN 03/18/15 Amlodipine Besylate 5 mg PO QPM 10/26/18 Aspirin 81 mg PO DAILY 10/26/18 Atorvastatin [Lipitor] 10 mg PO QPM 10/26/18 Acetaminophen 500 mg PO DAILY PRN 12/29/18 Calcium Carbonate 500 mg PO Q12H PRN 12/29/18 Cholecalciferol (Vitamin D3) [Vitamin D3] 2,000 units PO DAILY 12/29/18 Clotrimazole [Clotrimazole AF] 1 applic TOP BID PRN 12/29/18 Diclofenac Potassium 50 mg PO TID PRN 12/29/18 Folic Acid 0.8 mg PO DAILY 12/29/18 Multivitamin W/Minerals [Theragran M] 1 tab PO DAILY 12/29/18 Nystatin [Nystop] 1 applic TOP DAILY PRN 12/29/18 Sennosides [Senna] 8.6 mg PO BID PRN 12/29/18 diphenhydrAMINE HCl [Diphenhydramine HCl] 25 mg PO Q4H PRN 12/29/18 Cetirizine [ZyrTEC] 10 mg PO DAILY 03/24/22 Duloxetine HCl [Cymbalta] 60 mg PO QPM 03/24/22 Empagliflozin [Jardiance] 10 mg PO DAILY 03/24/22 Gabapentin [Neurontin] 100 mg PO QPM 03/24/22 Loperamide HCl [Imodium A-D] 2 mg PO PRN PRN 03/24/22 Metformin HCl 1,000 mg PO BID 03/24/22 Psyllium Husk (with Sugar) [Fiber Powder] 2 tsp PO DAILY 03/24/22 guaiFENesin [Tussin] 5 ml PO Q4H PRN 03/24/22 polyethylene glycoL 3350 [Miralax] 17 gm PO DAILY PRN 03/24/22 Objective - Vital Signs/Intake & Output Reviewed Vital Signs: Yes Vital Signs: Vital Signs x48h Temp Pulse Resp BP Pulse Ox 03/25/22 15:54 36.7 C 97 24 129/79 94 Intake & Output: Intake & Output 03/22/22 03/23/22 03/24/22 03/25/22 23:59 23:59 23:59 23:59 Intake Total 5193.700 3213.132 1500 Output Total 300 2150 1050 Balance 4893.700 1063.132 450 - Objective General Appearance: positive: No acute distress, Alert Eyes Bilateral: positive: PERRL ENT: positive: No signs of dehydration Neck: positive: No JVD. negative: Stiff neck Respiratory: positive: No respiratory distress. negative: Wheezes, Rales, Rhonchi Cardiovascular: positive: Irregularly irregular, Tachycardia Abdomen: positive: Non-tender, No organomegaly, Nml bowel sounds, No distention Skin: positive: Warm, Dry Neurologic/Psychiatric: positive: Oriented x3, CN's nml (2-12). negative: Motor nml (Legs do not move very much because of the Girdlestone procedure but she can flex extend her feet. Move her legs on the bed) - Lab Results Fish Bones: 03/25/22 04:37 03/25/22 04:37 Other Labs: Lab Results x24hrs 03/25/22 03/25/22 Range/Units 04:37 04:37 WBC 20.7 H (4.8-10.8) x10^3/uL RBC 3.78 L (4.20-5.40) 10^6/uL Hgb 10.5 L (12.0-16.0) g/dL Hct 35.1 L (37.0-47.0) % MCV 92.9 (81.0-99.0) fL MCH 27.8 (27.0-31.0) pg MCHC 29.9 L (32.0-36.0) g/dL RDW 14.2 (12.0-15.0) % Plt Count 516 H (130-450) 10^3/uL MPV 9.4 (7.9-10.8) fL Neut # (Auto) Not Reportable Lymph # (Auto) Not Reportable Garza # (Auto) Not Reportable Eos # (Auto) Not Reportable Baso # (Auto) Not Reportable Absolute Nucleated RBC Not Reportable Total Counted 100 Band Neuts % (Manual) 2 (0 - 10) % Abnorm Lymph % (Manual) 0 % Nucleated RBC % Not Reportable Neutrophils # (Manual) 18.6 H (1.5-6.6) 10^3/uL Lymphocytes # (Manual) 1.4 L (1.5-3.5) 10^3/uL Monocytes # (Manual) 0.6 (0.0-1.0) 10^3/uL Eosinophils # (Manual) 0.0 (0-0.7) 10^3/uL Basophils # (Manual) 0.0 (0-0.1) 10^3/uL Differential Comment MANUAL DIFFERENTIAL WBC Morphology NORMAL APPEARANCE (NORMAL) Platelet Estimate INCREASED (>450,000) (NORMAL) Platelet Morphology NORMAL APPEARANCE (NORMAL) RBC Morph Micro Appear M (NORMAL) Sodium 136 (135-145) mmol/L Potassium 3.9 (3.5-5.0) mmol/L Chloride 110 (101-111) mmol/L Carbon Dioxide 16 L (21-32) mmol/L Anion Gap 10.0 (6-13) BUN 20 (6-20) mg/dL Creatinine 0.8 (0.4-1.0) mg/dL Estimated GFR (MDRD) 71 L (>89) Glucose 136 H (70-100) mg/dL Calcium 8.2 L (8.5-10.3) mg/dL ABX Reporting Has patient been on IV antibiotics over the past 48 hours?: Yes Sepsis Event Note (H) - Evaluation Current Stage of Sepsis: Resolved Possible source of Sepsis: positive: Genitourinary - Sepsis Criteria Sepsis Criteria: Recorded Heart Rate greater than 90 bpm, WBC count greater than 12,000 or less than 4000 Assessment/Plan - Problem List (1) E coli bacteremia Impression: Her septic shock appears to have resolved based on vitals and clinical presentation. Been stable.She was initially hypotensive and since the second day of her stay white cell count was initially 15,000 and then went up to 23,000. Today is 20.7. Blood cultures had gram-negative bacteremia and now identified as E. coli. E. coli is resistant to ampicillin, Unasyn, Cipro, and levofloxacin. The source of her sepsis was her urine and she is being treated with IV Ceftri axone. I had hoped that I could switch her over to oral equivalents. But I do not believe I can send the patient home on oral Keflex or Bactrim or Macrobid for bacteremia. Plan: I will discuss with infectious disease consultation tomorrow. She is hemodynamically stable and other than her white cell count is doing very well. Qualifiers: Sepsis type: sepsis due to unspecified organism Sepsis acute organ dysfunction status: without acute organ dysfunction Qualified Code(s): A41.9 - Sepsis, unspecified organism (2) Urinary tract infection Impression: Urine culture grew out E. Coli. She is being treated with IV Ceftriaxone. Day #3. She will need possibly up to 14 days. Maybe we can get away with 10 days. Qualifiers: Urinary tract infection type: site unspecified Hematuria presence: without hematuria Qualified Code(s): N39.0 - Urinary tract infection, site not specified (3) Type 2 diabetes mellitus Impression: Her metformin has been stopped in the hospital, and her diabetes is being managed with insulin while she is in the hospital. Her A1C checked was 7.1%. Continue lispro as needed. With sliding scale. 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 Blood pressure is in the 120 systolic. 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 (6) Atrial fibrillation with RVR Impression: Heart rate today was 113 and has decreased since admission yesterday. Her A-fib was temporarily being controlled with 4 doses of Digoxin since she was hypotensive following two doses of Diltiazem in the ED. I controlled her A-fib with Metoprolol after that since her blood pressure has since improved. CHADS-VASC score was 4, indicating that she is a candidate for anticoagulation. Currently on metoprolol 25 p.o. twice daily. Lovenox. Heart rate is in the 90s. Will increase metoprolol dose.
[2022-03-26] MEDS: SODIUM CHLORIDE FLUSH 0.9% 10 ML SYRINGE IVP SCH ×2 (01:44→09:19)
[2022-03-26 04:42] LABS: BASOPHILS % (AUTO) 0.6 %; EOSINOPHILS % (AUTO) 0.3 %; HCT - HEMATOCRIT 36.3 % (37.0-47.0); HGB - HEMOGLOBIN 11.1 g/dL (12.0-16.0); LYMPHOCYTES % (AUTO) 6.9 %; MEAN CORPUSCULAR HEMOGLOBIN 28.1 pg (27.0-31.0); MEAN CORPUSCULAR HGB CONC 30.6 g/dL (32.0-36.0); MEAN CORPUSCULAR VOLUME 91.9 fL (81.0-99.0); MEAN PLATELET VOLUME 9.4 fL (7.9-10.8); NEUTROPHILS % (AUTO) 85.5 %; PLT - PLATELET COUNT 612 10^3/uL (130-450); RED BLOOD COUNT 3.95 10^6/uL (4.20-5.40); RED CELL DISTRIBUTION WIDTH 14.2 % (12.0-15.0); WHITE BLOOD COUNT 21.9 x10^3/uL (4.8-10.8)
[2022-03-26 04:56] LABS: CALCIUM 8.1 mg/dL (8.5-10.3); CREATININE 0.8 mg/dL (0.4-1.0)
[2022-03-26 05:02] LABS: ABNORMAL LYMPHS % (MANUAL) 0 %
[2022-03-26 05:28] LABS: BAND NEUTROPHILS % (MANUAL) 6 %; DIFFERENTIAL COMMENT MANUAL DIFFERENTIAL; EOSINOPHILS # (MANUAL) 0.7 10^3/uL (0-0.7); LYMPHOCYTES # (MANUAL) 1.3 10^3/uL (1.5-3.5); LYMPHOCYTES % (MANUAL) 6 %; MYELOCYTES % (MANUAL) 1 %; NEUTROPHILS # (MANUAL) 19.7 10^3/uL (1.5-6.6); PLATELET ESTIMATE, MANUAL INCREASED (>450,000) (NORMAL); RBC MORPHOLOGY (MULTIPLE) NORMAL APPEARANCE (NORMAL); WBC MORPHOLOGY (MULTIPLE) 1+ TOXIC GRANULATION (NORMAL)
[2022-03-26] MEDS: SODIUM CHLORIDE 0.9% 1,000 ML IV SCH (06:05)
[2022-03-26 07:34] VITALS: BP 141/77
[2022-03-26] MEDS: METOPROLOL TARTRATE 25 MG TABLET PO SCH (09:07)
[2022-03-26] MEDS: INSULIN LISPRO 300 UNIT/3 ML PEN SUBQ SCH ×2 (09:07→12:41)
[2022-03-26] MEDS: MULTIVITAMIN W/MINERALS TABLET PO SCH (09:08)
[2022-03-26] MEDS: cefTRIAXone 1 GM in SODIUM CHLORIDE 0.9% MINIBAG 100 ML IV SCH (09:09)
[2022-03-26] MEDS: ENOXAPARIN 40 MG/0.4 ML SYRINGE SUBQ SCH (09:09)
--- NOTE | 2022-03-26 13:10 | Discharge Plan ---
Discharge Plan Problem Reviewed?: Yes Disposition: 61 Swing Bed DC/Xfer Condition: Fair Diet: Regular Activity Restrictions: Activity as Tolerated No Smoking: If you smoke, Please STOP! Call for help.
--- NOTE | 2022-03-26 13:11 | DISCHARGE SUMMARY ---
"Discharge Summary Admit Date: 03/23/22 Discharge Date: 03/26/22 Discharging Provider: Holly Mitchell MD Primary Care Provider: Katherin Willis DNP @ [facility] in [place] Code Status: Attempt Resuscitation Condition at Discharge: Fair Discharge Disposition: 61 Swing Bed DC/Xfer - DIAGNOSES Discharge Diagnoses with Status of Each Condition: 1. Sepsis 2. Bacteremia with E. coli 3. UTI with E. coli 4. Type 2 diabetes mellitus, with hyperglycemia, without long-term use of insulin 5. Hypertension 6. Bedbound 7. Atrial fibrillation with RVR 8. Chronic systolic heart failure - HPI History of Present Illness: This unfortunate 71-year-old female has inability to ambulate due to a Girdlestone operation. She has had several hip infections and there was excision of cement and prosthesis without attempt at new hip replacement. Hip replacements were done in 1998 and 1999 respectively. Then the Girdlestone procedure on 1 hip was done in 2010 and left her with only 1 good hip. Then in 2014 she had a second episode of osteomyelitis and a Girdlestone procedure of the 1 good hip. She has become basically bedbound and now lives in an adult home since 2014. She was brought in by ambulance to our emergency room because she was developing dark cloudy, foul-smelling urine. She has a history of atrial fibrillation. In addition to the urine changes, she describes 2 days of visual and auditory, nonthreatening, hallucinations. She denied fever, rigors. She denied abdominal pain. No cough, chest congestion, chest pain. With a previous hospitalization for a UTI she also had metabolic encephalopathy and auditory hallucinations as well. Case discussed with Dr. Atkinson and in the emergency room temperature was 37.6. Heart rate was 138. Blood pressure 176/78. Respirations 19 and 96% in room air . She was alert and oriented x3. She had a fast irregularly irregular heart rate without a murmur. Abdomen was nontender. Normal bowel sounds. She had atrophic legs with external rotation of both hips. She was given diltiazem 10 mg followed by diltiazem 20 mg to slow down her heart rate. It did slow it down 220 but blood pressure was 99/48 with that. O2 sat was now 95%. She also received 2 L of wide-open normal saline. Electrolytes showed BUN of 28, creatinine of 1.1. Baseline creatinine is 0.7 or 0.5 for her. Lactic acid was 3.6 and with IV fluids and a dose of antibiotics her lactic acid 1-2.4. Urinalysis had a large amount of occult blood, moderate leukocyte Estrace, too numerous to count red cells, greater than 25 white cells. A few squamous epithelial cells, moderate bacteria. Culture was indicated and will be sent. White cell count is 15.1. She appears to have a chronic elevation for most of the last 7 years. The highest she has been is 30.5 thousand in December 2018. Urine culture from August 2018 with Pseudomonas. E. coli grew out in September 2018, December 2018, and the E. coli was resistant to ampicillin, cephalothin, ciprofloxacin, Levaquin, piperacillin. At that time it was sensitive to ceftriaxone, cefuroxime and ertapenem. She did receive ceftriaxone in the emergency room. - Past Medical History Cardiovascular: reports: Hypertension, High cholesterol, Deep vein thrombosis (2010 according to patient), Murmur Respiratory: reports: Pneumonia Neuro: reports: CVA (1999 w mild memory loss after), Headaches, Peripheral neuropathy Endocrine/Autoimmune: reports: Type 2 diabetes GI: reports: GERD PLANT PROTECTION OFFICER: reports: Ovarian cysts (removed in [facility]. ), Uterine cancer, Other (. posstmenopausal bleeding 2019. ) : reports: Incontinence, Chronic bladder infection, Frequency HEENT: reports: Chronic sinusitis Psych: reports: Depression, Anxiety Musculoskeletal: reports: Osteoarthritis, Osteoporosis, Paraplegia (due to bilateral hip joint removal) Derm: reports: None MRSA Hx?: Yes - Past Surgical History General: reports: Appendectomy (related to ex lap for appy but turned out to be ovarian cyst) Ortho: reports: Hip replacement, Other /PLANT PROTECTION OFFICER: reports: Hysterectomy HEENT: reports: Tonsil/Adenoidectomy - CONSULTS | PROCEDURES Procedures: Echocardiogram done for atrial fibrillation shows left ventricular systolic function severely impaired with an ejection fraction of 25 to 30%. Calculated left ventricular ejection fraction is 30%. There are regional wall motions abnormality. All basal segments have the best function. The distal two thirds of the left ventricle is severely hypokinetic to akinetic. Mild increase in left atrial volume index. No significant valvular heart disease. This is a preliminary report and it must be confirmed with final. Blood culture on March 23 positive for E. coli Urine culture March 23 positive for E. coli. - HOSPITAL COURSE Hospital Course: When she received IV fluids and antibiotics, criteria for sepsis resolved. Blood pressure began to rebound. Although it was questionable whether the hypotension was due to sepsis or was it due to 2 doses of IV Cardizem in the emergency room for her A. fib. Source of her sepsis was urine and she was treated with ceftriaxone IV. Urine culture initially grew out E. coli and blood cultures were with gram-negative rods. Final sensitivities are available late yesterday afternoon and the E. coli is resistant to ampicillin, Unasyn, ciprofloxacin, Levaquin. It is sensitive to Bactrim but it is dubious that we can achieve adequate therapeutic dosing with oral Bactrim in this patient who is bedbound and with frequent UTIs. As such we have decided to complete 10 days of IV antibiotic therapy with Rocephin. And we are transitioning her swing bed status for completion of therapy. Her diabetes mellitus was controlled with simple sliding scale insulin. In the hospital, I opted not to use metformin or Jardiance. Blood pressure was stable as I slow down her heart rate with 4 doses of digoxin and then transitioned her to metoprolol 25 twice daily. At home she usually takes amlodipine for blood pressure. It is unclear why she is not on anticoagulation for her atrial fibrillation and I will need to address that with her primary care provider when she is transitioned to Swing bed. Her PCP is HOLLY Ohara at [facility] in [place]. The number is [phone] and I left a message. This will decide whether I continue her on aspirin or change her to Eliquis. Although she has not had any symptoms of congestive heart failure while here, her echocardiogram shows a decline in ejection fraction. I will slowly start her on ROBINSON inhibitor in the next few days. Then add Lasix at low doses since she seems to be well compensated. We will adjust medications as needed to achieve adequate treatment of her CHF with core measures. At discharge temperature 36.3. Heart rate is 103. Blood pressure 141/77. Respirations 20. 94% on room air. She is an exceedingly delightful, cheerful elderly female at 5 foot 3 inches tall, 83.5 kg. She is alert, oriented, understands why she is here. Able to participate in care planning. Neck is supple. Lungs have diminished breath sounds at the bases but are clear. She h as an irregular rate and rhythm that is controlled. Abdomen is soft, hypoactive bowel sounds, nontender. Legs have trace edema around her ankles. Legs are externally rotated at the hip and splayed due to the Girdlestone procedure. She is able to move her legs but cannot weight-bear. Greater than 30 minutes was spent coordinating transfer to swing bed status - ALLERGIES Allergies/Adverse Reactions: Allergies Allergy/AdvReac Type Severity Reaction Status Date / Time vancomycin Allergy Unknown Unknown Verified 03/23/22 13:29 adhesive tape Allergy Itching Verified 03/23/22 15:47 - MEDICATIONS Home Medications: Ambulatory Orders Medication Instructions Recorded Confirmed oxyCODONE [Roxicodone] 5 - 10 mg PO TID PRN 03/18/15 03/24/22 Amlodipine Besylate 5 mg PO QPM 10/26/18 03/24/22 Aspirin 81 mg PO DAILY 10/26/18 03/24/22 Atorvastatin [Lipitor] 10 mg PO QPM 10/26/18 03/24/22 Acetaminophen 500 mg PO DAILY PRN 12/29/18 03/24/22 Calcium Carbonate 500 mg PO Q12H PRN 12/29/18 03/24/22 Cholecalciferol (Vitamin D3) 2,000 units PO DAILY 12/29/18 03/24/22 [Vitamin D3] Clotrimazole [Clotrimazole AF] 1 applic TOP BID PRN 12/29/18 03/24/22 Diclofenac Potassium 50 mg PO TID PRN 12/29/18 03/24/22 Folic Acid 0.8 mg PO DAILY 12/29/18 03/24/22 Multivitamin W/Minerals [Theragran 1 tab PO DAILY 12/29/18 03/24/22 M] Nystatin [Nystop] 1 applic TOP DAILY PRN 12/29/18 03/24/22 Sennosides [Senna] 8.6 mg PO BID PRN 12/29/18 03/24/22 diphenhydrAMINE HCl 25 mg PO Q4H PRN 12/29/18 03/24/22 [Diphenhydramine HCl] Cetirizine [ZyrTEC] 10 mg PO DAILY 03/24/22 03/24/22 Duloxetine HCl [Cymbalta] 60 mg PO QPM 03/24/22 03/24/22 Empagliflozin [Jardiance] 10 mg PO DAILY 03/24/22 03/24/22 Gabapentin [Neurontin] 100 mg PO QPM 03/24/22 03/24/22 Loperamide HCl [Imodium A-D] 2 mg PO PRN PRN 03/24/22 03/24/22 Metformin HCl 1,000 mg PO BID 03/24/22 03/24/22 Psyllium Husk (with Sugar) [Fiber 2 tsp PO DAILY 03/24/22 03/24/22 Powder] guaiFENesin [Tussin] 5 ml PO Q4H PRN 03/24/22 03/24/22 polyethylene glycoL 3350 [Miralax] 17 gm PO DAILY PRN 03/24/22 03/24/22 - LABS Result Diagrams: 03/26/22 04:20 03/26/22 04:20 - SEPSIS Current Stage of Sepsis: Resolved Possible source of Sepsis: Genitourinary Sepsis Criteria: Recorded Heart Rate greater than 90 bpm, WBC count greater than 12,000 or less than 4000"
== END 2022-03-26 15:34 | disposition swing bed (61) | DRG 871 ==
LOC: EDUNIT# → ED 13:19 → MS2 15:31
PROVIDERS: ADMIT Specialist; ATTEND Specialist
DX: A41.9 Sepsis, unspecified organism (principal); A41.51 Sepsis due to Escherichia coli [E. coli]; R65.21 Severe sepsis with septic shock; N17.9 Acute kidney failure, unspecified; E87.20 Acidosis, unspecified; I10 Essential (primary) hypertension; N39.0 Urinary tract infection, site not specified; I50.22 Chronic systolic (congestive) heart failure; G82.20 Paraplegia, unspecified; I48.91 Unspecified atrial fibrillation; E11.65 Type 2 diabetes mellitus with hyperglycemia; I11.0 Hypertensive heart disease with heart failure; E78.00 Pure hypercholesterolemia, unspecified; E11.42 Type 2 diabetes mellitus with diabetic polyneuropathy; K21.9 Gastro-esophageal reflux disease without esophagitis; F32.A Depression, unspecified; F41.9 Anxiety disorder, unspecified; M19.90 Unspecified osteoarthritis, unspecified site; M81.0 Age-related osteoporosis without current pathological fracture; T46.1X5A Adverse effect of calcium-channel blockers, initial encounter; Y92.239 Unspecified place in hospital as the place of occurrence of the external cause; E66.01 Morbid (severe) obesity due to excess calories; I95.2 Hypotension due to drugs; Z66 Do not resuscitate; Z68.32 Body mass index [BMI] 32.0-32.9, adult; Z74.01 Bed confinement status; Z79.84 Long term (current) use of oral hypoglycemic drugs; Z85.42 Personal history of malignant neoplasm of other parts of uterus; Z86.718 Personal history of other venous thrombosis and embolism; Z86.73 Personal history of transient ischemic attack (TIA), and cerebral infarction without residual deficits; Z89.621 Acquired absence of right hip joint; Z89.622 Acquired absence of left hip joint; Z90.710 Acquired absence of both cervix and uterus
CPT/HCPCS: 36415; 51701; 80048; 80053; 81001; 83036; 83605; 83735; 84100; 85025; 87040; 87086; 87150; 87181; 87633; 93005; 93306; 96361; 96374; 96376; 99285; 99291; A9270; J1650; J7120

== ENCOUNTER 2022-03-26 12:13 | Inpatient (IN) | payer MEDICARE, OTHER, MEDICAID ==
--- NOTE | 2022-03-26 15:58 | PHARMACY PROGRESS NOTE ---
- Best Possible Medication History Admit Date and Time: 03/26/22 0235 Processed by: Pharmacy Medication History completed: Yes Secondary Source(s): Previous admit records As the person ultimately responsible for medication therapy, providers are able to order a medication from an existing home medication list in [facility] via the "Reconcile Routine" prior to Confirmation of that medication by network support analyst. Such practice is discouraged except when the physician, in their clinical judgment, deems that a medical need exists for a medication without regard to previous use.
[2022-03-26] MEDS: INSULIN LISPRO 300 UNIT/3 ML PEN SUBQ SCH ×2 (17:17→21:02)
[2022-03-26] MEDS: GABAPENTIN 100 MG CAPSULE PO SCH (20:23)
[2022-03-26] MEDS: CALCIUM CARBONATE CHEW 500 MG TABLET PO SCH (20:23)
[2022-03-26] MEDS: APIXABAN 5 MG TABLET PO SCH (20:24)
[2022-03-26] MEDS: ATORVASTATIN 10 MG TABLET PO SCH (20:24)
[2022-03-26] MEDS ORDERED: METOPROLOL TARTRATE 25 MG TABLET PO SCH (21:00)
[2022-03-27] MEDS: cefTRIAXone 1 GM in SODIUM CHLORIDE 0.9% MINIBAG 100 ML IV SCH (08:41)
[2022-03-27] MEDS: APIXABAN 5 MG TABLET PO SCH ×2 (08:41→20:59)
[2022-03-27] MEDS: lisinopriL 5 MG TABLET PO SCH (08:42)
[2022-03-27] MEDS: CHOLECALCIFEROL 400 UNIT TABLET PO SCH (08:42)
[2022-03-27] MEDS: MULTIVITAMIN TABLET PO SCH (08:42)
[2022-03-27] MEDS: METOPROLOL TARTRATE 50 MG TABLET PO SCH ×2 (08:43→21:00)
[2022-03-27] MEDS: DULoxetine 30 MG CAPSULE PO SCH (08:44)
[2022-03-27] MEDS: CALCIUM CARBONATE CHEW 500 MG TABLET PO SCH ×2 (08:45→21:00)
[2022-03-27] MEDS: INSULIN LISPRO 300 UNIT/3 ML PEN SUBQ SCH ×4 (08:45→21:00)
--- NOTE | 2022-03-27 09:17 | HISTORY & PHYSICAL EXAMINATION ---
Chief Complaint - Chief Complaint Chief Complaint: E. coli bacteremia History of Present Illness - History Obtained From History obtained from: Patient - History of Present Illness HPI Comment/Other: Ms. Qiu is a 78 year old woman who is being admitted as swing bed status for continuation of IV Rocephin for E. coli bacteremia. Her sensitivity reports from blood cultures drawn on 03/23 showed the E. coli was resistant to ampicillin, Unasyn, ciprofloxacin, and Levaquin. The E.coli was sensitive to Bactrim, however, we did not feel she would get adequate therapeutic dosing with oral Bactrim due to her being bedbound following Girdlestone procedures in 2010 and 2014 and history of frequent UTIs. She will complete antibiotic therapy with IV Rocephin instead. Overall, she states she is feeling well today. History - Past Medical History Cardiovascular: reports: Hypertension, High cholesterol, Deep vein thrombosis, Murmur Respiratory: reports: Pneumonia Neuro: reports: CVA, Headaches, Peripheral neuropathy Endocrine/Autoimmune: reports: Type 2 diabetes GI: reports: GERD [employer]: reports: Ovarian cysts (removed in college. ), Uterine cancer, Other (. posstmenopausal bleeding 2019. ) : reports: Incontinence, Chronic bladder infection, Frequency HEENT: reports: Chronic sinusitis Psych: reports: Depression, Anxiety Musculoskeletal: reports: Osteoarthritis, Osteoporosis, Paraplegia Derm: reports: None MRSA Hx?: Yes - Past Surgical History General: reports: Appendectomy Ortho: reports: Hip replacement, Other /[employer]: reports: Hysterectomy HEENT: reports: Tonsil/Adenoidectomy - Family & Social History Family History Comment/Other: The patient was adopted and has no known family past medical history. Social History Notes: The patient is to Marcell, they have 3 grown children, and 2 grand-children. 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 She is bed bound. She denies alcoholism, illicit drug use or tobacco use. She wishes to be a DNR. - Substance History Use: Uses substance without health or social issues: NONE - POLST Patient has POLST: No POLST Status: DNR (POA is son Axel Qiu and secondary contact, daughter Maddy) Meds/Allgy - Home Medications Home Medications: Ambulatory Orders Medication Instructions Recorded Confirmed oxyCODONE [Roxicodone] 5 - 10 mg PO TID PRN 03/18/15 03/26/22 Amlodipine Besylate 5 mg PO QPM 10/26/18 03/26/22 Aspirin 81 mg PO DAILY 10/26/18 03/26/22 Atorvastatin [Lipitor] 10 mg PO QPM 10/26/18 03/26/22 Acetaminophen 500 mg PO DAILY PRN 12/29/18 03/26/22 Calcium Carbonate 500 mg PO Q12H PRN 12/29/18 03/26/22 Cholecalciferol (Vitamin D3) 2,000 units PO DAILY 12/29/18 03/26/22 [Vitamin D3] Clotrimazole [Clotrimazole AF] 1 applic TOP BID PRN 12/29/18 03/26/22 Diclofenac Potassium 50 mg PO TID PRN 12/29/18 03/26/22 Folic Acid 0.8 mg PO DAILY 12/29/18 03/26/22 Multivitamin W/Minerals [Theragran 1 tab PO DAILY 12/29/18 03/26/22 M] Nystatin [Nystop] 1 applic TOP DAILY PRN 12/29/18 03/26/22 Sennosides [Senna] 8.6 mg PO BID PRN 12/29/18 03/26/22 diphenhydrAMINE HCl 25 mg PO Q4H PRN 12/29/18 03/26/22 [Diphenhydramine HCl] Cetirizine [ZyrTEC] 10 mg PO DAILY 03/24/22 03/26/22 Duloxetine HCl [Cymbalta] 60 mg PO QPM 03/24/22 03/26/22 Empagliflozin [Jardiance] 10 mg PO DAILY 03/24/22 03/26/22 Gabapentin [Neurontin] 100 mg PO QPM 03/24/22 03/26/22 Loperamide HCl [Imodium A-D] 2 mg PO PRN PRN 03/24/22 03/26/22 Metformin HCl 1,000 mg PO BID 03/24/22 03/26/22 Psyllium Husk (with Sugar) [Fiber 2 tsp PO DAILY 03/24/22 03/26/22 Powder] guaiFENesin [Tussin] 5 ml PO Q4H PRN 03/24/22 03/26/22 polyethylene glycoL 3350 [Miralax] 17 gm PO DAILY PRN 03/24/22 03/26/22 - Allergies Allergies/Adverse Reactions: Allergies Allergy/AdvReac Type Severity Reaction Status Date / Time vancomycin Allergy Unknown Unknown Verified 03/23/22 13:29 adhesive tape Allergy Itching Verified 03/23/22 15:47 Review of Systems - Cardiovascular Cariovascular: denies: Chest pain - Respiratory Respiratory: denies: SOB at rest - Gastrointestinal Gastrointestinal: denies: Abdominal pain - Genitourinary Genitourinary: denies: Frequency, Urgency - All Other Systems All Other Systems: reports: Reviewed and negative Exam - Vital Signs Reviewed Vital Signs: Yes Vital Signs: Vital Signs x48h Temp Pulse Resp BP BP Pulse Ox 03/27/22 08:43 139/78 H 03/27/22 08:30 36.7 C 107 H 18 139/78 H 99 - Physical Exam General Appearance: positive: No acute distress Eyes Bilateral: positive: Normal inspection ENT: positive: No signs of dehydration Neck: positive: Nml inspection, No JVD. negative: Stiff neck Respiratory: positive: No respiratory distress, Breath sounds nml Cardiovascular: positive: Irregularly irregular Abdomen: positive: Non-tender, No distention Skin: positive: Color nml, No rash, Warm, Dry Extremities: positive: Other (Bilateral legs are externally rotated at the hips) Conclusion/Plan - Problem List (1) E coli bacteremia Conclusion/Plan: Blood culture sensitivity results showed the E. coli was resistant to ampicillin, Unasyn, ciprofloxacin, and Levaquin. It was sensitive to Bactrim, however, we do not feel she will get adequate therapeutic treatment with Bactrim due to her being bed bound with history of recurrent UTIs. We will treat her with IV Ceftriaxone 1g daily. She has completed 5 days of treatment, and will have 9 more days of antibiotic therapy remaining for a total of 14 days. (2) Type 2 diabetes mellitus Conclusion/Plan: We will continue to control her diabetes with simple sliding scale insulin four times daily. Her glucose was 233 this morning and A1C checked on 03/24 was 7.1%. We will continue to monitor her glucose levels. Upon discharge, we will continue the Metformin and Jardiance she was taking prior to admission. (3) Atrial fibrillation with RVR Conclusion/Plan: Her heart rate this morning was 107. We will control heart rate with Metoprolol 50mg BID, which is an increase from the previous 25mg BID. We will continue to monitor her heart rate while in the hospital. Her CHADS-VASC score is 4, making her a candidate for anti-coagulation. We will give her Apixaban 5mg BID. Her PCP did return our message and told us she did not have a history of A-fib previously, making her A-fib new. We will have a conversation with her about her newly diagnosed A-fib about plan of care and what further steps she would like to take for further a-fib workup. We will continue Metoprolol and Apixaban upon discharge. (4) Chronic systolic (congestive) heart failure Conclusion/Plan: An echocardiogram was done for a-fib and also showed left ventricular systolic function severely impaired with an ejection fraction of 25% to 30%. Calculated left ventricular ejection fraction is 30%. She is not having any symptoms of congestive heart failure and did not appear to have fluid overload. Due to the decline in ejection fraction, we have started her on Lisinopril 5mg daily and Furosemide 20mg every 48 hours. She is also taking Metoprolol 50mg BID. We will continue to monitor electrolytes, vitals, urine output, and daily weights. She will continue Lisinopril, Furosemide, and Metoprolol upon discharge. We will have a conversation with her about the heart failure and her thoughts about treatment and further plan of care. (5) HTN (hypertension), benign Conclusion/Plan: She is taking Metoprolol 50mg BID which has provided good control of her blood pressure. She has not been hypotensive. She also started Lisinopril for systolic heart failure as well. We will continue to monitor her blood pressure. She was taking Amlodipine 5mg daily prior to admission, but she will not continue this upon discharge. She will continue Metoprolol and Lisinopril upon discharge. (6) Bedbound Conclusion/Plan: She is bed bound following Girdl[place] procedures on bilateral hips in 2010 and 2014. She has been living in an adult family home since 2014.
[2022-03-27] MEDS: FUROSEMIDE 20 MG TABLET PO SCH (12:24)
[2022-03-27] MEDS: GABAPENTIN 100 MG CAPSULE PO SCH (21:00)
[2022-03-27] MEDS: ATORVASTATIN 10 MG TABLET PO SCH (21:00)
[2022-03-28] MEDS: INSULIN LISPRO 300 UNIT/3 ML PEN SUBQ SCH ×4 (07:58→20:59)
[2022-03-28] MEDS: APIXABAN 5 MG TABLET PO SCH ×2 (08:01→20:59)
[2022-03-28] MEDS: METOPROLOL TARTRATE 50 MG TABLET PO SCH ×2 (08:01→21:00)
[2022-03-28] MEDS: CHOLECALCIFEROL 400 UNIT TABLET PO SCH (08:02)
[2022-03-28] MEDS: lisinopriL 5 MG TABLET PO SCH (08:02)
[2022-03-28] MEDS: DULoxetine 30 MG CAPSULE PO SCH (08:02)
[2022-03-28] MEDS: MULTIVITAMIN TABLET PO SCH (08:02)
[2022-03-28] MEDS: cefTRIAXone 1 GM in SODIUM CHLORIDE 0.9% MINIBAG 100 ML IV SCH (08:05)
[2022-03-28] MEDS: CALCIUM CARBONATE CHEW 500 MG TABLET PO SCH ×2 (08:09→20:59)
[2022-03-28] MEDS: ATORVASTATIN 10 MG TABLET PO SCH (21:00)
[2022-03-28] MEDS: GABAPENTIN 100 MG CAPSULE PO SCH (21:00)
[2022-03-29] MEDS: MULTIVITAMIN TABLET PO SCH (07:58)
[2022-03-29] MEDS: INSULIN LISPRO 300 UNIT/3 ML PEN SUBQ SCH (07:58)
[2022-03-29] MEDS: cefTRIAXone 1 GM in SODIUM CHLORIDE 0.9% MINIBAG 100 ML IV SCH (08:44)
[2022-03-29] MEDS: APIXABAN 5 MG TABLET PO SCH ×2 (08:44→21:45)
[2022-03-29] MEDS: CALCIUM CARBONATE CHEW 500 MG TABLET PO SCH ×2 (08:44→21:45)
[2022-03-29] MEDS: DULoxetine 30 MG CAPSULE PO SCH (08:44)
[2022-03-29] MEDS: CHOLECALCIFEROL 400 UNIT TABLET PO SCH (08:45)
[2022-03-29] MEDS: METOPROLOL TARTRATE 50 MG TABLET PO SCH ×2 (08:47→21:45)
[2022-03-29] MEDS: lisinopriL 5 MG TABLET PO SCH (08:47)
[2022-03-29] MEDS ORDERED: CALCIUM CARB (OYSTER SHELL) 500 MG TABLET PO PRN (10:32)
--- NOTE | 2022-03-29 10:37 | PROVIDER PROGRESS NOTE ---
Progress Note March 29, 2022 10:35 AM Patient has had no interval changes in status since she was admitted. Her antibiotics and April 05. In reviewing her medications from home for diabetes and blood pressure, she is not on Norvasc here. Blood pressure is stable so I am not resuming it and keeping her on metoprolol and lisinopril. At home she takes metformin and Jardiance for her diabetes. She is not needing more than 1 unit at a time on sliding scale insulin. As such I will stop the regular glucose checks and only do daily checks. Resume her metformin 1000 mg p.o. twice daily. Encourage water intake. Jardiance may have to stop since Jardiance is associated with UTIs and her problem is E. coli bacteremia from a UTI. So at discharge she may need a different medication. Temperature is 36.6. Heart rate 84. Blood pressure 129/75. Respirations 16. 97% on room air.
[2022-03-29] MEDS: FUROSEMIDE 20 MG TABLET PO SCH (12:34)
[2022-03-29] MEDS: metFORMIN 500 MG TABLET PO SCH (17:16)
[2022-03-29] MEDS: ATORVASTATIN 10 MG TABLET PO SCH (21:45)
[2022-03-29] MEDS: GABAPENTIN 100 MG CAPSULE PO SCH (21:45)
[2022-03-30] MEDS: metFORMIN 500 MG TABLET PO SCH ×2 (08:11→17:09)
[2022-03-30] MEDS: METOPROLOL TARTRATE 50 MG TABLET PO SCH ×2 (08:11→21:14)
[2022-03-30] MEDS: MULTIVITAMIN TABLET PO SCH (08:12)
[2022-03-30] MEDS: CALCIUM CARBONATE CHEW 500 MG TABLET PO SCH ×2 (08:12→21:14)
[2022-03-30] MEDS: DULoxetine 30 MG CAPSULE PO SCH (08:12)
[2022-03-30] MEDS: APIXABAN 5 MG TABLET PO SCH ×2 (08:12→21:14)
[2022-03-30] MEDS: CETIRIZINE 10 MG TABLET PO SCH (08:12)
[2022-03-30] MEDS: FOLIC ACID 1 MG TABLET PO SCH (08:12)
[2022-03-30] MEDS: CHOLECALCIFEROL 400 UNIT TABLET PO SCH (08:12)
[2022-03-30] MEDS: lisinopriL 5 MG TABLET PO SCH (08:12)
[2022-03-30] MEDS: cefTRIAXone 1 GM in SODIUM CHLORIDE 0.9% MINIBAG 100 ML IV SCH (08:13)
[2022-03-30] MEDS ORDERED: CHOLECALCIFEROL 1000 UNIT PO SCH (09:00)
[2022-03-30] MEDS ORDERED: ASPIRIN CHEW 81 MG TABLET PO SCH (09:00)
[2022-03-30] MEDS: GABAPENTIN 100 MG CAPSULE PO SCH (21:14)
[2022-03-30] MEDS: ATORVASTATIN 10 MG TABLET PO SCH (21:14)
[2022-03-31] MEDS: cefTRIAXone 1 GM in SODIUM CHLORIDE 0.9% MINIBAG 100 ML IV SCH (09:03)
[2022-03-31] MEDS: MULTIVITAMIN TABLET PO SCH (09:05)
[2022-03-31] MEDS: CALCIUM CARBONATE CHEW 500 MG TABLET PO SCH ×2 (09:05→21:02)
[2022-03-31] MEDS: metFORMIN 500 MG TABLET PO SCH ×2 (09:05→17:11)
[2022-03-31] MEDS: APIXABAN 5 MG TABLET PO SCH ×2 (09:05→21:02)
[2022-03-31] MEDS: CHOLECALCIFEROL 400 UNIT TABLET PO SCH (09:06)
[2022-03-31] MEDS: DULoxetine 30 MG CAPSULE PO SCH (09:06)
[2022-03-31] MEDS: lisinopriL 5 MG TABLET PO SCH (09:06)
[2022-03-31] MEDS: FOLIC ACID 1 MG TABLET PO SCH (09:06)
[2022-03-31] MEDS: METOPROLOL TARTRATE 50 MG TABLET PO SCH ×2 (09:06→21:01)
[2022-03-31] MEDS: CETIRIZINE 10 MG TABLET PO SCH (09:06)
[2022-03-31] MEDS: polyethylene glycoL 3350 17 GM PACKET PO SCH (09:23)
[2022-03-31] MEDS: DOCUSATE SODIUM 250 MG CAPSULE PO SCH (09:23)
[2022-03-31] MEDS: SENNA 8.6 MG TABLET PO SCH (09:23)
[2022-03-31] MEDS: FUROSEMIDE 20 MG TABLET PO SCH (12:27)
[2022-03-31] MEDS: ATORVASTATIN 10 MG TABLET PO SCH (21:02)
[2022-03-31] MEDS: GABAPENTIN 100 MG CAPSULE PO SCH (21:02)
[2022-04-01] MEDS: cefTRIAXone 1 GM in SODIUM CHLORIDE 0.9% MINIBAG 100 ML IV SCH (08:07)
[2022-04-01] MEDS: CETIRIZINE 10 MG TABLET PO SCH (08:08)
[2022-04-01] MEDS: METOPROLOL TARTRATE 50 MG TABLET PO SCH ×2 (08:08→20:29)
[2022-04-01] MEDS: CHOLECALCIFEROL 400 UNIT TABLET PO SCH (08:08)
[2022-04-01] MEDS: lisinopriL 5 MG TABLET PO SCH (08:08)
[2022-04-01] MEDS: oxyCODONE 5 MG TABLET PO PRN ×2 (08:08→16:01)
[2022-04-01] MEDS: APIXABAN 5 MG TABLET PO SCH ×2 (08:08→20:29)
[2022-04-01] MEDS: CALCIUM CARBONATE CHEW 500 MG TABLET PO SCH ×2 (08:09→20:29)
[2022-04-01] MEDS: MULTIVITAMIN TABLET PO SCH (08:09)
[2022-04-01] MEDS: metFORMIN 500 MG TABLET PO SCH ×2 (08:09→16:42)
[2022-04-01] MEDS: DULoxetine 30 MG CAPSULE PO SCH (08:10)
[2022-04-01] MEDS: FOLIC ACID 1 MG TABLET PO SCH (08:10)
[2022-04-01] MEDS: SENNA 8.6 MG TABLET PO SCH ×4 (08:14→23:18)
[2022-04-01] MEDS: polyethylene glycoL 3350 17 GM PACKET PO SCH ×2 (08:38→12:33)
[2022-04-01] MEDS: DOCUSATE SODIUM 250 MG CAPSULE PO SCH ×2 (08:38→12:33)
[2022-04-01] MEDS ORDERED: LACTULOSE 10 GM /15 ML UDC PO STA (13:38)
[2022-04-01] MEDS: NYSTATIN POWDER 15 GM TOP PRN (15:49)
[2022-04-01] MEDS: ACETAMINOPHEN 325 MG TABLET PO PRN (16:02)
[2022-04-01] MEDS: GABAPENTIN 100 MG CAPSULE PO SCH (20:29)
[2022-04-01] MEDS: ATORVASTATIN 10 MG TABLET PO SCH (20:29)
[2022-04-02] MEDS: ACETAMINOPHEN 325 MG TABLET PO PRN (04:04)
[2022-04-02] MEDS: SENNA 8.6 MG TABLET PO SCH ×3 (06:28→21:16)
[2022-04-02] MEDS ORDERED: LACTULOSE 10 GM /15 ML UDC PO ONE (07:43)
[2022-04-02] MEDS: CETIRIZINE 10 MG TABLET PO SCH (08:30)
[2022-04-02] MEDS: cefTRIAXone 1 GM in SODIUM CHLORIDE 0.9% MINIBAG 100 ML IV SCH (08:30)
[2022-04-02] MEDS: metFORMIN 500 MG TABLET PO SCH ×2 (08:30→16:48)
[2022-04-02] MEDS: MULTIVITAMIN TABLET PO SCH (08:30)
[2022-04-02] MEDS: CALCIUM CARBONATE CHEW 500 MG TABLET PO SCH ×2 (08:30→21:17)
[2022-04-02] MEDS: DULoxetine 30 MG CAPSULE PO SCH (08:30)
[2022-04-02] MEDS: lisinopriL 5 MG TABLET PO SCH (08:31)
[2022-04-02] MEDS: APIXABAN 5 MG TABLET PO SCH ×2 (08:31→21:16)
[2022-04-02] MEDS: METOPROLOL TARTRATE 50 MG TABLET PO SCH ×2 (08:31→21:16)
[2022-04-02] MEDS: polyethylene glycoL 3350 17 GM PACKET PO SCH (08:31)
[2022-04-02] MEDS: CHOLECALCIFEROL 400 UNIT TABLET PO SCH (08:31)
[2022-04-02] MEDS: FOLIC ACID 1 MG TABLET PO SCH (08:31)
[2022-04-02] MEDS ORDERED: SENNA 8.6 MG TABLET PO SCH (09:00)
[2022-04-02] MEDS: DOCUSATE SODIUM 250 MG CAPSULE PO SCH (10:24)
[2022-04-02] MEDS: FUROSEMIDE 20 MG TABLET PO SCH (12:30)
--- NOTE | 2022-04-02 17:41 | PROVIDER PROGRESS NOTE ---
Assessment/Plan - Problem List (1) E coli bacteremia Assessment/Plan: Blood culture sensitivity results showed the E. coli was resistant to ampicillin, Unasyn, ciprofloxacin, and Levaquin. It was sensitive to Bactrim, however, we do not feel she will get adequate therapeutic treatment with Bactrim due to her being bed bound with history of recurrent UTIs. We are treating her with IV Ceftriaxone 1g daily for a total of 14 days, finishing with the a.m. dose on Tue04/05/22. (2) Type 2 diabetes mellitus Conclusion/Plan: We will continue to control her diabetes with simple sliding scale insulin four times daily. Her A1C checked on 03/24 was 7.1%. We are continuing to monitor her glucose levels. Upon discharge, we will continue the Metformin but stop the Jardiance she was taking prior to admission, since it adds to her getting UTIs (3) Atrial fibrillation with RVR Conclusion/Plan: Her heart rate is controlled with Metoprolol 50mg BID, which is an increase from the previous 25mg BID. Her CHADS-VASC score is 4, making her a candidate for anti-coagulation. We started Apixaban 5mg BID. Her PCP did return our message and told us she did not have a history of A-fib previously, making her A-fib new. We will have a conversation with her about her newly diagnosed A-fib about plan of care and what further steps she would like to take for further a-fib workup. We will continue Metoprolol and Apixaban upon discharge. (4) Chronic systolic (congestive) heart failure Conclusion/Plan: An echocardiogram was done for a-fib and also showed left ventricular systolic function severely impaired with an ejection fraction of 25% to 30%. Calculated left ventricular ejection fraction is 30%. She is not having any symptoms of congestive heart failure and did not appear to have fluid overload. Due to the low ejection fraction, we have started her on Lisinopril 5mg daily and Furosemide 20mg every 48 hours. She is also taking Metoprolol 50mg BID. She will continue Lisinopril, Furosemide, and Metoprolol upon discharge. (5) HTN (hypertension) Conclusion/Plan: She is taking Metoprolol 50mg BID and we started Lisinopril which has provided good control of her blood pressure. She was taking Amlodipine 5mg daily prior to admission, but she will not continue this upon discharge. We will continue to monitor her blood pressure. She will continue Metoprolol and Lisinopril upon discharge. (6) Bedbound Conclusion/Plan: She is bed bound following Girdlestone procedures on bilateral hips in 2010 and 2014. She has been living in an adult family home since 2014. Normally, she is able to be moved with a lift from bed to a wheelchair. She uses an electric wheelchair and is even able to get into public transportation. Since admission, she has not gotten out of bed whatsoever. Today I spoke to her about the importance of being able to be OOB, and sitting upright, in order to be discharged in the next few days. She promises me that she will start this. (7) Constipation Conclusion/Plan: Staff tells me she has not had a BM in 7 days despite escalating the bowel protocol. However, she has refused the bowel protocol entirely 2 days ago then finally allowed some parts of it yesterday and today. Also, Lactulose x1 was ordered yesterday, which she refused. An enema was ordered today which she refused. I talked her about this today and she said that having no BM for 7 days is typical for her and she is not concerned. Will promote our bowel program. To start getting OOB may also help her have a BM. - Current Meds Current Meds: Current Medications Generic Name Dose Route Start Last Admin Trade Name Freq PRN Reason Stop Dose Admin Acetaminophen 650 mg 03/26/22 13:39 04/02/22 04:04 Acetaminophen 325 Mg Tablet PO 650 mg Q4HR PRN Administration Pain 1 to 4, or Fever Apixaban 5 mg 03/26/22 21:00 04/02/22 08:31 Apixaban 5 Mg Tablet PO 5 mg BID EVE Administration Atorvastatin Calcium 10 mg 03/26/22 21:00 04/01/22 20:29 Atorvastatin 10 Mg Tablet PO 10 mg QPM EVE Administration Calcium Carbonate/Glycine 500 mg 03/26/22 21:00 04/02/22 08:30 Calcium Carbonate Chew 500 Mg Tablet PO 500 mg BID EVE Administration Cetirizine HCl 10 mg 03/30/22 09:00 04/02/22 08:30 Cetirizine 10 Mg Tablet PO 10 mg DAILY EVE Administration Cholecalciferol 800 unit 03/27/22 09:00 04/02/22 08:31 Cholecalciferol 400 Unit Tablet PO 800 unit DAILY EVE Administration Docusate Sodium 250 - 500 mg 03/31/22 09:00 04/02/22 10:24 Docusate Sodium 250 Mg Capsule PO Not Given DAILY EVE Duloxetine HCl 60 mg 03/27/22 09:00 04/02/22 08:30 Duloxetine 30 Mg Capsule PO 60 mg DAILY EVE Administration Folic Acid 1 mg 03/30/22 09:00 04/02/22 08:31 Folic Acid 1 Mg Tablet PO 1 mg DAILY EVE Administration Furosemide 20 mg 03/27/22 12:00 04/02/22 12:30 Furosemide 20 Mg Tablet PO 20 mg Q48H EVE Administration Gabapentin 100 mg 03/26/22 21:00 04/01/22 20:29 Gabapentin 100 Mg Capsule PO 100 mg QPM EVE Administration Ceftriaxone Sodium 1 gm/ 100 mls @ 200 mls/hr 03/27/22 09:00 04/02/22 09:00 Sodium Chloride IV 04/05/22 09:29 Infused DAILY EVE Infusion Lisinopril 5 mg 03/27/22 09:00 04/02/22 08:31 Lisinopril 5 Mg Tablet PO 5 mg DAILY EVE Administration Metformin HCl 1,000 mg 03/29/22 17:00 04/02/22 16:48 Metformin 500 Mg Tablet PO 1,000 mg BIDWM EVE Administration Metoprolol Tartrate 50 mg 03/27/22 09:00 04/02/22 08:31 Metoprolol Tartrate 50 Mg Tablet PO 50 mg BID EVE Administration Multivitamins 1 tab 03/27/22 08:00 04/02/22 08:30 Multivitamin Tablet PO 1 tab DAILYWM EVE Administration Nystatin 1 applic 03/29/22 10:32 04/01/22 15:49 Nystatin Powder 15 Gm TOP 1 applic DAILY PRN Administration RASH Oxycodone HCl 5 mg 03/26/22 13:39 04/01/22 16:01 Oxycodone 5 Mg Tablet PO 5 mg Q4HR PRN Administration Pain 5 to 7 Polyethylene Glycol 17 gm 03/31/22 09:00 04/02/22 08:31 Polyethylene Glycol 3350 17 Gm Packet PO 17 gm DAILY EVE Administration Senna 8.6 - 17.2 mg 04/02/22 17:00 04/02/22 16:47 Senna 8.6 Mg Tablet PO 8.6 mg BID EVE Administration - Additional Planning My Orders: My Active Orders 04/02/22 07:39 Enema [RC] .ONCE 04/02/22 07:40 Miscellaenous Nursing Order [RC] QSHIFT 04/02/22 17:00 Senna [Senokot] 8.6 - 17.2 mg PO BID Subjective - Subjective Patient Reports: Resting Comfortably, No Complaints Objective Vital Signs: Vital Signs - 24 hr 04/01/22 04/02/22 04/02/22 20:29 08:31 08:39 Temperature 36.4 C L Heart Rate [ 83 Brachial] Respiratory 18 Rate Blood Pressure 122/56 L 134/66 H Blood Pressure 134/66 H [Right Brachial artery] O2 Saturation 97 04/02/22 15:44 Temperature 36.7 C Heart Rate [ 76 Brachial] Respiratory 18 Rate Blood Pressure Blood Pressure 124/58 L [Right Brachial artery] O2 Saturation 96 Oxygen O2 Source Room air I&O (Last 24 Hrs): Intake and Output Totals x24h 03/31/22 04/01/22 04/02/22 23:59 23:59 23:59 Intake Total 850 420 910 Output Total 3167 454 7863 Balance -425 -111 -165 General: Alert, Oriented x3 HEENT: Mucous membr. moist/pink Neck: Supple, Other (Cannot evaluate JVP because of obese no) Neuro: Alert Cardiovascular: Other (Distant heart sounds due to obesity) Respiratory: No respiratory distress Abdomen: Soft Extremities: No edema - Results Results: Laboratory Results POC Whole Bld Glucose 109 mg/dL (70 - 100) H 04/02/22 07:41 Troponin I High Sens 129.3 ng/L (2.3-14.8) H* 03/28/22 07:30 - Procedures Procedures: Procedures DRAINAGE OF R UP LEG SUBCU/FASCIA, OPEN APPROACH (03/18/15) EXCISION OF R UP LEG SUBCU/FASCIA, OPEN APPROACH (03/18/15) EXCISION OF RIGHT UPPER FEMUR, OPEN APPROACH (03/18/15) EXCISION OF RIGHT UPPER LEG MUSCLE, OPEN APPROACH (03/18/15) INSERTION OF ENDOTRACHEAL AIRWAY INTO TRACHEA, ENDO (03/18/15) INSERTION OF FEEDING DEVICE INTO STOMACH, VIA OPENING (03/26/15) INSERTION OF INFUSION DEV INTO SPINAL CANAL, PERC APPROACH (03/26/15) INSERTION OF INFUSION DEVICE INTO R ATRIUM, PERC APPROACH (03/18/15) INSERTION OF SPACER INTO RIGHT HIP JOINT, OPEN APPROACH (03/18/15) INTRODUCE REGIONAL ANESTH IN EPIDURAL SPACE, PERC (03/26/15) INTRODUCTION OF NUTRITIONAL INTO CENTRAL VEIN, PERC APPROACH (03/26/15) INTRODUCTION OF NUTRITIONAL INTO PERIPH VEIN, PERC APPROACH (03/26/15) INTRODUCTION OF NUTRITIONAL INTO UP GI, VIA OPENING (03/26/15) REMOVAL OF SYNTHETIC SUBSTITUTE FROM R HIP JT, OPEN APPROACH (03/18/15) RESPIRATORY VENTILATION, LESS THAN 24 CONSECUTIVE HOURS (03/18/15) TRANSFUSE NONAUT FROZEN PLASMA IN CENTRAL VEIN, PERC (03/18/15) TRANSFUSE NONAUT FROZEN RED CELLS IN CENTRAL VEIN, PERC (03/18/15) TRANSFUSE NONAUT FROZEN RED CELLS IN PERIPH VEIN, PERC (03/26/15)
[2022-04-02] MEDS: GABAPENTIN 100 MG CAPSULE PO SCH (21:16)
[2022-04-02] MEDS: ATORVASTATIN 10 MG TABLET PO SCH (21:17)
[2022-04-03] MEDS: METOPROLOL TARTRATE 50 MG TABLET PO SCH ×2 (10:27→21:01)
[2022-04-03] MEDS: CHOLECALCIFEROL 400 UNIT TABLET PO SCH (10:27)
[2022-04-03] MEDS: DULoxetine 30 MG CAPSULE PO SCH (10:27)
[2022-04-03] MEDS: FOLIC ACID 1 MG TABLET PO SCH (10:27)
[2022-04-03] MEDS: MULTIVITAMIN TABLET PO SCH (10:27)
[2022-04-03] MEDS: metFORMIN 500 MG TABLET PO SCH ×2 (10:27→16:54)
[2022-04-03] MEDS: SENNA 8.6 MG TABLET PO SCH ×2 (10:28→21:01)
[2022-04-03] MEDS: lisinopriL 5 MG TABLET PO SCH (10:28)
[2022-04-03] MEDS: polyethylene glycoL 3350 17 GM PACKET PO SCH (10:28)
[2022-04-03] MEDS: CETIRIZINE 10 MG TABLET PO SCH (10:28)
[2022-04-03] MEDS: FUROSEMIDE 20 MG TABLET PO SCH (10:28)
[2022-04-03] MEDS: APIXABAN 5 MG TABLET PO SCH ×2 (10:28→21:01)
[2022-04-03] MEDS: DOCUSATE SODIUM 250 MG CAPSULE PO SCH (10:29)
[2022-04-03] MEDS: cefTRIAXone 1 GM in SODIUM CHLORIDE 0.9% MINIBAG 100 ML IV SCH (10:30)
[2022-04-03] MEDS: CALCIUM CARBONATE CHEW 500 MG TABLET PO SCH ×2 (10:31→21:00)
[2022-04-03] MEDS: ATORVASTATIN 10 MG TABLET PO SCH (21:01)
[2022-04-03] MEDS: GABAPENTIN 100 MG CAPSULE PO SCH (21:01)
[2022-04-04] MEDS: DOCUSATE SODIUM 250 MG CAPSULE PO SCH (08:31)
[2022-04-04] MEDS: polyethylene glycoL 3350 17 GM PACKET PO SCH (08:31)
[2022-04-04] MEDS: DULoxetine 30 MG CAPSULE PO SCH (08:31)
[2022-04-04] MEDS: CHOLECALCIFEROL 400 UNIT TABLET PO SCH (08:31)
[2022-04-04] MEDS: lisinopriL 5 MG TABLET PO SCH (08:32)
[2022-04-04] MEDS: MULTIVITAMIN TABLET PO SCH (08:32)
[2022-04-04] MEDS: metFORMIN 500 MG TABLET PO SCH ×2 (08:32→16:54)
[2022-04-04] MEDS: METOPROLOL TARTRATE 50 MG TABLET PO SCH ×2 (08:32→21:13)
[2022-04-04] MEDS: APIXABAN 5 MG TABLET PO SCH ×2 (08:32→21:13)
[2022-04-04] MEDS: CETIRIZINE 10 MG TABLET PO SCH (08:32)
[2022-04-04] MEDS: FOLIC ACID 1 MG TABLET PO SCH (08:32)
[2022-04-04] MEDS: CALCIUM CARBONATE CHEW 500 MG TABLET PO SCH ×2 (08:32→21:13)
[2022-04-04] MEDS: SENNA 8.6 MG TABLET PO SCH ×2 (08:32→21:13)
[2022-04-04] MEDS: cefTRIAXone 1 GM in SODIUM CHLORIDE 0.9% MINIBAG 100 ML IV SCH (08:33)
[2022-04-04] MEDS: oxyCODONE 5 MG TABLET PO PRN (11:25)
[2022-04-04] MEDS: GABAPENTIN 100 MG CAPSULE PO SCH (21:13)
[2022-04-04] MEDS: ATORVASTATIN 10 MG TABLET PO SCH (21:13)
[2022-04-05] MEDS: cefTRIAXone 1 GM in SODIUM CHLORIDE 0.9% MINIBAG 100 ML IV SCH (08:23)
[2022-04-05] MEDS: MULTIVITAMIN TABLET PO SCH (08:25)
[2022-04-05] MEDS: metFORMIN 500 MG TABLET PO SCH (08:25)
[2022-04-05] MEDS: lisinopriL 5 MG TABLET PO SCH (08:25)
[2022-04-05] MEDS: CETIRIZINE 10 MG TABLET PO SCH (08:25)
[2022-04-05] MEDS: CHOLECALCIFEROL 400 UNIT TABLET PO SCH (08:26)
[2022-04-05] MEDS: METOPROLOL TARTRATE 50 MG TABLET PO SCH (08:26)
[2022-04-05] MEDS: FOLIC ACID 1 MG TABLET PO SCH (08:26)
[2022-04-05] MEDS: DULoxetine 30 MG CAPSULE PO SCH (08:26)
[2022-04-05] MEDS: CALCIUM CARBONATE CHEW 500 MG TABLET PO SCH (08:26)
[2022-04-05] MEDS: APIXABAN 5 MG TABLET PO SCH (08:26)
[2022-04-05] MEDS: SENNA 8.6 MG TABLET PO SCH (08:27)
[2022-04-05] MEDS: polyethylene glycoL 3350 17 GM PACKET PO SCH (08:27)
[2022-04-05] MEDS: DOCUSATE SODIUM 250 MG CAPSULE PO SCH (08:27)
[2022-04-05] MEDS: NYSTATIN POWDER 15 GM TOP PRN (10:51)
--- NOTE | 2022-04-05 11:06 | Discharge Plan ---
"Discharge Plan for SNF / [facility] - Discharge Plan And Transition Orders Problem Reviewed?: Yes Disposition: [facility] DC/Xfer Condition: Stable Allergies and Adverse Reactions: Allergies Allergy/AdvReac Type Severity Reaction Status Date / Time vancomycin Allergy Unknown Unknown Verified 03/23/22 13:29 adhesive tape Allergy Itching Verified 03/23/22 15:47 Health Concerns: Pt was recently hospitalized 03/23/22 to 03/26/22 for sepsis from UTI with bacteremia. She has been in Swing Bed status ([facility]NF of [facility]) to complete a course of iv antibiotics. This was completed and she met all her goals. She does not stand or walk, she needs to be Zuleika lifted from bed to wheelchair. She has a grade 1 sacral decubitus. This needs daily Meplex dressing changes. She is going home with a New Cano catheter, in order not to sit in her urine or stool with this open sacral area. Home Health referral has been sent to check on her sacrun and her Cano. PCP should order when skin care and when Cano can de discontinued. Plan of Treatment: As above. Care Goals: Improvement in symptoms and stabilization of the goals. Assessment: The patient is agreeable with the plan. - SNF / [facility] Transition Orders Admit to (Facility): [place] [facility] Under the care of (Name): Dr Mueller Discharge Diagnosis: (1) E coli bacteremia Blood culture results showed her E. coli was resistant to ampicillin, Unasyn, ciprofloxacin, and Levaquin. We treated her with IV Ceftriaxone for a total of 14 days. (2) Type 2 diabetes mellitus We ordered a Diabetic diet and continued Metformin but stopped the Jardiance, since it adds to her getting UTIs. NO MORE JARDIANCE TO BE USED. (3) Atrial fibrillation with RVR Afib is new. Continue Metoprolol and Apixaban upon discharge. (4) Chronic systolic (congestive) heart failure An Echocardiogram was done and showed left ventricular systolic function severely impaired with an ejection fraction of 25-30%, a new finding. Her meds were adjusted. All new prescriptions were electronically sent to [facility] pharmacy. (5) HTN (hypertension) She is taking Metoprolol and we started Lisinopril. She was taking Amlodipine 5mg daily prior to admission, but NO MORE AMLODIPINE AFTER DISCHARGE. 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 She has been living in an adult family home since 2014. Normally, she is able to be moved with a lift from bed to a wheelchair. She uses an electric wheelchair and is even able to get into public transportation. (7) Constipation She had a BM, and is on bowel meds. (8) Sacral decubitus ulcer A Grade 1 ulcer is present on day of D/Ch. She needs daily (Meplex) dressing changes at the sacrum, and needs not to sit in a wet diaper (which was the m ethod prior to admission), therefore she is going home with a Cano catheter. Medicare Certification Statement: Notify PCP of admission and forward orders to primary provider for signature. Other Notification Orders: Call PCP immediately if patient develops dyspnea, chest pain/tightness or edema. House Bowel Program: Yes Additional Bowel Program Orders: If no BM after 2 days, nurse may give M.O.M. 30ml PO PRN and/or ducolax Supp 1 [place] and/or MARGE 250mg P.O., and/or senna 1-2 tabs PO. On day 3 nurse may give repeat above order until residents constipation is resolved. Annual Influenza Vaccine (between Jan 28 and August 27): Yes Two-step PPD per [facility] [id number] or approved exception documents: Yes Treatments & Other Orders: Daily dressing changes with Meplex, of sacral decubitus. Standard Cano catheter care. Medication Orders: PLEASE REFER TO THE DISCHARGE MEDICATION LIST. Insulin Orders?: No - Medications New Prescriptions: Apixaban [Eliquis] 5 mg PO BID #60 tab Furosemide [Lasix] 20 mg PO Q48H #15 tab Metoprolol Tartrate [Lopressor] 50 mg PO BID #60 tab lisinopriL [Zestril] 5 mg PO DAILY #30 tab - Diet Type: Geriatric (Diabetic diet) Texture: Regular Liquids: Thin May have monthly special meal: Yes - Therapies | Activity Rehabilitation Potential: Maintain present ADL Functional Activity: Activity as Tolerated Weight Bearing: None Assistance Devices: Wheelchair Follow Up: See Dr Mueller in 1-2 weeks for a hospital follow-up visit."
--- NOTE | 2022-04-05 11:44 | DISCHARGE SUMMARY ---
Discharge Summary Admit Date: 03/27/22 Discharge Date: 04/05/22 Discharging Provider: Dr Dalia Dsouza Primary Care Provider: Katherin Willis DNP @ [facility] in [place] Condition at Discharge: Stable Discharge Disposition: Home Health Service Discharge Facility Name: [facility] History of Present Illness: From the admission H&P of Dr Holly Mitchell: Ms. Qiu is a 78 year old woman who is being admitted into swing bed status ([facility]) for continuation of IV Rocephin for E. coli bacteremia. She was recently hospitalized 03/23/22 to 03/26/22 for sepsis from UTI with bacteremia. Her sensitivity reports from blood cultures drawn on 03/23/22 showed the E. coli was resistant to ampicillin, Unasyn, ciprofloxacin, and Levaquin. The E.coli was sensitive to Bactrim, however, we did not feel she would get adequate therapeutic dosing with oral Bactrim due to her being bedbound following Girdlestone procedures in 2010 and 2014 and history of frequent UTIs. She will complete antibiotic therapy with IV Rocephin instead, in swing bed status. She has history of Girdlestone procedures and is bedbound, needs to be Zuleika lifted from bed to an wheelchair. She uses an electronic wheelchair and was independent in this regard. At her assisted living facility, she urinated and defecated into a diaper and was changed every 2 hours, by report. She also has a past medical history of diabetes and hypertension. During the admission for the recent UTI with bacteremia, she was in new onset of A. fib with RVR. And she was found her to have new systolic heart failure by Echo with EF 25%. Possibly this was caused by the RVR. She is on new cardiac medications because of these findings. Her CODE BLUE status is DNR. - HOSPITAL COURSE Hospital Course: (1) E coli bacteremia Blood culture results showed her E. coli was resistant to ampicillin, Unasyn, ciprofloxacin, and Levaquin. We treated her with IV Ceftriaxone for a total of 14 days. She met all her goals. (2) Type 2 diabetes mellitus We ordered a Diabetic diet and continued Metformin but stopped the Jardiance, since it adds to her getting UTIs. No more Jardiance is to be used. (3) Atrial fibrillation with RVR Afib is new. Continue Metoprolol and Apixaban upon discharge. Needs to see PCP to decide if Cardiology referral is needed. (4) Chronic systolic (congestive) heart failure An Echocardiogram was done and showed left ventricular systolic function severely impaired with an ejection fraction of 25-30%, which was a new finding. Her meds were adjusted: Amlodipine stopped, Metoprolol increased, New Lisinopril started and Lasix every 48 hours started, which kept her out of heart failure. She needs to see her PCP to decide if a Cardiology referral is needed for work up of the new systolic heart failure. (5) HTN (hypertension) She is taking Metoprolol and we started Lisinopril. She was taking Amlodipine 5mg daily prior to admission, but no more Amlodipine to be used after DCh. 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 She has been living in an adult family home since 2014. Normally, she is able to be moved with a lift from bed to a wheelchair. She uses an electric wheelchair and is even able to get into public transportation. While here, she was Zuleika lifted into a chair once a day. (7) Constipation She had a BM, and is on many bowel meds. (8) Sacral decubitus ulcer A Grade 1 ulcer was present on day of D/Ch. She needs daily (Meplex) dressing changes at the sacrum, and needs not to sit in a wet diaper (which was the method prior to admission), therefore she is going home with a Cano catheter. A Home Health referral was sent for [facility]. - ALLERGIES Allergies/Adverse Reactions: Allergies Allergy/AdvReac Type Severity Reaction Status Date / Time vancomycin Allergy Unknown Unknown Verified 03/23/22 13:29 adhesive tape Allergy Itching Verified 03/23/22 15:47 - MEDICATIONS Home Medications: Ambulatory Orders Medication Instructions Recorded Confirmed oxyCODONE [Roxicodone] 5 - 10 mg PO TID PRN 03/18/15 03/26/22 Aspirin 81 mg PO DAILY 10/26/18 03/26/22 Atorvastatin [Lipitor] 10 mg PO QPM 10/26/18 03/26/22 Acetaminophen 500 mg PO DAILY PRN 12/29/18 03/26/22 Calcium Carbonate 500 mg PO Q12H PRN 12/29/18 03/26/22 Cholecalciferol (Vitamin D3) 2,000 units PO DAILY 12/29/18 03/26/22 [Vitamin D3] Clotrimazole [Clotrimazole AF] 1 applic TOP BID PRN 12/29/18 03/26/22 Diclofenac Potassium 50 mg PO TID PRN 12/29/18 03/26/22 Folic Acid 0.8 mg PO DAILY 12/29/18 03/26/22 Multivitamin W/Minerals [Theragran 1 tab PO DAILY 12/29/18 03/26/22 M] Nystatin [Nystop] 1 applic TOP DAILY PRN 12/29/18 03/26/22 Sennosides [Senna] 8.6 mg PO BID PRN 12/29/18 03/26/22 diphenhydrAMINE HCl 25 mg PO Q4H PRN 12/29/18 03/26/22 [Diphenhydramine HCl] Cetirizine [ZyrTEC] 10 mg PO DAILY 03/24/22 03/26/22 Duloxetine HCl [Cymbalta] 60 mg PO QPM 03/24/22 03/26/22 Gabapentin [Neurontin] 100 mg PO QPM 03/24/22 03/26/22 Loperamide HCl [Imodium A-D] 2 mg PO PRN PRN 03/24/22 03/26/22 Metformin HCl 1,000 mg PO BID 03/24/22 03/26/22 Psyllium Husk (with Sugar) [Fiber 2 tsp PO DAILY 03/24/22 03/26/22 Powder] guaiFENesin [Tussin] 5 ml PO Q4H PRN 03/24/22 03/26/22 polyethylene glycoL 3350 [Miralax] 17 gm PO DAILY PRN 03/24/22 03/26/22 Apixaban [Eliquis] 5 mg PO BID #60 tab 04/05/22 Furosemide [Lasix] 20 mg PO Q48H #15 tab 04/05/22 Metoprolol Tartrate [Lopressor] 50 mg PO BID #60 tab 04/05/22 lisinopriL [Zestril] 5 mg PO DAILY #30 tab 04/05/22 - PHYSICAL EXAM AT DISCHARGE General Appearance: positive: No acute distress, Alert Eyes Bilateral: positive: Normal inspection, EOMI ENT: positive: ENT inspection nml, No signs of dehydration Neck: positive: Nml inspection, Thyroid nml, No JVD Respiratory: positive: No respiratory distress, Breath sounds nml Cardiovascular: positive: Irregularly irregular Abdomen: positive: Non-tender, No distention Rectal: positive: Other (Cano catheter in place.) Back: positive: Other (Grade 1 sacral decubitus ulcer within the crease.) Skin: positive: Warm, Dry Extremities: positive: Non-tender, No pedal edema Neurologic/Psychiatric: positive: Other (Paretic from the waist down.) - FOLLOW UP Follow Up: See PCP in 1-2 weeks. - TIME SPENT Time Spent in Discharge (Minutes): 30
[2022-04-05 12:11] VITALS: BP 116/56
[2022-04-05] MEDS: oxyCODONE 5 MG TABLET PO PRN (12:11)
[2022-04-05] MEDS: FUROSEMIDE 20 MG TABLET PO SCH (12:11)
== END 2022-04-05 14:58 | disposition home health service (06) | DRG 690 ==
LOC: MS2 13:39
PROVIDERS: ADMIT Specialist; ATTEND Internal Medicine
DX: N39.0 Urinary tract infection, site not specified (principal); Z16.11 Resistance to penicillins; Z16.29 Resistance to other single specified antibiotic; I50.22 Chronic systolic (congestive) heart failure; B96.20 Unspecified Escherichia coli [E. coli] as the cause of diseases classified elsewhere; I48.91 Unspecified atrial fibrillation; I11.0 Hypertensive heart disease with heart failure; Z74.01 Bed confinement status; K59.00 Constipation, unspecified; R41.0 Disorientation, unspecified; Z86.718 Personal history of other venous thrombosis and embolism; Z87.440 Personal history of urinary (tract) infections; E11.42 Type 2 diabetes mellitus with diabetic polyneuropathy; Z86.73 Personal history of transient ischemic attack (TIA), and cerebral infarction without residual deficits; Z66 Do not resuscitate; Z79.84 Long term (current) use of oral hypoglycemic drugs; L89.151 Pressure ulcer of sacral region, stage 1; R00.0 Tachycardia, unspecified; R77.8 Other specified abnormalities of plasma proteins
CPT/HCPCS: 36415; 84484; 93005

== ENCOUNTER 2022-04-05 14:54 | Outpatient (CLI) | payer MEDICARE, OTHER, MEDICAID | END 2022-04-05 14:55 | disposition home or self-care (01) | LOC: EMS 14:54 | PROVIDERS: ATTEND Internal Medicine | DX: R78.81 Bacteremia (principal); R53.1 Weakness; Z74.01 Bed confinement status | CPT/HCPCS: A0425; A0428 ==

== ENCOUNTER 2022-04-17 11:03 | Outpatient (CLI) | payer MEDICARE, OTHER, MEDICAID | END 2022-04-17 11:04 | disposition EMS.NT | LOC: EMS 11:03 | DX: R41.0 Disorientation, unspecified (principal) ==

== ENCOUNTER 2022-04-21 07:55 | Outpatient (CLI) | payer MEDICARE, OTHER, MEDICAID | END 2022-04-21 07:56 | disposition critical access hospital (66) | LOC: EMS 07:55 | DX: R44.1 Visual hallucinations (principal) | CPT/HCPCS: A0425; A0429 ==

== ENCOUNTER 2022-04-21 08:10 | Emergency (ER) | payer MEDICARE, OTHER, MEDICAID ==
[2022-04-21] MEDS ORDERED: SODIUM CHLORIDE 0.9% 1,000 ML IV STA (09:31)
[2022-04-21 09:49] LABS: BASOPHILS # (AUTO) 0.1 10^3/uL (0.0-0.1); BASOPHILS % (AUTO) 0.9 %; EOSINOPHILS # (AUTO) 0.4 10^3/uL (0.0-0.7); EOSINOPHILS % (AUTO) 3.2 %; HCT - HEMATOCRIT 38.3 % (37.0-47.0); HGB - HEMOGLOBIN 11.4 g/dL (12.0-16.0); LYMPHOCYTES # (AUTO) 3.2 10^3/uL (1.5-3.5); LYMPHOCYTES % (AUTO) 23.9 %; MEAN CORPUSCULAR HEMOGLOBIN 27.9 pg (27.0-31.0); MEAN CORPUSCULAR HGB CONC 29.8 g/dL (32.0-36.0); MEAN CORPUSCULAR VOLUME 93.9 fL (81.0-99.0); MEAN PLATELET VOLUME 9.1 fL (7.9-10.8); MONOCYTES # (AUTO) 0.9 10^3/uL (0.0-1.0); MONOCYTES % (AUTO) 6.6 %; NEUTROPHILS # (AUTO) 8.6 10^3/uL (1.5-6.6); NEUTROPHILS % (AUTO) 64.9 %; PLT - PLATELET COUNT 395 10^3/uL (130-450); RED BLOOD COUNT 4.08 10^6/uL (4.20-5.40); RED CELL DISTRIBUTION WIDTH 15.9 % (12.0-15.0); WHITE BLOOD COUNT 13.2 x10^3/uL (4.8-10.8)
[2022-04-21 10:02] LABS: ALBUMIN 2.9 g/dL (3.2-5.5); ALBUMIN/GLOBULIN RATIO 0.8 (1.0-2.2); BILIRUBIN,TOTAL 0.9 mg/dL (0.2-1.0); CALCIUM 9.5 mg/dL (8.5-10.3); CREATININE 1.4 mg/dL (0.4-1.0); POTASSIUM 4.6 mmol/L (3.5-5.0); TOTAL PROTEIN 6.6 g/dL (6.7-8.2)
[2022-04-21 11:16] LABS: BILIRUBIN,URINE NEGATIVE (NEGATIVE); GLUCOSE, URINE (UA) NEGATIVE (NEGATIVE); KETONES,URINE (UA) NEGATIVE (NEGATIVE); LEUKOCYTE ESTERASE, URINE LARGE (NEGATIVE); NITRITE,URINE NEGATIVE (NEGATIVE); OCCULT BLOOD,URINE LARGE (NEGATIVE); PROTEIN,URINE 100 mg/dL (NEGATIVE); UROBILINOGEN,URINE 0.2 (NORMAL) E.U./dL (NORMAL)
[2022-04-21 11:19] LABS: CLARITY,URINE CLOUDY (CLEAR); WBC,URINE >25 /HPF (0-5)
[2022-04-21 11:20] LABS: BACTERIA,URINE Few /HPF (None Seen); SQUAMOUS EPITHELIAL CELL,UR MOD Squamous (<= Few)
[2022-04-21] MEDS ORDERED: SULFAMETH/TRIMETH DS 800/160 MG TABLET PO STA (11:44)
--- NOTE | 2022-04-21 12:04 | ED Physician Documentation ---
History of Present Illness - Stated complaint Stated Complaint: AMS - Chief complaint Chief Complaint: General - History obtained from History obtained from: Patient, EMS - Additonal information Additional information: The patient sent to the emergency department via EMS for chief complaint of confusion this morning. Staff from her adult family home reported that she seemed to be hallucinating, which is unusual for her. Patient had a urinary tract infection some weeks ago and they are wondering if it has come back. The patient recognizes that she has been a little confused lately, but Is able to clarify that she understands that thing she said were incorrect this morning. She denies any physical complaints. No abdominal pain, nausea, or dysuria. No sense of fever or chills. No back pain. No other complaints at this time. Review of Systems Ten Systems: 10 systems reviewed and negative Constitutional: reports: Reviewed and negative Eyes: reports: Reviewed and negative Ears: reports: Reviewed and negative Nose: reports: Reviewed and negative Throat: reports: Reviewed and negative Cardiac: reports: Reviewed and negative Respiratory: reports: Reviewed and negative GI: reports: Reviewed and negative : reports: Reviewed and negative Skin: reports: Reviewed and negative Musculoskeletal: reports: Reviewed and negative Neurologic: reports: Confused Psychiatric: reports: Reviewed and negative Endocrine: reports: Reviewed and negative Immunocompromised: reports: Reviewed and negative PD PAST MEDICAL HISTORY - Past Medical History Cardiovascular: Hypertension, High cholesterol, Deep vein thrombosis, Murmur Respiratory: Pneumonia Neuro: CVA, Headaches, Peripheral neuropathy Endocrine/Autoimmune: Type 2 diabetes GI: GERD 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 ), Uterine cancer, Other (. posstmenopausal bleeding 2019. 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 HEENT: Tonsil/Adenoidectomy - Present Medications Home Medications: Ambulatory Orders Medication Instructions Recorded Confirmed oxyCODONE [Roxicodone] 5 - 10 mg PO TID PRN 03/18/15 03/26/22 Aspirin 81 mg PO DAILY 10/26/18 03/26/22 Atorvastatin [Lipitor] 10 mg PO QPM 10/26/18 03/26/22 Acetaminophen 500 mg PO DAILY PRN 12/29/18 03/26/22 Calcium Carbonate 500 mg PO Q12H PRN 12/29/18 03/26/22 Cholecalciferol (Vitamin D3) 2,000 units PO DAILY 12/29/18 03/26/22 [Vitamin D3] Clotrimazole [Clotrimazole AF] 1 applic TOP BID PRN 12/29/18 03/26/22 Diclofenac Potassium 50 mg PO TID PRN 12/29/18 03/26/22 Folic Acid 0.8 mg PO DAILY 12/29/18 03/26/22 Multivitamin W/Minerals [Theragran 1 tab PO DAILY 12/29/18 03/26/22 M] Nystatin [Nystop] 1 applic TOP DAILY PRN 12/29/18 03/26/22 Sennosides [Senna] 8.6 mg PO BID PRN 12/29/18 03/26/22 diphenhydrAMINE HCl 25 mg PO Q4H PRN 12/29/18 03/26/22 [Diphenhydramine HCl] Cetirizine [ZyrTEC] 10 mg PO DAILY 03/24/22 03/26/22 Duloxetine HCl [Cymbalta] 60 mg PO QPM 03/24/22 03/26/22 Gabapentin [Neurontin] 100 mg PO QPM 03/24/22 03/26/22 Loperamide HCl [Imodium A-D] 2 mg PO PRN PRN 03/24/22 03/26/22 Metformin HCl 1,000 mg PO BID 03/24/22 03/26/22 Psyllium Husk (with Sugar) [Fiber 2 tsp PO DAILY 03/24/22 03/26/22 Powder] guaiFENesin [Tussin] 5 ml PO Q4H PRN 03/24/22 03/26/22 polyethylene glycoL 3350 [Miralax] 17 gm PO DAILY PRN 03/24/22 03/26/22 Apixaban [Eliquis] 5 mg PO BID #60 tab 04/05/22 Furosemide [Lasix] 20 mg PO Q48H #15 tab 04/05/22 Metoprolol Tartrate [Lopressor] 50 mg PO BID #60 tab 04/05/22 lisinopriL [Zestril] 5 mg PO DAILY #30 tab 04/05/22 Sulfamethox/Trimeth 800/160 1 each PO BID #14 tablet 04/21/22 [Bactrim Ds 800/160] - Allergies Allergies/Adverse Reactions: Allergies Allergy/AdvReac Type Severity Reaction Status Date / Time vancomycin Allergy Unknown Unknown Verified 03/23/22 13:29 adhesive tape Allergy Itching Verified 03/23/22 15:47 - Social History Does the pt smoke?: No Smoking Status: Never smoker Does the pt drink ETOH?: No Does the pt have substance abuse?: No - Immunizations Immunizations are current?: Yes - POLST Patient has POLST: No POLST Status: DNR (POA is son Axel Qiu and secondary contact, daughter Maddy) PD ED PE NORMAL - Vitals Vital signs reviewed: Yes - General General: Alert and oriented X 3, No acute distress, Well developed/nourished - HEENT HEENT: Atraumatic, PERRL, EOMI, Moist mucous membranes - Neck Neck: Supple, no meningeal sign - Cardiac Cardiac: RRR, No murmur, Strong equal pulses - Respiratory Respiratory: No respiratory distress, Clear bilaterally - Abdomen Abdomen: Soft, Non tender, Non distended - Derm Derm: Normal color, Warm and dry, No rash - Extremities Extremities: No deformity, No edema - Neuro Neuro: Alert and oriented X 3, 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, Normal speech - Psych Psych: Normal mood, Normal affect Results - Vitals Vitals: Oxygen O2 Source Room air - Labs Labs: Laboratory Tests 04/21/22 04/21/22 04/21/22 09:45 09:45 11:10 WBC 13.2 H RBC 4.08 L Hgb 11.4 L Hct 38.3 MCV 93.9 MCH 27.9 MCHC 29.8 L RDW 15.9 H Plt Count 395 MPV 9.1 Neut # (Auto) 8.6 H Lymph # (Auto) 3.2 [place] # (Auto) 0.9 Eos # (Auto) 0.4 Baso # (Auto) 0.1 Absolute Nucleated RBC 0.00 Nucleated RBC % 0.0 Sodium 138 Potassium 4.6 Chloride 101 Carbon Dioxide 26 Anion Gap 11.0 BUN 29 H Creatinine 1.4 H Estimated GFR (MDRD) 37 L Glucose 104 H Calcium 9.5 Total Bilirubin 0.9 AST 20 ALT 11 Alkaline Phosphatase 102 Total Protein 6.6 L Albumin 2.9 L Globulin 3.7 Albumin/Globulin Ratio 0.8 L Lipase 22 Urine Color YELLOW Urine Clarity CLOUDY Urine pH 6.0 Ur Specific [place] 1.025 Urine Protein 100 H Urine Glucose (UA) NEGATIVE Urine Ketones NEGATIVE Urine Occult Blood LARGE H Urine Nitrite NEGATIVE Urine Bilirubin NEGATIVE Urine Urobilinogen 0.2 (NORMAL) Ur Leukocyte Esterase LARGE H Urine RBC 11-25 H Urine WBC >25 H Ur Squamous Epith Cells MOD Squamous H Urine Bacteria Few Ur Microscopic Review INDICATED Urine Culture Comments NOT INDICATED PD MEDICAL DECISION MAKING - ED course Complexity details: reviewed results, re-evaluated patient, considered differential, d/w patient ED course: The pt was worked up and found to have a UTI again. I reviewed her previous culture/sensitivities, and found she had had E. coli sensitive to Bactrim. Pt was started on this. She was stable and coherent, and I felt she could be discharged home. Departure - Departure Disposition: Home, Self Care Clinical Impression: UTI (urinary tract infection) Qualifiers: Urinary tract infection type: acute cystitis Hematuria presence: without hematuria Qualified Code(s): N30.00 - Acute cystitis without hematuria Condition: Stable Instructions: ED UTI Cystitis Female Prescriptions: Sulfamethox/Trimeth 800/160 [Bactrim Ds 800/160] 1 each PO BID #14 tablet Comments: The urinalysis is positive for infection again. This is most likely why you have not been feeling quite mentally clear. You have been started on antibio tics based on your last urine culture, which was last month. The bacteria that caused your infection last time are sensitive to the antibiotic we have started you on today, so this should be effective. Please take the antibiotics, every day, as directed until the course is complete. You may follow-up with your primary doctor as needed. Discharge Date/Time: 04/21/22 12:38
[2022-04-21 12:18] VITALS: BP 110/75
== END 2022-04-21 12:38 | disposition home or self-care (01) ==
LOC: EDUNIT# → ED 08:10
DX: N30.00 Acute cystitis without hematuria (principal)
CPT/HCPCS: 36415; 51701; 80053; 81001; 83690; 85025; 99283; A9270; 81003; 87086

== ENCOUNTER 2022-04-21 12:37 | Outpatient (CLI) | payer MEDICARE, OTHER, MEDICAID | END 2022-04-21 12:38 | disposition home or self-care (01) | LOC: EMS 12:37 | DX: R41.0 Disorientation, unspecified (principal); R10.9 Unspecified abdominal pain; N39.0 Urinary tract infection, site not specified | CPT/HCPCS: A0425; A0428 ==

== ENCOUNTER → 2022-05-02 | Outpatient (CLI) | payer MEDICARE, OTHER, MEDICAID | END | disposition EMS.NT | LOC: EMS 09:35 | DX: Z03.89 Encounter for observation for other suspected diseases and conditions ruled out (principal) ==